=== PATIENT | male | born 1945 | race Caucasian/White ===

== ENCOUNTER 2022-12-15 01:49 | Inpatient (IN) ==
[2022-12-15 03:44] LABS: Hematocrit (blood only) 31.5 % (42.0-52.0); Hemoglobin 10.8 g/dl (14.0-18.0); Mean Corpuscular Hemoglobin 31.3 pg (25.0-34.0); Mean Corpuscular Hgb Conc 34.3 g/dL (32.0-36.0); Mean Corpuscular Volume 91.3 fL (80.0-100.0); Mean Platelet Volume 10.3 fL (9.4-12.4); Platelet Count 99 K/uL (130-400); RDW Coefficient of Variation 14.3 % (11.5-14.5); RDW Standard Deviation 47.9 fL (36.4-46.3); Red Blood Count 3.45 M/uL (4.70-6.10); White Blood Count 4.13 K/ul (4.8-10.8)
[2022-12-15 03:45] LABS: Albumin Level 3.2 gm/dl (3.4-5.0); BUN Creatinine Ratio 34.6 (10-20); Bilirubin Direct 0.3 mg/dl (0-0.2); Calcium 8.4 mg/dl (8.6-10.3); Creatinine Clr Calc Pharmacy 82.5 ml/min; Est GFR (African American) 98.7 ml/min; Est GFR (Non-African American) 85.1 ml/min; Magnesium 1.7 mg/dl (1.7-2.4); Potassium 3.7 mmol/L (3.5-5.1); Total Protein 5.3 gm/dl (6.0-8.3)
[2022-12-15 03:51] LABS: Troponin I High Sensitivity 30.5 pg/ml (0-20)
--- NOTE | 2022-12-15 03:56 | Emergency Department Note ---
Impression & Plan Sepsis, Elevated troponin Admit to the [facility] ED Provider Note NAME: MIKE [id number] BEATA AGE: 77 SEX: M ARRIVES VIA: Ambulance INFORMANT: Patient ED PROVIDER(S): Mckenzie Henry DO CHIEF COMPLAINT: Fever PLAN: Disposition: Admit to the [facility] Condition: Guarded MEDICAL DECISION MAKING: This is a 77-year-old male patient from [facility] who presented to the ER with a fever. Patient has a history of colorectal cancer and underwent chemotherapy last evening. Patient was apparently short of breath and confused and had a significant cough. O2 saturations were in the 80s. He was transported here for evaluation. Patient had septic protocol performed and does have an elevated lactate and procalcitonin consistent with sepsis. He was treated with broad-spectrum antibiotics. Chest x-ray was quite concerning for metastatic disease. CT scan of the chest was performed to confirm this. Patient does have an elevated troponin most likely consistent with demand ischemia. His blood pressure remained stable. I discussed the case with the [facility]. Triage Nursing notes reviewed and agree with them. Vital Signs: reviewed and remarkable for fever Differential diagnosis: Sepsis, neutropenic fever, pneumonia, UTI ER treatment provided: Cardiac monitoring, supplemental O2, twelve-lead EKG, IV Zosyn, IV vancomycin, IV normal saline bolus-total 2500 cc Diagnostics interpreted by me: ECG: Normal sinus rhythm at a rate of 96 with a poor baseline. No obvious signs of ischemia. Cardiac Monitoring: Normal sinus rhythm at 85 Laboratory studies: See below Imaging studies: As per my independent interpretation Portable chest x-ray: Diffuse metastatic disease to the lungs. HPI: 77/M arrives for evaluation of fever. Patient has history of metastatic colon cancer and underwent chemotherapy at 5 PM yesterday. He developed a fever tonight of 102.2 along with some shortness of breath, cough and confusion. O2 saturations were 88% and he was sent here for evaluation. ROS: See above HPI for pertinent positives & negatives. A total of 10 systems reviewed and were otherwise negative. PAST MEDICAL HISTORY:See Below PAST SURGICAL HISTORY:See Below FAMILY HISTORY:See Below SOCIAL HISTORY:See Below HOME MEDICATIONS:See list ALLERGIES:See list VITALS:See Below PHYSICAL EXAMINATION: HEENT: Head - normocephalic and atraumatic. Pupils are equal, round, and reactive to light. Extraocular eye muscles are intact, and sclera are anicteric. Nose - moist nasal mucosa without discharge. Mouth - moist buccal mucosa. Oropharynx is nonerythematous and there is no tonsillar exudate or edema noted. Neck: Supple; no JVD, nuchal rigidity, cervical lymphadenopathy, or auscultated bruits. Heart: Regular rate and rhythm. There is a normal S1 and S2 with no murmurs, clicks, or gallops appreciated. Lungs: Clear to auscultation bilaterally with no wheezes, rales, or rhonchi. Abdomen: Soft, completely nontender, nondistended, with good bowel sounds. There are no palpable pulsatile masses or hepatosplenomegaly. There is no guarding, rigidity, or rebound noted. Extremities: No evidence of cyanosis, clubbing, or edema. There are easily palpable peripheral pulses. Skin: Patient has maculopapular lesions about the palms and soles. Rest of his skin is warm and dry with no obvious rashes. ED COURSE: Times/Reassessments: 255 patient was evaluated in room A-10. A septic work-up performed. An order was placed for continuous cardiac monitoring. Patient was in a normal sinus rhythm at a rate of 85. Patient was bolused with a liter of normal saline solution. Chest x-ray was performed. Twelve-lead EKG was obtained. Patient went for CT scan of the chest. Patient was started on IV Zosyn and IV vancomycin. Patient received additional normal saline bolus to meet criteria of 30 mL/kg no rmal saline. I reviewed the results of the labs and radiographic studies with the patient. Mkcenzie Henry DO Past Med/Surg History Medical History (Updated 12/15/22 @ 22:56 by Mckenzie Henry DO) Cirrhosis of liver Colon cancer Constipation COPD (chronic obstructive pulmonary disease) Esophageal varices without bleeding HCV (hepatitis C virus) Hearing loss Hyperlipidemia Hypertension Hypothyroidism Inmate in correctional facility Low back pain Malignant neoplasm Thrombocytopenia Surgical History History of cataract surgery Family History Other Unknown family medical history Social History Smoking Status: Former smoker Second Hand Exposure: No; Do You Dip or Chew Tobacco: No; Tobacco Cessation Education Requested by Patient: No Hx Alcohol Use: No Hx Substance Use: No Preferred Language: Bengali Communication Ability: Effective 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: No Beliefs That Will Affect Care: None Current Living Situation: Other Current Living Situation Comment: [facility] Other Information That Helps Us Care for You: No Feels Safe at Home: Yes Safety Concerns: Feels Safe At This Time Assistive Devices: Denture - Upper, Denture - Lower and Glasses Allergies Allergies Allergy/AdvReac Type Severity Reaction Status Date / Time nitrofurantoin Allergy LISTED ON Verified 06/30/22 14:25 [From Macrobid] MEDICAL RECORD sodium chloride Allergy LISTED ON Verified 06/30/22 14:25 [From [place] Nasal] MEDICAL RECORD Home Meds Home Medications Medication Instructions Recorded Confirmed carvedilol 3.125 mg tablet 3.125 mg PO BID 04/13/21 12/15/22 diltiazem HCl 240 mg capsule,24 240 mg PO DAILY 04/13/21 12/15/22 hr,extended release enalapril maleate 10 mg tablet 10 mg PO QAM 04/13/21 12/15/22 levothyroxine 25 mcg tablet 25 mcg PO QAM 04/13/21 12/15/22 lactulose 10 gram/15 mL oral 20 g PO BID 06/30/22 12/15/22 solution tamsulosin 0.4 mg capsule 0.4 mg PO DAILY 06/30/22 12/15/22 ascorbic acid (vitamin C) 500 mg 500 mg PO DAILY 08/06/22 12/15/22 tablet ferrous gluconate 324 mg (38 mg 324 mg PO DAILY 08/06/22 12/15/22 iron) tablet Results & Data (ED) Vital Signs Vital Signs - 24 hr 12/15/22 01:51 12/15/22 01:59 12/15/22 02:00 Temperature 39 C H Temperature Source Oral Pulse Rate 100 H 98 H 98 H Respiratory Rate 22 24 Blood Pressure 132/62 130/62 Blood Pressure Mean 85 84 Pulse Oximetry 92 88 L Oxygen Delivery Method Room Air Room Air Oxygen Flow Rate Sepsis Recent Fever Within 48 Hours Yes Sepsis New/Unexplained Change in Mental Status No Sepsis Action Taken by Nursing No Action Required 12/15/22 02:15 12/15/22 02:25 12/15/22 02:30 Temperature Temperature Source Pulse Rate 93 H 92 H Respiratory Rate 21 20 Blood Pressure 122/57 L Blood Pressure Mean 78 Pulse Oximetry 92 93 91 Oxygen Delivery Method Nasal Cannula Nasal Cannula Nasal Cannula Oxygen Flow Rate 2 2 2 Sepsis Recent Fever Within 48 Hours Sepsis New/Unexplained Change in Mental Status Sepsis Action Taken by Nursing 12/15/22 02:45 12/15/22 03:00 12/15/22 03:15 Temperature Temperature Source Pulse Rate 89 87 85 Respiratory Rate 21 21 17 Blood Pressure 109/54 L Blood Pressure Mean 72 Pulse Oximetry 96 93 93 Oxygen Delivery Method Nasal Cannula Room Air Nasal Cannula Oxygen Flow Rate 2 2 Sepsis Recent Fever Within 48 Hours Sepsis New/Unexplained Change in Mental Status Sepsis Action Taken by Nursing 12/15/22 03:30 12/15/22 03:45 12/15/22 04:00 Temperature Temperature Source Pulse Rate 85 86 81 Respiratory Rate 18 17 15 Blood Pressure 114/53 L 108/49 L Blood Pressure Mean 73 68 Pulse Oximetry 93 90 87 L Oxygen Delivery Method Nasal Cannula Nasal Cannula Nasal Cannula Oxygen Flow Rate 2 2 2 Sepsis Recent Fever Within 48 Hours Sepsis New/Unexplained Change in Mental Status Sepsis Action Taken by Nursing 12/15/22 04:15 12/15/22 04:17 12/15/22 04:30 Temperature Temperature Source Pulse Rate 85 84 81 Respiratory Rate 23 24 19 Blood Pressure 116/56 L 133/52 L Blood Pressure Mean 76 79 Pulse Oximetry 94 95 95 Oxygen Delivery Method Oxymask Oxymask Oxymask Oxygen Flow Rate 4 4 4 Sepsis Recent Fever Within 48 Hours Sepsis New/Unexplained Change in Mental Status Sepsis Action Taken by Nursing 12/15/22 04:45 12/15/22 05:00 12/15/22 05:15 Temperature Temperature Source Pulse Rate 81 83 81 Respiratory Rate 19 18 20 Blood Pressure 125/52 L 134/53 L 128/52 L Blood Pressure Mean 76 80 77 Pulse Oximetry 94 95 94 Oxygen Delivery Method Oxymask Oxymask Oxymask Oxygen Flow Rate 4 4 4 Sepsis Recent Fever Within 48 Hours Sepsis New/Unexplained Change in Mental Status Sepsis Action Taken by Nursing Laboratory Data 12/15/22 02:50 12/15/22 02:50 Lab Results 12/15/22 12/15/22 12/15/22 Range/Units 02:50 02:50 02:50 WBC 4.13 L (4.8-10.8) K/ul RBC 3.45 L (4.70-6.10) M/uL Hgb 10.8 L (14.0-18.0) g/dl Hct 31.5 L (42.0-52.0) % MCV 91.3 (80.0-100.0) fL MCH 31.3 (25.0-34.0) pg MCHC 34.3 (32.0-36.0) g/dL RDW Std Deviation 47.9 H (36.4-46.3) fL RDW Coeff of Jessica 14.3 (11.5-14.5) % Plt Count 99 L (130-400) K/uL MPV 10.3 (9.4-12.4) fL Immature Gran % (Auto) 0.5 % Neut % (Auto) 93.5 % Lymph % (Auto) 1.2 % [place] % (Auto) 4.1 % Eos % (Auto) 0.2 % Baso % (Auto) 0.5 % Neut # (Auto) 3.86 (1.40-6.50) K/uL Lymph # (Auto) 0.05 L (1.2-3.4) K/uL [place] # (Auto) 0.17 (0.11-0.59) K/uL Eos # (Auto) 0.01 (0-0.50) K/uL Baso # (Auto) 0.02 (0-0.2) K/uL Immature Gran # (Auto) 0.02 (0.01-0.20) K/uL Tear Drop Cells 1+ Ovalocytes 1+ Sodium 137 (136-145) mmol/L Potassium 3.7 (3.5-5.1) mmol/L Chloride 107 (98-107) mmol/L Carbon Dioxide 21 (21-32) mmol/L Anion Gap 9 (3-11) BUN 28 H (6-23) mg/dl Creatinine 0.81 (0.6-1.4) mg/dl Est Cr Clr Drug Dosing 82.5 ml/min Est GFR ( Amer) 98.7 ml/min Est GFR (Non-Af Amer) 85.1 ml/min BUN/Creatinine Ratio 34.6 H (10-20) Glucose 165 H (70-99(Fasting)) mg/dl Lactate (0.4-2.0) mmol/L Calcium 8.4 L (8.6-10.3) mg/dl Magnesium 1.7 (1.7-2.4) mg/dl Total Bilirubin 1.0 (0.2-1.0) mg/dl Direct Bilirubin 0.3 H (0-0.2) mg/dl AST 54 H (13-39) U/L ALT 40 (7-52) U/L Alkaline Phosphatase 184 H (34-104) U/L Troponin I High Sens 30.5 H (0-20) pg/ml Total Protein 5.3 L (6.0-8.3) gm/dl Albumin 3.2 L (3.4-5.0) gm/dl Procalcitonin 2.40 H (0-0.5) ng/ml SARS-CoV-2 (PCR) (Negative) Influenza Type A (PCR) (Neg) Influenza Type B (PCR) (Neg) RSV (RT-PCR) (Neg) 12/15/22 12/15/22 12/15/22 Range/Units 03:10 03:18 05:09 WBC (4.8-10.8) K/ul RBC (4.70-6.10) M/uL Hgb (14.0-18.0) g/dl Hct (42.0-52.0) % MCV (80.0-100.0) fL MCH (25.0-34.0) pg MCHC (32.0-36.0) g/dL RDW Std Deviation (36.4-46.3) fL RDW Coeff of Jessica (11.5-14.5) % Plt Count (130-400) K/uL MPV (9.4-12.4) fL Immature Gran % (Auto) % Neut % (Auto) % Lymph % (Auto) % [place] % (Auto) % Eos % (Auto) % Baso % (Auto) % Neut # (Auto) (1.40-6.50) K/uL Lymph # (Auto) (1.2-3.4) K/uL [place] # (Auto) (0.11-0.59) K/uL Eos # (Auto) (0-0.50) K/uL Baso # (Auto) (0-0.2) K/uL Immature Gran # (Auto) (0.01-0.20) K/uL Tear Drop Cells Ovalocytes Sodium (136-145) mmol/L Potassium (3.5-5.1) mmol/L Chloride (98-107) mmol/L Carbon Dioxide (21-32) mmol/L Anion Gap (3-11) BUN (6-23) mg/dl Creatinine (0.6-1.4) mg/dl Est Cr Clr Drug Dosing ml/min Est GFR ( Amer) ml/min Est GFR (Non-Af Amer) ml/min BUN/Creatinine Ratio (10-20) Glucose (70-99(Fasting)) mg/dl Lactate 2.2 H* 1.4 (0.4-2.0) mmol/L Calcium (8.6-10.3) mg/dl Magnesium (1.7-2.4) mg/dl Total Bilirubin (0.2-1.0) mg/dl Direct Bilirubin (0-0.2) mg/dl AST (13-39) U/L ALT (7-52) U/L Alkaline Phosphatase (34-104) U/L Troponin I High Sens (0-20) pg/ml Total Protein (6.0-8.3) gm/dl Albumin (3.4-5.0) gm/dl Procalcitonin (0-0.5) ng/ml SARS-CoV-2 (PCR) NEGATIVE (Negative) Influenza Type A (PCR) Negative (Neg) Influenza Type B (PCR) Negative (Neg) RSV (RT-PCR) Negative (Neg) Administered Medications Ascorbic Acid (Ascorbic Acid 500 Mg Tab) 500 mg PO DAILY [facility] Stop: 01/14/23 09:59 Last Admin: 12/15/22 14:16 Dose: 500 mg Documented By: CHANDLER Carvedilol (Carvedilol 3.125 Mg Tab) 3.125 mg PO BID [facility]E Stop: 01/14/23 08:59 Last Admin: 12/15/22 20:53 Dose: 3.125 mg Documented By: Admin: 12/15/22 09:18 Dose: 3.125 mg Documented By: CHANDLER Diltiazem HCl (Diltiazem Hcl 240 Mg Capcr) 240 mg PO DAILY [facility] Stop: 01/14/23 08:59 Last Admin: 12/15/22 09:19 Dose: 240 mg Documented By: CHANDLER Enalapril Maleate (Enalapril Maleate 10 Mg Tab) 10 mg PO QAM [facility] Stop: 01/14/23 08:59 Last Admin: 12/15/22 09:19 Dose: 10 mg Documented By: CHANDLER Ferrous Gluconate (Ferrous Gluconate 324 Mg Tab) 324 mg PO DAILY [facility] Stop: 01/14/23 08:59 Last Admin: 12/15/22 14:16 Dose: 324 mg Documented By: CHANDLER Heparin Sodium (Porcine) (Heparin Sod 5,000 Unit/0.5 Ml Vial) 5,000 units SQ Q12 [facility]E Stop: 01/14/23 08:59 Last Admin: 12/15/22 20:53 Dose: 5,000 units Documented By: Admin: 12/15/22 09:20 Dose: 5,000 units Documented By: CHANDLER Vancomycin HCl 1,000 mg/ (Sodium Chloride) 270 mls @ 200 mls/hr IV Q12H CHARLETTE; Protocol Stop: 12/17/22 10:59 Last Infusion: 12/15/22 13:08 Dose: 0 mls/hr Documented By: Admin: 12/15/22 11:23 Dose: 200 mls/hr Documented By: CHANDLER Cefepime HCl 2,000 mg/ Syringe 20 mls @ 5 mls/min IV Q8H CHARLETTE; Protocol Stop: 12/17/22 07:59 Last Admin: 12/15/22 16:44 Dose: 5 mls/min Documented By: Admin: 12/15/22 09:18 Dose: 5 mls/min Documented By: CHANDLER Lactulose (Lactulose Syrup 20 Gm/30 Ml Udc) 20 gm PO BID [facility]E Stop: 01/14/23 08:59 Last Admin: 12/15/22 20:53 Dose: 20 gm Documented By: Admin: 12/15/22 09:19 Dose: 20 gm Documented By: CHANDLER Levothyroxine Sodium (Levothyroxine Sodium 25 Mcg Tablet) 25 mcg PO DAILYBB [facility] Stop: 01/14/23 07:14 Last Admin: 12/15/22 09:18 Dose: 25 mcg Documented By: CHANDLER Tamsulosin HCl (Tamsulosin Hcl 0.4 Mg Cap) 0.4 mg PO DAILY [facility] Stop: 01/14/23 08:59 Last Admin: 12/15/22 09:20 Dose: 0.4 mg Documented By: CHANDLER Discontinued Medications Sodium Chloride (Nss 1000ml) 2,000 mls @ 999 mls/hr IV .Q2H1M ONE Stop: 12/15/22 06:01 Last Infusion: 12/15/22 05:10 Dose: 0 mls/hr Documented By: Admin: 12/15/22 04:11 Dose: 999 mls/hr Documented By: THIERRY Vancomycin HCl 1,500 mg/ (Sodium Chloride) 530 mls @ 200 mls/hr IV NOW ONE Stop: 12/15/22 06:52 Last Admin: 12/15/22 04:54 Dose: 200 mls/hr Documented By: THIERRY Piperacillin Sod/Tazobactam Sod (Zosyn) 4.5 gm in 120 mls @ 240 mls/hr IV NOW ONE Stop: 12/15/22 04:43 Last Infusion: 12/15/22 04:57 Dose: 0 mls/hr Documented By: Admin: 12/15/22 04:20 Dose: 240 mls/hr Documented By: THIERRY Sodium Chloride (Nss 1000ml) 1,000 mls @ 100 mls/hr IV .Q10H [facility]TTE Stop: 12/15/22 23:29 Last Infusion: 12/15/22 23:26 Dose: 0 mls/hr Documented By: Admin: 12/15/22 13:26 Dose: 100 mls/hr Documented By: CHANDLER Ioversol (Optiray 350 100ml) 100 ml IV ONCE ONE Stop: 12/15/22 05:43 Last Admin: 12/15/22 05:43 Dose: 84 ml Documented By: IRVIN Discharge Plan Visit Data Chief Complaint: Fever Stated Complaint: Fever, Weakness, Confusion ED Provider: Mckenzie Henry Discharge Problem: Sepsis, Elevated troponin Patient Disposition: Admitted As Inpatient Discharge Instructions Interventions: ED Discharge Assessment Last Done: 12/15/22 06:30
[2022-12-15 04:01] LABS: Influenza A virus by PCR Negative (Neg); Influenza B virus by PCR Negative (Neg); RSV by PCR Negative (Neg); SARS CoV2 RNA(COVID-19) Ceph NEGATIVE (Negative)
[2022-12-15] MEDS ORDERED: SODIUM CHLORIDE 0.9% 1000ML 2,000 ML IV ONE (04:01)
[2022-12-15 04:10] LABS: Basophils # (auto) 0.02 K/uL (0-0.2); Basophils % (auto) 0.5 %; Eosinophils # (auto) 0.01 K/uL (0-0.50); Eosinophils % (auto) 0.2 %; Immature Granulocytes # (auto) 0.02 K/uL (0.01-0.20); Immature Granulocytes % (auto) 0.5 %; Lymphocytes # (auto) 0.05 K/uL (1.2-3.4); Lymphocytes % (auto) 1.2 %; Monocytes # (auto) 0.17 K/uL (0.11-0.59); Monocytes % (auto) 4.1 %; Neutrophils # (auto) 3.86 K/uL (1.40-6.50); Neutrophils % (auto) 93.5 %; Ovalocytes 1+; Tear Drop Cells 1+
[2022-12-15] MEDS ORDERED: PIPERACILLIN/TAZOBACTAM 4.5 GM/120 ML BAG IV ONE (04:14)
[2022-12-15] MEDS ORDERED: VANCOMYCIN CONSULT ACTIVE PRN (04:14)
[2022-12-15] MEDS ORDERED: VANCOMYCIN HCL 1,500 MG in SODIUM CHLORIDE 0.9% 500 ML IV ONE (04:14)
--- NOTE | 2022-12-15 05:26 | History & Physical Report ---
Date of Service December 15, 2022 Assessment & Plan (1) Shortness of breath: Plan: Shortness of breath * O2 via NC/oxy mask as needed. Wean as tolerated. * Chest CT pending * Blood cultures pending, urine culture pending * Empiric antibiotics: Vancomycin, cefepime. MRSA nares swab pending * Trend lactate Metastatic colon cancer with liver mets -Received chemotherapy treatments in longterm * DVT prophylaxis: SQ heparin 5000 units every 12 hours Elevated troponin * Trend troponin every 6 hours x4 Chronic conditions (hypertension, hypothyroidism, BPH, anemia): Continue home medications. Code: Full code Dispo: Med-Surg telemetry FEN/GI: Heart healthy DVT Prophylaxis: Heparin PT/OT: Consults: (2) Metastatic colon cancer to liver: (3) Pancytopenia with fever: (4) Cirrhosis of liver: History of Present Illness Primary Care Provider: SANTO Marsha Martin is a 77-year-old male patient from [facility] with a past medical history of metastatic colon cancer with liver mets, and cirrhosis of the liver, who presented to the ER with a fever. Patient has a history of colorectal cancer and underwent chemotherapy at 5 PM yesterday. Patient was apparently short of breath and confused and had a significant cough. O2 saturations were in the 80s. Temperature high as 102.2. He was transported here for evaluation. In the emergency room, temperature elevated at 39 C. CBC revealed pancytopenia. Procalcitonin of 2.4. Respiratory screen negative. EKG showed NSR at [address] elevations or other signs of ischemia. He received a 2 L bolus of normal saline, and was given IV Zosyn and vancomycin empirically. On admission, continues to endorse fatigue cough but reports improvement with shortness of breath. Allergies Allergy/AdvReac Type Severity Reaction Status Date / Time nitrofurantoin Allergy LISTED ON Verified 06/30/22 14:25 [From Macrobid] MEDICAL RECORD sodium chloride Allergy LISTED ON Verified 06/30/22 14:25 [From [place] Nasal] MEDICAL RECORD Home Medications Medication Instructions Recorded Confirmed Type carvedilol 3.125 mg tablet 3.125 mg PO BID 04/13/21 12/15/22 History diltiazem HCl 240 mg capsule,24 240 mg PO DAILY 04/13/21 12/15/22 History hr,extended release enalapril maleate 10 mg tablet 10 mg PO QAM 04/13/21 12/15/22 History levothyroxine 25 mcg tablet 25 mcg PO QAM 04/13/21 12/15/22 History lactulose 10 gram/15 mL oral 20 g PO BID 06/30/22 12/15/22 History solution tamsulosin 0.4 mg capsule 0.4 mg PO DAILY 06/30/22 12/15/22 History ascorbic acid (vitamin C) 500 mg 500 mg PO DAILY 08/06/22 12/15/22 History tablet ferrous gluconate 324 mg (38 mg 324 mg PO DAILY 08/06/22 12/15/22 History iron) tablet albuterol sulfate 90 mcg/actuation 2 puff inhalation TIDR PRN 12/17/22 Rx aerosol inhaler (Ventolin HFA) shortness of breath or wheezing #8.5 grams levofloxacin 750 mg tablet 750 mg PO DAILY #3 tabs 12/17/22 Rx Past Med/Surg History Medical History (Updated 12/16/22 @ 15:43 by Nika Rebolledo MD) Cirrhosis of liver Colon cancer Constipation COPD (chronic obstructive pulmonary disease) Esophageal varices without bleeding HCV (hepatitis C virus) Hearing loss Hyperlipidemia Hypertension Hypothyroidism Inmate in correctional facility Low back pain Malignant neoplasm Thrombocytopenia Surgical History History of cataract surgery Family History Other Unknown family medical history Social History Smoking Status: Former smoker Second Hand Exposure: No; Hx Alcohol Use: No Hx Substance Use: No Preferred Language: Belarusian Communication Ability: Effective Technology 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 Normal conjunctiva, anicteric sclera. Oropharynx normal. Respiratory: Bibasilar rhonchi L >R. Diffuse crackles. Cardiovascular: RRR without murmurs, gallops, or rubs. No edema. GI: Soft abdomen with normal bowel sounds heard on auscultation. Nontender x4 quadrants Neuro: Alert and oriented x3. Results & Data Results & Data Vital Signs (Past 12 Hours) Vital Signs Temp Pulse Resp BP Pulse Ox O2 Del Method O2 Flow Rate 12/15/22 04:15 85 23 94 Oxymask 4 12/15/22 04:00 81 15 108/49 L 87 L Nasal Cannula 2 12/15/22 03:45 86 17 90 Nasal Cannula 2 12/15/22 03:30 85 18 114/53 L 93 Nasal Cannula 2 12/15/22 03:15 85 17 93 Nasal Cannula 2 12/15/22 03:00 87 21 109/54 L 93 Room Air 12/15/22 02:45 89 21 96 Nasal Cannula 2 12/15/22 02:30 92 H 20 122/57 L 91 Nasal Cannula 2 12/15/22 02:25 93 Nasal Cannula 2 12/15/22 02:15 93 H 21 92 Nasal Cannula 2 12/15/22 02:00 98 H 24 130/62 88 L Room Air 12/15/22 01:59 98 H 12/15/22 01:51 39 C H 100 H 22 132/62 92 Room Air Supervising Physician Co-Signing Physician Notes Attending addendum: I have physically seen this patient, have supervised the medical residents activities, and agree with the H&P unless as otherwise noted. Assessment and Plan: Elevated troponin/hypertension- Troponin 30.5 on admission The patient will be admitted to telemetry for serial cardiac enzymes, serial EKG's, cardiac rhythm monitoring and a 2-D echocardiogram with Dopplers. Sepsis- Temperature 39.0 History of metastatic colon cancer status post chemotherapy yesterday Empiric antibiotics with vancomycin IV and Zosyn IV Follow all cultures and sensitivities Hypothyroidism- Continue levothyroxine BPH with LUTS- Continue tamsulosin Follow urine culture and sensitivity Hypertension- Hold enalapril- Continue carvedilol and diltiazem with hold parameters Remaining orders and notations as noted Resident Activity Tracking Resident Involvement: Resident Care Provided Care Provided: Adult Hospital Medicine
[2022-12-15] MEDS ORDERED: OPTIRAY 350 100ml IV ONE (05:42)
--- NOTE | 2022-12-15 06:11 | CT Scan Report ---
Exam(s): CT CHEST With Contrast IV Amt: 84 ML OPTIRAY 350 EXAM: CT Chest With Intravenous Contrast CLINICAL HISTORY: Reason for exam: eval pnx, mets, chf. TECHNIQUE: Axial computed tomography images of the chest with intravenous contrast. Automated exposure control was utilized for the study. A dose lowering technique was utilized adhering to the principles of ALARA. CONTRAST: Patient received 84 ML OPTIRAY 350 of IV contrast COMPARISON: No relevant prior studies available. FINDINGS: Lungs: Innumerable pulmonary nodules throughout the lungs consistent with metastatic disease, largest measuring up to approximately 1.8 cm. 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 Pleural space: No pneumothorax. No significant effusion. Heart: Mild cardiomegaly. Moderate coronary atherosclerosis. No significant pericardial effusion. Bones/joints: No acute fracture. No dislocation. Soft tissues: Unremarkable. Vasculature: See findings above and below. Lymph nodes: Multiple prominent mediastinal lymph nodes which may reflect spread of disease. Liver: Nodular liver suggestive of cirrhosis. Multiple hypodensities throughout the liver concerning for metastatic disease. Spleen: Splenomegaly and partially visualized varices in the left upper quadrant suggestive of portal hypertension. Adrenals: Approximately 2.8 cm left adrenal nodule concerning for metastatic disease. Tubes, lines and devices: Right chest port catheter with tip in the right atrium. IMPRESSION: No pneumothorax. Extensive pulmonary metastatic disease as detailed above. Incompletely imaged sequela of portal hypertension as detailed above. Superimposed liver lesions could reflect additional metastatic lesions. Correlation with clinical history and prior imaging suggested. Electronically signed by: Fausto Meng M.D. 12/15/22 06:10 AM
[2022-12-15 06:22] LABS: Appearance Urine Cloudy (Clear); Bacteria Urine Automated Negative (Negative); Bilirubin Urine Negative (Negative); Blood Urine Negative (Negative); Color Urine Dark Yellow; Glucose Urine UA Negative (Negative); Ketones Urine Trace (Negative); Leukocyte Esterase Urine Negative (Negative); Nitrite Urine Negative (Negative); Protein Urine Trace (Negative); Specific Gravity Urine 1.033 (1.000-1.030); Urobilinogen Urine Negative (Negative)
--- NOTE | 2022-12-15 07:34 | XRay Report ---
XR chest 1V portable CLINICAL HISTORY: Sepsis TECHNIQUE: Single frontal radiograph of the chest was obtained. Comparison: Comparison is made to CT chest 12/15/2022 FINDINGS: A port catheter is seen. Calcified aortic knob is seen. Multifocal nodular disease is seen within the lungs. No evidence of pleural effusion or pneumothorax. IMPRESSION: Multifocal nodular disease is seen which may represent extensive pulmonary metastases, less likely in fectious/inflammatory. Correlation with recently performed CT is recommended. ACT 112: Negative or not required by law. Electronically signed by: Anson Mccann M.D. 12/15/2022 7:33 AM
[2022-12-15] MEDS ORDERED: ACETAMINOPHEN 325 MG TAB PO PRN (08:50)
[2022-12-15] MEDS: CEFEPIME 2,000 MG in SYRINGE 0 ML IV SCH ×2 (09:18→16:44)
[2022-12-15] MEDS: LEVOTHYROXINE SODIUM 25 MCG TABLET PO SCH (09:18)
[2022-12-15] MEDS: carvediloL 3.125 MG TAB PO SCH ×2 (09:18→20:53)
[2022-12-15] MEDS: dilTIAZem HCL 240 MG CAPCR PO SCH (09:19)
[2022-12-15] MEDS: ENALAPRIL MALEATE 10 MG TAB PO SCH (09:19)
[2022-12-15] MEDS: LACTULOSE SYRUP 20 GM/30 ML UDC PO SCH ×2 (09:19→20:53)
[2022-12-15] MEDS: FERROUS GLUCONATE 324 MG TAB PO SCH ×2 (09:19→14:16)
[2022-12-15] MEDS: HEPARIN SOD 5,000 UNIT/0.5 ML VIAL SQ SCH ×2 (09:20→20:53)
[2022-12-15] MEDS: TAMSULOSIN HCL 0.4 MG CAP PO SCH (09:20)
--- NOTE | 2022-12-15 10:11 | Pharmacy Report ---
Pharmacy PK ABX Note - Date of Service December 15, 2022 - Assessment and Plan Assessment 77 year old M receiving empiric vancomycin and cefepime for treatment of febrile illness in context of metastatic colon cancer. Pertinent microbiologic data includes: Negative MRSA Nasal Swab, blood cultures x 2 pending. Hospitalist aware of negative MRSA swab, but would like to continue vancomycin for at least 48 hours given complicated PMH. Most recent administration of chemotherapy was yesterday @~1700. On presentation, patient febrile w/ confusion and shortness of breath. Day # 1 of antimicrobial therapy. Plan Vancomycin * Loading dose: 1500 mg IV x 1 * Maintenance dose: 1000 mg IV every 12 hours * Regimen is predicted to achieve target AUC/LAKIA of 400-600 mg/L.hr * Random level ordered for: 12/17/22 Cefepime * 2 g IV q8h - appropriate based on indication/renal function Pharmacy will continue to follow and will adjust dose/frequency as necessary. Thank you. Pharmacy has transitioned to AUC monitoring for vancomycin. AUC/LAKIA is the preferred PK/PD target and is associated with decreased risk of nephrotoxicity compared to traditional trough targets.
--- NOTE | 2022-12-15 11:03 | History & Physical Bridge Note ---
Date of Service December 15, 2022 History & Physical Bridge Note I have reviewed the History & Physical and in the interval since the performance of the History & Physical I have noted the following changes of clinical significance: Added serial troponin to trend given elevation on admission but suspect demand i schemia in setting of sepsis. MRSA swab negative but given port, possible PNA superimposed on pulm mets, and on chemotherapy, will continue Vanco empirically until BCxs neg for at least 48 hours. Added home Vit C which he wants to take with his Fe pill as he does at home Reviewed CT Chest-extensive metastatic dz and nodules, possible lymphangitic spread
[2022-12-15] MEDS: VANCOMYCIN HCL 1,000 MG in SODIUM CHLORIDE 0.9% 250 ML IV SCH (11:23)
[2022-12-15] MEDS ORDERED: SODIUM CHLORIDE 0.9% 1000ML 1,000 ML IV SCH (13:30)
[2022-12-15] MEDS: ASCORBIC ACID 500 MG TAB PO SCH (14:16)
[2022-12-16] MEDS: VANCOMYCIN HCL 1,000 MG in SODIUM CHLORIDE 0.9% 250 ML IV SCH ×3 (00:11→23:00)
[2022-12-16] MEDS: CEFEPIME 2,000 MG in SYRINGE 0 ML IV SCH ×3 (00:11→15:54)
[2022-12-16] MEDS ORDERED: HEPARIN 100 UNIT/ML 5ML FLUSH FLUSH PRN (01:03)
--- NOTE | 2022-12-16 05:53 | Electrocardiogram Report ---
Test Reason : Blood Pressure : / mmHG Vent. Rate : 096 BPM Atrial Rate : 096 BPM P-R Int : 160 ms QRS Dur : 136 ms QT Int : 494 ms P-R-T Axes : 058 -41 000 degrees QTc Int : 624 ms Poor data quality, interpretation may be adversely affected Sinus rhythm Left axis deviation Non-specific intra-ventricular conduction block Nonspecific T wave abnormality Abnormal ECG No previous ECGs available Confirmed by Keegan العراقي ([id number]) on 12/16/2022 5:53:39 AM Referred By: [facility] Confirmed By:Keegan العراقي
[2022-12-16] MEDS: LEVOTHYROXINE SODIUM 25 MCG TABLET PO SCH (06:04)
[2022-12-16 07:27] LABS: Basophils # (auto) 0.02 K/uL (0-0.2); Basophils % (auto) 0.5 %; Eosinophils # (auto) 0.09 K/uL (0-0.50); Eosinophils % (auto) 2.2 %; Hematocrit (blood only) 31.1 % (42.0-52.0); Hemoglobin 10.7 g/dl (14.0-18.0); Immature Granulocytes # (auto) 0.02 K/uL (0.01-0.20); Immature Granulocytes % (auto) 0.5 %; Lymphocytes # (auto) 0.16 K/uL (1.2-3.4); Lymphocytes % (auto) 3.9 %; Mean Corpuscular Hemoglobin 30.9 pg (25.0-34.0); Mean Corpuscular Hgb Conc 34.4 g/dL (32.0-36.0); Mean Corpuscular Volume 89.9 fL (80.0-100.0); Mean Platelet Volume 10.9 fL (9.4-12.4); Monocytes % (auto) 7.3 %; Neutrophils # (auto) 3.51 K/uL (1.40-6.50); Neutrophils % (auto) 85.6 %; Platelet Count 86 K/uL (130-400); RDW Coefficient of Variation 14.4 % (11.5-14.5); RDW Standard Deviation 47.5 fL (36.4-46.3); Red Blood Count 3.46 M/uL (4.70-6.10)
[2022-12-16 07:46] LABS: Albumin Globulin Ratio 1.4 (0.9-2); BUN Creatinine Ratio 46.9 (10-20); Bilirubin,Total 0.9 mg/dl (0.2-1.0); Calcium 8.5 mg/dl (8.6-10.3); Creatinine Clr Calc Pharmacy 104.4 ml/min; Est GFR (African American) 108.7 ml/min; Est GFR (Non-African American) 93.8 ml/min; Globulin 2.1 gm/dl (2.5-4.0); Magnesium 1.8 mg/dl (1.7-2.4); Phosphorus 2.5 mg/dl (2.5-4.9); Total Protein 5.1 gm/dl (6.0-8.3)
[2022-12-16] MEDS: carvediloL 3.125 MG TAB PO SCH ×2 (09:09→20:16)
[2022-12-16] MEDS: ASCORBIC ACID 500 MG TAB PO SCH (09:10)
[2022-12-16] MEDS: dilTIAZem HCL 240 MG CAPCR PO SCH (09:10)
[2022-12-16] MEDS: ENALAPRIL MALEATE 10 MG TAB PO SCH (09:10)
[2022-12-16] MEDS: FERROUS GLUCONATE 324 MG TAB PO SCH (09:11)
[2022-12-16] MEDS: HEPARIN SOD 5,000 UNIT/0.5 ML VIAL SQ SCH ×2 (09:11→20:16)
[2022-12-16] MEDS: TAMSULOSIN HCL 0.4 MG CAP PO SCH ×3 (09:13→20:16)
[2022-12-16] MEDS: LACTULOSE SYRUP 20 GM/30 ML UDC PO SCH ×2 (09:26→20:16)
--- NOTE | 2022-12-16 15:44 | Hospitalist Progress Note ---
Date of Service December 16, 2022 Assessment & Plan (1) Acute respiratory failure with hypoxia: Plan: Secondary to known diffuse pulmonary metastatic disease, COPD, cannot rule out superimposed pneumonia Remains on 4 L nasal cannula Continue with antibiotics -Wean off oxygen as able to -Check viral respiratory panel (2) Rash: Plan: On palms and soles of feet since 12/15 as per patient With associated fever and some loose stools Question of as jhuj-dacw-ifh-mouth disease although no oral lesions visualized at this time This could be the source of his fever Doubt this is an allergic reaction Continue to follow (3) Sepsis: Plan: With fever, tachycardia, and source of either pneumonia versus viral infection as above, possible bacteremia. Does have a port in place and is on chemotherapy -Continue to monitor blood cultures-no growth to date -Checking viral respiratory bio fire panel -Received IV fluids which have now been stopped -Continue broad-spectrum antibiotics with IV cefepime and vancomycin, but if cultures remain negative and remains afebrile and no longer neutropenic, can likely stop antibiotics tomorrow (4) Antineoplastic chemotherapy induced pancytopenia: Plan: Mildly reduced counts Secondary to chemotherapy Also with a history of cirrhosis contributing -Follow CBC in the morning (5) Metastatic colon cancer to liver: Plan: Currently undergoing chemotherapy With metastatic disease to the liver and lungs (6) Cirrhosis of liver: Plan: Noted, presumed secondary to history of hepatitis C Continue lactulose (7) Elevated troponin: Plan: Minimally elevated on admission and trended downward to normal Myocardial demand ischemia in the setting of sepsis No further work-up needed No ischemic changes on ECG (8) COPD (chronic obstructive pulmonary disease): Plan: Continue supplemental O2 as needed Add on albuterol 3 times daily scheduled (9) Hypothyroidism: Plan: Continue home levothyroxine TSH here is normal at 4.1 (10) Hypertension: Plan: Blood pressures are fairly well controlled Continue carvedilol, diltiazem, enalapril Plan DVT prophylaxis-heparin SQ Disposition-continued stay Admission and Anticipated Discharge Date Admission Date: December 15, 2022 Subjective Patient feeling better today. Has noticed a rash on his hands and feet. No sores in the mouth. Still with mild cough. No abdominal pain. Has had a couple of loose stools. No further fevers Telemetry with normal sinus rhythm with rates in the 60s to 70s Physical Exam Constitutional: WD/WN, vitals as above Eyes: + anicteric sclerae Respiratory: normal respiratory effort and + cough Auscultation: + crackles (Bilateral lower and middle lung fuentes) Cardiovascular: Rate/Rhythm: regular rate and regular rhythm Heart Sounds: no murmur Gastrointestinal (Abdomen): normal bowel sounds, soft, nontender, no hepatosplenomegaly Skin: Erythematous macular rash on palms and soles of feet only, no lesions or sores in the mouth or lips No vesicles Results & Data Results & Data Vital Signs (Past 12 Hours) Vital Signs Temp Pulse Resp BP Pulse Ox O2 Del Method O2 Flow Rate 12/16/22 15:24 37.1 C 73 18 138/66 94 Nasal Cannula 4 12/16/22 11:37 37.0 C 70 20 115/76 95 Nasal Cannula 4 12/16/22 08:00 Nasal Cannula 4 12/16/22 07:47 36.4 C L 61 18 118/60 94 Nasal Cannula 4 Laboratory Results CBC, BMP, LFTs, magnesium level reviewed PG Care Time/CCT Total # of Minutes Spent Total Time Spent with Patient: Total time spent is greater than 50% in coordination of care (as documented) at patient's floor/unit and/or counseling patient: Coding Level of Care Code 64820 SUB INP/OBS CARE 3/50MIN Diagnoses Acute respiratory failure with hypoxia J96.01 Rash R21 Sepsis A41.9 Antineoplastic chemotherapy induced pancytopenia D61.810; T45.1X5A Metastatic colon cancer to liver C18.9; C78.7 Cirrhosis of liver K74.60 Elevated troponin R77.8 COPD (chronic obstructive pulmonary disease) J44.9 Hypothyroidism E03.9 Hypertension I10
[2022-12-17] MEDS: CEFEPIME 2,000 MG in SYRINGE 0 ML IV SCH (00:33)
[2022-12-17] MEDS: ALBUTEROL HFA 8 GM INHALER INH SCH ×3 (01:07→13:27)
[2022-12-17 02:08] LABS: Adenovirus PCR Not Detected (NotDetected); Bordetella parapertussis PCR Not Detected (NotDetected); Bordetella pertussis PCR Not Detected (NotDetected); Chlamydia pneumoniae PCR Not Detected (NotDetected); Coronavirus 229E PCR Not Detected (NotDetected); Coronavirus CoV-2 (COVID19)PCR Not Detected (NotDetected); Coronavirus HKU1 PCR Not Detected (NotDetected); Coronavirus NL63 PCR Not Detected (NotDetected); Coronavirus OC43PCR Not Detected (NotDetected); Human Metapneumovirus PCR Not Detected (NotDetected); Influenza A PCR Not Detected (NotDetected); Influenza B PCR Not Detected (NotDetected); Mycoplasma pneumoniae PCR Not Detected (NotDetected); Parainfluenza Virus 1 PCR Not Detected (NotDetected); Parainfluenza Virus 2 PCR Not Detected (NotDetected); Parainfluenza Virus 3 PCR Not Detected (NotDetected); Parainfluenza Virus 4 PCR Not Detected (NotDetected); Respiratory Syncytial VirusPCR Not Detected (NotDetected); Rhinovirus/Enterovirus PCR Not Detected (NotDetected)
[2022-12-17] MEDS: LEVOTHYROXINE SODIUM 25 MCG TABLET PO SCH (05:47)
[2022-12-17 06:07] LABS: Basophils # (auto) 0.01 K/uL (0-0.2); Basophils % (auto) 0.3 %; Eosinophils # (auto) 0.12 K/uL (0-0.50); Hematocrit (blood only) 29.5 % (42.0-52.0); Hemoglobin 10.2 g/dl (14.0-18.0); Immature Granulocytes # (auto) 0.02 K/uL (0.01-0.20); Immature Granulocytes % (auto) 0.7 %; Lymphocytes # (auto) 0.28 K/uL (1.2-3.4); Lymphocytes % (auto) 9.4 %; Mean Corpuscular Hemoglobin 31.2 pg (25.0-34.0); Mean Corpuscular Hgb Conc 34.6 g/dL (32.0-36.0); Mean Corpuscular Volume 90.2 fL (80.0-100.0); Mean Platelet Volume 10.1 fL (9.4-12.4); Monocytes # (auto) 0.33 K/uL (0.11-0.59); Monocytes % (auto) 11.1 %; Neutrophils # (auto) 2.22 K/uL (1.40-6.50); Neutrophils % (auto) 74.5 %; Platelet Count 75 K/uL (130-400); RDW Coefficient of Variation 14.3 % (11.5-14.5); RDW Standard Deviation 47.8 fL (36.4-46.3); Red Blood Count 3.27 M/uL (4.70-6.10); White Blood Count 2.98 K/ul (4.8-10.8)
[2022-12-17 06:24] LABS: Albumin Globulin Ratio 1.6 (0.9-2); Albumin Level 2.9 gm/dl (3.4-5.0); BUN Creatinine Ratio 37.5 (10-20); Bilirubin,Total 0.8 mg/dl (0.2-1.0); Calcium 8.1 mg/dl (8.6-10.3); Creatinine Clr Calc Pharmacy 119.3 ml/min; Est GFR (African American) 114.8 ml/min; Est GFR (Non-African American) 99.1 ml/min; Globulin 1.8 gm/dl (2.5-4.0); Magnesium 1.6 mg/dl (1.7-2.4); Phosphorus 2.2 mg/dl (2.5-4.9); Potassium 3.7 mmol/L (3.5-5.1); Total Protein 4.7 gm/dl (6.0-8.3)
[2022-12-17] MEDS ORDERED: CEFEPIME 2,000 MG in SYRINGE 0 ML IV ONE (09:00)
[2022-12-17] MEDS ORDERED: POTASSIUM PHOS 3 MMOL/1 ML INFUSION IV STA (09:12)
[2022-12-17] MEDS: dilTIAZem HCL 240 MG CAPCR PO SCH (09:20)
[2022-12-17] MEDS: HEPARIN SOD 5,000 UNIT/0.5 ML VIAL SQ SCH (09:20)
[2022-12-17] MEDS: LACTULOSE SYRUP 20 GM/30 ML UDC PO SCH (09:21)
[2022-12-17] MEDS: FERROUS GLUCONATE 324 MG TAB PO SCH (09:21)
[2022-12-17] MEDS: ENALAPRIL MALEATE 10 MG TAB PO SCH (09:21)
[2022-12-17] MEDS: ASCORBIC ACID 500 MG TAB PO SCH (09:22)
[2022-12-17] MEDS: carvediloL 3.125 MG TAB PO SCH (09:22)
[2022-12-17] MEDS ORDERED: POTASSIUM PHOSPHATE 15 MMOL in SODIUM CHLORIDE 0.9% 250 ML IV ONE (10:00)
[2022-12-17] MEDS: MAGNESIUM SULFATE / D5W 1 GM/100 ML BAG IV SCH ×2 (10:06→12:07)
--- NOTE | 2022-12-17 12:45 | Discharge Summary ---
Date of Service December 17, 2022 Admission HPI Per Admitting Provider Mario is a 77-year-old male patient from [facility] with a past medical history of metastatic colon cancer with liver mets, and cirrhosis of the liver, who presented to the ER with a fever. Patient has a history of colorectal cancer and underwent chemotherapy at 5 PM yesterday. Patient was apparently short of breath and confused and had a significant cough. O2 saturations were in the 80s. Temperature high as 102.2. He was transported here for evaluation. In the emergency room, temperature elevated at 39 C. CBC revealed pancytopenia. Procalcitonin of 2.4. Respiratory screen negative. EKG showed NSR at [address] elevations or other signs of ischemia. He received a 2 L bolus of normal saline, and was given IV Zosyn and vancomycin empirically. On admission, continues to endorse fatigue cough but reports improvement with shortness of breath. Principal Diagnosis Febrile illness, likely viral syndrome, possible pneumonia Rash Antineoplastic induced pancytopenia Discharge Exam Constitutional WD/WN, vitals as above Eyes + anicteric sclerae ENMT No lesions or sores on the lips or mouth Respiratory normal respiratory effort Auscultation: + crackles (Bilateral lower and middle lung fuentes); no rhonchi and no wheezes Cardiovascular Rate/Rhythm: regular rate and regular rhythm Heart Sounds: no murmur Gastrointestinal (Abdomen) normal bowel sounds, soft, nontender, no hepatosplenomegaly Skin Erythematous macular rash on palms and soles of feet, no rashes anywhere else Neurologic no focal motor deficits and not confused Discharge Data Allergies Allergy/AdvReac Type Severity Reaction Status Date / Time nitrofurantoin Allergy LISTED ON Verified 06/30/22 14:25 [From Macrobid] MEDICAL RECORD sodium chloride Allergy LISTED ON Verified 06/30/22 14:25 [From Mineral Nasal] MEDICAL RECORD Consultations 12/15/22 04:52 ED Decision to Admit Stat Ordered Studies 12/15/22 04:59 CT chest diagnostic w con Urgent Hospital Course (1) Acute respiratory failure with hypoxia: Secondary to known diffuse pulmonary metastatic disease, COPD, cannot rule out superimposed pneumonia Viral respiratory bio fire PCR panel all negative Cough is improved, not short of breath Remains on 4 L nasal cannula and should continue this after discharge Finish out 3 more day course of levofloxacin in case of superimposed pneumonia -Wean off oxygen as able to at the present but likely not able to given diffuse pulmonary metastases (2) Rash: On palms and soles of feet since 12/15 as per patient With associated fever and some loose stools which are now resolved Question of as uikx-cvjs-oix-mouth disease although no oral lesions visualized at this time This could be the source of his fever Doubt this is an allergic reaction Continue to follow after discharge-discussed with physician from custodial Self-limiting (3) Sepsis: With fever, tachycardia, and source of either pneumonia versus viral infection as above. Bacteremia has now been ruled out with negative blood cultures over 48 hours at the time of discharge. Does have a port in place and is on chemotherapy -Continue to monitor blood cultures after discharge-no growth to date - viral respiratory bio fire panel is negative -Received IV fluids which have now been stopped -Received as broad-spectrum antibiotics with IV cefepime and vancomycin, but as cultures remain negative and remains afebrile and not neutropenic, would simply finish out 3 more days of levofloxacin empirically (4) Antineoplastic chemotherapy induced pancytopenia: Mildly reduced counts with hemoglobin 10.2, platelets 75, WBC 2.9 with ANC 2200 on the day of discharge Secondary to chemotherapy Also with a history of cirrhosis contributing -Follow CBC with oncology in 1 week -Transfusional support as needed with oncology (5) Metastatic colon cancer to liver: Currently undergoing chemotherapy With metastatic disease to the liver and lungs (6) Cirrhosis of liver: Noted, presumed secondary to history of hepatitis C Continue lactulose (7) Elevated troponin: Minimally elevated on admission and trended downward to normal Myocardial demand ischemia in the setting of sepsis No further work-up needed No ischemic changes on ECG (8) COPD (chronic obstructive pulmonary disease): Continue supplemental O2 as needed Continue on albuterol 3 times daily scheduled (9) Hypothyroidism: Continue home levothyroxine TSH here is normal at 4.1 (10) Hypertension: Blood pressures are fairly well controlled Continue carvedilol, diltiazem, enalapril Plan DVT prophylaxis-heparin SQ Disposition-stable for discharge to the custodial. Discussed his care with the custodial physician on the day of discharge Total Time Total Time Spent Total Time Spent (In Minutes): 40 minutes Discharge Plan Discharge Items [facility]position[facility] Reason For Visit: FEVER, SOB, ALTERED MENTAL STATUS Discharge Diagnosis: Fever, suspected viral syndrome, possible pneumonia/bronchitis Antineoplastic-induced chemotherapy Acute respiratory failure with hypoxia Condition on Discharge: Fair Activity: Resume your previous activity Non-emergency contact: Primary Care Provider and Oncologist Call non-emergency contact if: you have any medication questions, your symptoms worsen, you have a fever and your temperature is above 101 Follow-up/Referrals: Marsha BLANCHARD [Primary Care Provider] - Diet: Regular Addtl Attending Provider Instructions: Please take Levaquin for 3 more days as an antibiotic in case of pneumonia. Most likely this was a viral syndrome given the rash on your hands and feet, but that rash could possibly be some sort of reaction to your chemotherapy. Your blood counts are low from your chemotherapy and should be followed by your oncologist. You should remain on 4L nasal cannula. Pending Studies at Discharge: Yes Studies:: Final blood cultures-no growth to date Stand-Alone Forms: My [facility] Skilled Items Patient informed of condition?: Yes Discharge Level of Care: Other Communicable Disease: No Discharge Prognosis: Improving Lines: None Urinary Catheter: No Medications and DC Order Prescriptions: New albuterol sulfate [Ventolin HFA] 90 mcg/actuation Hfa Aerosol Inhaler 2 puff inhalation TIDR PRN (Reason: shortness of breath or wheezing) Qty: 8.5 0RF levofloxacin 750 mg tablet 750 mg PO DAILY Qty: 3 0RF Continued ascorbic acid (vitamin C) 500 mg tablet 500 mg PO DAILY ferrous gluconate 324 mg (38 mg iron) tablet 324 mg PO DAILY lactulose 10 gram/15 mL Solution 20 g PO BID tamsulosin 0.4 mg Capsule 0.4 mg PO DAILY enalapril maleate 10 mg Tablet 10 mg PO QAM diltiazem HCl 240 mg Capsule,Extended Release 24 Hr 240 mg PO DAILY carvedilol 3.125 mg Tablet 3.125 mg PO BID levothyroxine 25 mcg Tablet 25 mcg PO QAM Discharge Orders: Discharge Order (Routine); Ordered 12/17/22 Ordered By: Nika Rebolledo Admission Data Admit Date/Time: 12/15/22 05:31 Attending Provider: Nika Rebolledo Admit Provider: Eddie Skelton Primary Care Provider: Marsha BLANCHARD Other Providers: Sean Mierles Other Interventions: Discharge Summary Assessment (RN) Last Done: 12/17/22 13:38 Coding Level of Care Code 06894 INP/OBS DISCH >30 MIN Diagnoses Acute respiratory failure with hypoxia J96.01 Rash R21 Sepsis A41.9 Antineoplastic chemotherapy induced pancytopenia D61.810; T45.1X5A Metastatic colon cancer to liver C18.9; C78.7 Cirrhosis of liver K74.60 Elevated troponin R77.8 COPD (chronic obstructive pulmonary disease) J44.9 Hypothyroidism E03.9 Hypertension I10
--- NOTE | 2022-12-18 02:12 | Billing Data ---
Date of Service December 18, 2022 Coding Level of Care Code 04394 INT INP/OBS CARE
--- NOTE | 2022-12-18 06:16 | Electrocardiogram Report ---
Test Reason : Blood Pressure : / mmHG Vent. Rate : 080 BPM Atrial Rate : 080 BPM P-R Int : 176 ms QRS Dur : 106 ms QT Int : 390 ms P-R-T Axes : 044 -24 027 degrees QTc Int : 449 ms Normal sinus rhythm Incomplete right bundle branch block Borderline ECG When compared with ECG of 15-DEC-2022 02:08, Incomplete right bundle branch block has replaced Non-specific intra-ventricular conduction block Confirmed by Keegan العراقي ([id number]) on 12/18/2022 6:16:28 AM Referred By: [facility] Confirmed By:Keegan العراقي
== END 2022-12-17 15:23 | DRG 871 ==
LOC: ED 01:49 → 2S 05:31 → SUATTDRO 05:31 → 2S 06:30

== ENCOUNTER 2023-02-20 16:10 | Inpatient (IN) ==
[2023-02-20] MEDS ORDERED: ONDANSETRON INJ 2 MG/ML 2 ML VIAL IV STA (16:35)
[2023-02-20] MEDS ORDERED: MoRPHine SULFATE 4 MG/ML 1 ML CARP\\VIAL IV STA (16:35)
[2023-02-20] MEDS ORDERED: SODIUM CHLORIDE 0.9% 1000ML 1,000 ML IV STA (16:35)
--- NOTE | 2023-02-20 16:37 | Emergency Department Note ---
Impression & Plan Cecum perforation, Abdominal pain, Intra-abdominal abscess ED Provider Note HISTORY OF PRESENT ILLNESS: Patient is a 77-year-old male presenting with abdominal pain and abdominal di stention. Patient reports he has had progressively worsening abdominal pain over the last 3 weeks and his abdomen has been more more distended. He reports significant decrease in his appetite and multiple episodes of nausea but no vomiting. He reports decreased stool output and reports that when he does have a bowel movement it is a "yellow mustard consistency." Denies any chest pain but does report some increasing shortness of breath. Denies any DVT or PE history. ROS: as above PHYSICAL EXAM: Constitutional: Patient appears in no acute distress. HENT: Head: Normocephalic and atraumatic. Eyes: EOMI, PERRL Mouth/Throat: Mucous membranes moist. Neck: Trachea midline. Neck supple. Cardiovascular: RRR, No murmurs, rubs or gallops. Intact distal pulses. Pulmonary/Chest: No respiratory distress. Breath sounds clear and equal bilaterally. No wheezes or rales. Abdominal: BS +. Abdomen soft. Generalized tenderness to palpation with guarding Musculoskeletal: No edema, tenderness or deformity noted. Skin: Warm and dry. No rash, erythema, pallor or cyanosis Psychiatric: Appropriate mood and affect for situation. Neurological: Alert and keenly responsive. CN II-XII grossly intact, moving all extremities equally and fully. MDM: - Vitals signs stable. - History obtained via patient. Patient presents with abdominal pain and abdominal distention. Patient reports progressively worsening abdominal pain over the last 3 weeks and progressively worsening distention. Reports significant decrease in appetite and multiple episodes of nausea but no vomiting. Has had decreased stool output. Denies any DVT or PE history. Reports some increasing shortness of breath over the last few weeks. - Chronic conditions affecting care: colon cancer; HTN; HLD; hypothyroidism; thrombocytopenia; COPD; cirrhosis of liver - Differential diagnoses include, but are not limited to: Perforated viscus; small bowel obstruction; diverticulitis - Order placed for continuous cardiac monitoring. At this time, monitor showed rate of 85 bpm with normal sinus rhythm, per my interpretation. - External medical records reviewed. Patient has a history of metastatic cecal cancer. - Patient given 1L NS, 4 mg IV zofran and 4 mg IV morphine for symptomatic management in ER. - Laboratory workup interpreted by myself showed normal WBC; thrombocytopenia (plt 82); normal lactate; slight hyponatremia (Na 134); hypocalcemia (Ca 8.1); elevated total bilirubin (2.3) - CT abdomen/pelvis with IV contrast showed large cecal mass. There is also evidence of cecal perforation, with a notable large volume of extraluminal stool and abscess at the base of the cecum. Also noted to have intraperitoneal free air and ascites, concerning for peritonitis. Also noted to have a large gas containing collection in the left lobe of the liver concerning for hepatic abscess. - Patient given IV zosyn for antibiotic coverage. - Discussed case with surgeon, Dr. Banks. He plans to see patient. Requests medicine admission. Dr. 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 - Hospitalist, Dr. Sandhu, consulted for admission. - Patient admitted to [facility] for further evaluation and management after emergent operative interventions ASSESSMENT AND PLAN: Diagnosis: Abdominal pain; cecal perforation; intra-abdominal abscess Plan: to OR and then admission Past Med/Surg History Medical History Cirrhosis of liver Colon cancer Constipation COPD (chronic obstructive pulmonary disease) Esophageal varices without bleeding HCV (hepatitis C virus) Hearing loss Hyperlipidemia Hypertension Hypothyroidism Inmate in correctional facility Low back pain Malignant neoplasm Thrombocytopenia Surgical History History of cataract surgery Family History Other Unknown family medical history Social History Smoking Status: Former smoker Second Hand Exposure: No; Do You Dip or Chew Tobacco: No; Hx Alcohol Use: No Hx Substance Use: No Preferred Language: Serbian Communication Ability: Effective Case Assembler Required: No Beliefs That Will Affect Care: None Current Living Situation: Other Current Living Situation Comment: retirement Feels Safe at Home: Yes Assistive Devices: Denture - Upper, Denture - Lower and Glasses Allergies Allergies Allergy/AdvReac Type Severity Reaction Status Date / Time nitrofurantoin Allergy Unknown LISTED ON Verified 02/20/23 18:25 [From [employer]] MEDICAL RECORD sodium chloride Allergy Unknown CONTRAINDICATED Verified 02/20/23 18:25 [From [facility]] MEDICATION Home Meds Home Medications Medication Instructions Recorded Confirmed carvedilol 3.125 mg tablet 3.125 mg PO BID 04/13/21 02/20/23 diltiazem HCl 240 mg capsule,24 240 mg PO DAILY 04/13/21 02/20/23 hr,extended release lactulose 10 gram/15 mL oral 20 g PO BID 06/30/22 02/20/23 solution tamsulosin 0.4 mg capsule 0.4 mg PO DAILY 06/30/22 02/20/23 ascorbic acid (vitamin C) 500 mg 500 mg PO DAILY 08/06/22 02/20/23 tablet ferrous gluconate 324 mg (38 mg 324 mg PO DAILY 08/06/22 02/20/23 iron) tablet food supplemt, lactose-reduced 1 ea PO BID 02/20/23 02/20/23 (Ensure oral liquid) levothyroxine 50 mcg tablet 50 mcg PO DAILYBB 02/20/23 02/20/23 polyethylene glycol 3350 17 17 g PO DAILY 02/20/23 02/20/23 gram/dose oral powder (Miralax) vitamin E 1 applic topical BID 02/20/23 02/20/23 Previous Rx's Medication Instructions Recorded albuterol sulfate 90 mcg/actuation 2 puff inhalation TIDR PRN 12/17/22 aerosol inhaler (Ventolin HFA) shortness of breath or wheezing #8.5 grams Results & Data (ED) Vital Signs Vital Signs - 24 hr 02/20/23 16:27 02/20/23 16:38 02/20/23 16:41 Temperature 37.2 C Temperature Source Oral Pulse Rate 83 84 Pulse Rate [Apical] Pulse Rhythm [Apical] Respiratory Rate 18 Respiratory Effort / Characteristics Non-Labored Spontaneous Respiratory Depth Normal Respiratory Pattern Regular Blood Pressure 131/58 L Blood Pressure [Right Arm] Blood Pressure Mean 82 Blood Pressure Mean [Right Arm] Blood Pressure Position Lying Blood Pressure Position [Right Arm] Pulse Oximetry 92 92 Oxygen Delivery Method Room Air Room Air Sepsis Recent Fever Within 48 Hours No Sepsis New/Unexplained Change in Mental Status No Sepsis Action Taken by Nursing No Action Required 02/20/23 18:44 02/20/23 16:21 02/20/23 19:00 Temperature Temperature Source Pulse Rate 82 83 Pulse Rate [Apical] 83 Pulse Rhythm [Apical] Regular Respiratory Rate 18 25 H 20 Respiratory Effort / Characteristics Non-Labored Spontaneous Respiratory Depth Normal Respiratory Pattern Regular Blood Pressure 131/58 L 128/63 Blood Pressure [Right Arm] 129/63 Blood Pressure Mean 82 84 Blood Pressure Mean [Right Arm] 85 Blood Pressure Position Blood Pressure Position [Right Arm] Lying Pulse Oximetry 90 93 90 Oxygen Delivery Method Room Air Room Air Room Air Sepsis Recent Fever Within 48 Hours Sepsis New/Unexplained Change in Mental Status Sepsis Action Taken by Nursing Laboratory Data 02/20/23 16:20 02/20/23 16:20 Lab Results 02/20/23 02/20/23 02/20/23 Range/Units 16:20 16:20 16:49 WBC 5.93 (4.8-10.8) K/ul RBC 3.71 L (4.70-6.10) M/uL Hgb 11.3 L (14.0-18.0) g/dl Hct 32.5 L (42.0-52.0) % MCV 87.6 (80.0-100.0) fL MCH 30.5 (25.0-34.0) pg MCHC 34.8 (32.0-36.0) g/dL RDW Std Deviation 42.1 (36.4-46.3) fL RDW Coeff of Jessica 13.1 (11.5-14.5) % Plt Count 82 L (130-400) K/uL MPV 10.8 (9.4-12.4) fL Immature Gran % (Auto) 0.8 % Neut % (Auto) 87.1 % Lymph % (Auto) 5.7 % Pickett % (Auto) 6.2 % Eos % (Auto) 0.0 % Baso % (Auto) 0.2 % Neut # (Auto) 5.16 (1.40-6.50) K/uL Lymph # (Auto) 0.34 L (1.2-3.4) K/uL Pickett # (Auto) 0.37 (0.11-0.59) K/uL Eos # (Auto) 0.00 (0-0.50) K/uL Baso # (Auto) 0.01 (0-0.2) K/uL Immature Gran # (Auto) 0.05 (0.01-0.20) K/uL Sodium 134 L (136-145) mmol/L Potassium 3.7 (3.5-5.1) mmol/L Chloride 104 (98-107) mmol/L Carbon Dioxide 21 (21-32) mmol/L Anion Gap 9 (3-11) BUN 30 H (6-23) mg/dl Creatinine 0.60 (0.6-1.4) mg/dl Est Cr Clr Drug Dosing 108.6 ml/min Est GFR ( Amer) 111.6 ml/min Est GFR (Non-Af Amer) 96.3 ml/min BUN/Creatinine Ratio 50.0 H (10-20) Glucose 111 H (70-99(Fasting)) mg/dl Lactate 1.5 (0.4-2.0) mmol/L Calcium 8.1 L (8.6-10.3) mg/dl Total Bilirubin 2.3 H (0.2-1.0) mg/dl AST 85 H (13-39) U/L ALT 39 (7-52) U/L Alkaline Phosphatase 195 H (34-104) U/L Troponin I High Sens 14.1 (0-20) pg/ml Total Protein 5.2 L (6.0-8.3) gm/dl Albumin 2.7 L (3.4-5.0) gm/dl Globulin 2.5 (2.5-4.0) gm/dl Albumin/Globulin Ratio 1.1 (0.9-2) Lipase < 3 L (11-82) U/L SARS-CoV-2, RNA, NAAT (NEGATIVE) 02/20/23 Range/Units 19:15 WBC (4.8-10.8) K/ul RBC (4.70-6.10) M/uL Hgb (14.0-18.0) g/dl Hct (42.0-52.0) % MCV (80.0-100.0) fL MCH (25.0-34.0) pg MCHC (32.0-36.0) g/dL RDW Std Deviation (36.4-46.3) fL RDW Coeff of Jessica (11.5-14.5) % Plt Count (130-400) K/uL MPV (9.4-12.4) fL Immature Gran % (Auto) % Neut % (Auto) % Lymph % (Auto) % Pickett % (Auto) % Eos % (Auto) % Baso % (Auto) % Neut # (Auto) (1.40-6.50) K/uL Lymph # (Auto) (1.2-3.4) K/uL Pickett # (Auto) (0.11-0.59) K/uL Eos # (Auto) (0-0.50) K/uL Baso # (Auto) (0-0.2) K/uL Immature Gran # (Auto) (0.01-0.20) K/uL Sodium (136-145) mmol/L Potassium (3.5-5.1) mmol/L Chloride (98-107) mmol/L Carbon Dioxide (21-32) mmol/L Anion Gap (3-11) BUN (6-23) mg/dl Creatinine (0.6-1.4) mg/dl Est Cr Clr Drug Dosing ml/min Est GFR ( Amer) ml/min Est GFR (Non-Af Amer) ml/min BUN/Creatinine Ratio (10-20) Glucose (70-99(Fasting)) mg/dl Lactate (0.4-2.0) mmol/L Calcium (8.6-10.3) mg/dl Total Bilirubin (0.2-1.0) mg/dl AST (13-39) U/L ALT (7-52) U/L Alkaline Phosphatase (34-104) U/L Troponin I High Sens (0-20) pg/ml Total Protein (6.0-8.3) gm/dl Albumin (3.4-5.0) gm/dl Globulin (2.5-4.0) gm/dl Albumin/Globulin Ratio (0.9-2) Lipase (11-82) U/L SARS-CoV-2, RNA, NAAT NEGATIVE (NEGATIVE) Administered Medications Lactated Ringer's (Lr) 1,000 mls @ 150 mls/hr IV .Q6H40M CHARLETTE Stop: 03/22/23 19:44 Last Admin: 02/20/23 19:55 Dose: 150 mls/hr Documented By: MONIQUE Discontinued Medications Sodium Chloride (Nss 1000ml) 1,000 mls @ 999 mls/hr IV .Q1H1M STA Stop: 02/20/23 17:35 Last Infusion: 02/20/23 18:08 Dose: 0 mls/hr Documented By: Admin: 02/20/23 16:46 Dose: 999 mls/hr Documented By: JUWAN Piperacillin Sod/Tazobactam Sod (Zosyn) 4.5 gm in 120 mls @ 240 mls/hr IV NOW ONE Stop: 02/20/23 19:19 Last Infusion: 02/20/23 19:46 Dose: 0 mls/hr Documented By: Admin: 02/20/23 19:10 Dose: 240 mls/hr Documented By: MONIQUE Ioversol (Optiray 320 100ml) 92 ml IV ONCE ONE Stop: 02/20/23 17:45 Last Admin: 02/20/23 17:44 Dose: 92 ml Documented By: BEVERLY Morphine Sulfate (Morphine Sulfate 4 Mg/Ml 1 Ml Carp\\Vial) 4 mg IV NOW STA Stop: 02/20/23 16:36 Last Admin: 02/20/23 16:46 Dose: 4 mg Documented By: JUWAN Ondansetron HCl (Ondansetron Inj 2 Mg/Ml 2 Ml Vial) 4 mg IV NOW STA Stop: 02/20/23 16:36 Last Admin: 02/20/23 16:46 Dose: 4 mg Documented By: JUWAN Imaging Data Radiologist's Impression: Abdomen/Pelvis CT 02/20/23 16:35 CT SCAN OF THE ABDOMEN AND PELVIS WITH IV CONTRAST CLINICAL HISTORY: Generalized abdominal pain. COMPARISON STUDY: Abdominal CT dated 04/23/2022. TECHNIQUE: Following the IV administration of 92 cc of Optiray 320, CT scan of the abdomen and pelvis is performed from the lung bases to the proximal femora. Images are reviewed in the axial, sagittal, and coronal planes. IV contrast was administered without complication. A dose lowering technique was utilized adhering to the principles of ALARA. CT DOSE: 973.54 mGy.cm FINDINGS: Lung bases: The heart is top normal in size and without pericardial effusion. There are small left and trace right pleural effusions. Extensive/multifocal pulmonary metastatic disease is seen throughout both lung bases. The largest nodule is seen at the left lung base on image #23 measures 15 mm. Intralobular septal thickening is seen at both lung bases and suggest fluid overload. There are esophageal varices. Liver: The contrast-enhanced liver is cirrhotic in morphology and heterogeneous in attenuation. There is hypertrophy of the left lobe and nodularity of the surface contour. There is no intrahepatic biliary ductal dilatation. The hepatic veins and portal veins are patent. There is evidence of multifocal hepatic metastatic disease. The largest lesion is seen in the right lobe on image #71 and measures 2.6 cm. A large pocket of gas is seen within the left lobe of the liver on image #95 an measures up to 4.6 cm. Gallbladder: Unremarkable. Spleen: The spleen is markedly enlarged measuring 19.2 cm in length. There are perigastric and perisplenic varices. Pancreas: Unremarkable. Adrenal glands: Left adrenal metastases are new from previous. These measure up to 1.9 cm. The right adrenal gland is normal in appearance. Kidneys: The contrast enhanced kidneys are normal in size and without hydronephrosis. The kidneys enhance symmetrically. There is a 3 mm nonobstructing left renal calculus. A 3.7 cm exophytic cyst is again seen arising from the left lower pole. Additional scattered subcentimeter cortical hypodensities likely represents cysts but too small for definitive characterization. Abdominal vasculature: The abdominal aorta is normal in course and caliber noting advanced atherosclerotic calcification. Bowel: There is no bowel obstruction. A large mass lesion is again seen at the base of the cecum. There is evidence of colonic perforation. A large pocket of extraluminal stool is seen between the cecum and bladder on axial image #278. This measures 7.5 x 6.5 cm. Wall thickening of the left colon is likely related to adjacent inflammation. Peritoneum: Intraperitoneal free air is seen below the diaphragm (axial image #75). There is a small volume of perihepatic ascites. This ascitic fluid is also seen in the right paracolic gutter extending into the pelvis. There is trace free fluid tracking along the mesentery. Lymphadenopathy: There is metastatic retroperitoneal lymphadenopathy. A left periaortic shahzad aggregate on image #179 and measures 2.2 x 1.6 cm. A left iliac chain node on image #221 measures 1.7 x 1.1 cm. Pelvic viscera: The prostate gland is mildly enlarged and heterogeneous. Asymmetric bladder wall thickening is seen superiorly on the right. This is likely secondary to adjacent inflammation/abscess. Skeletal structures: The skeletal structures are osteopenic. There is a large osteoblastic metastasis within the right iliac wing is seen on image #277 with associated periostitis. There is also a lesion within the left sacral ala on image #231. Soft tissues: The patient is cachectic. IMPRESSION: 1. Again seen is a large mass lesion at the base of the cecum, likely representing a colonic neoplasm. 2. There is evidence of cecal perforation, with a large volume of extraluminal stool/abscess between the base of the cecum and the bladder. 3. There is intraperitoneal free air, abdominopelvic ascites, and evidence of peritonitis. 4. There is evidence of extensive/multifocal metastatic disease. 5. There is extensive pulmonary metastatic disease, multifocal hepatic metastatic disease, left adrenal metastases, metastatic retroperitoneal and julissa ac chain lymphadenopathy, and osteoblastic metastatic disease. 6. Asymmetric right-sided bladder wall thickening is likely related to adjacent stool/inflammation. 7. Small left and trace right pleural effusions. 8. There is a 4.6 cm largely gas-containing collection in the left lobe of the liver. Hepatic abscess is not excluded. 9. Cirrhotic liver morphology. 10. Marked splenomegaly, esophageal varices, and upper abdominal varices indicate portal hypertension. 11. Left-sided nephrolithiasis. 12. Additional findings above. ACT 112: Negative or not required by law. Electronically signed by: Valente Lynn M.D. 02/20/2023 6:39 PM Discharge Plan Visit Data Chief Complaint: Abdominal Pain ED Provider: Yudelka Chen Discharge Problem: Cecum perforation, Abdominal pain, Intra-abdominal abscess Patient Disposition: Admitted As Inpatient Forms Stand Alone Forms: [facility] Prescriptions Prescriptions: No Action ascorbic acid (vitamin C) 500 mg tablet 500 mg PO DAILY ferrous gluconate 324 mg (38 mg iron) tablet 324 mg PO DAILY lactulose 10 gram/15 mL Solution 20 g PO BID tamsulosin 0.4 mg Capsule 0.4 mg PO DAILY vitamin E [Vitamin E Moisture] Cream 1 applic TOPICAL BID levothyroxine 50 mcg Tablet 50 mcg PO DAILYBB polyethylene glycol 3350 [Miralax] 17 gram/dose Powder 17 g PO DAILY Ensure Liquid 1 ea PO BID diltiazem HCl 240 mg Capsule,Extended Release 24 Hr 240 mg PO DAILY carvedilol 3.125 mg Tablet 3.125 mg PO BID albuterol sulfate [Ventolin HFA] 90 mcg/actuation Hfa Aerosol Inhaler 2 puff inhalation TIDR PRN (Reason: shortness of breath or wheezing) Qty: 8.5 0RF Referrals Referrals: Marsha BLANCHARD [Primary Care Provider] -
[2023-02-20 16:50] LABS: Basophils # (auto) 0.01 K/uL (0-0.2); Basophils % (auto) 0.2 %; Hematocrit (blood only) 32.5 % (42.0-52.0); Hemoglobin 11.3 g/dl (14.0-18.0); Immature Granulocytes # (auto) 0.05 K/uL (0.01-0.20); Immature Granulocytes % (auto) 0.8 %; Lymphocytes # (auto) 0.34 K/uL (1.2-3.4); Lymphocytes % (auto) 5.7 %; Mean Corpuscular Hemoglobin 30.5 pg (25.0-34.0); Mean Corpuscular Hgb Conc 34.8 g/dL (32.0-36.0); Mean Corpuscular Volume 87.6 fL (80.0-100.0); Mean Platelet Volume 10.8 fL (9.4-12.4); Monocytes # (auto) 0.37 K/uL (0.11-0.59); Monocytes % (auto) 6.2 %; Neutrophils # (auto) 5.16 K/uL (1.40-6.50); Neutrophils % (auto) 87.1 %; Platelet Count 82 K/uL (130-400); RDW Coefficient of Variation 13.1 % (11.5-14.5); RDW Standard Deviation 42.1 fL (36.4-46.3); Red Blood Count 3.71 M/uL (4.70-6.10); White Blood Count 5.93 K/ul (4.8-10.8)
[2023-02-20 17:06] LABS: Anion Gap 9 (3-11); Blood Urea Nitrogen 30 mg/dl (6-23); Calcium 8.1 mg/dl (8.6-10.3); Carbon Dioxide 21 mmol/L (21-32); Chloride 104 mmol/L (98-107); Creatinine Clr Calc Pharmacy 108.6 ml/min; Est GFR (African American) 111.6 ml/min; Est GFR (Non-African American) 96.3 ml/min; Glucose 111 mg/dl (70-99(Fasting)); Potassium 3.7 mmol/L (3.5-5.1); Sodium 134 mmol/L (136-145)
[2023-02-20 17:12] LABS: Troponin I High Sensitivity 14.1 pg/ml (0-20)
[2023-02-20 17:40] LABS: Alanine Aminotransferase 39 U/L (7-52); Albumin Globulin Ratio 1.1 (0.9-2); Albumin Level 2.7 gm/dl (3.4-5.0); Alkaline Phosphatase 195 U/L (34-104); Aspartate Aminotransferase 85 U/L (13-39); Bilirubin,Total 2.3 mg/dl (0.2-1.0); Globulin 2.5 gm/dl (2.5-4.0); Lipase < 3 U/L (11-82); Total Protein 5.2 gm/dl (6.0-8.3)
[2023-02-20] MEDS ORDERED: OPTIRAY 320 100ml IV ONE (17:44)
--- NOTE | 2023-02-20 18:41 | CT Scan Report ---
CT SCAN OF THE ABDOMEN AND PELVIS WITH IV CONTRAST CLINICAL HISTORY: Generalized abdominal pain. COMPARISON STUDY: Abdominal CT dated 04/23/2022. TECHNIQUE: Following the IV administration of 92 cc of Optiray 320, CT scan of the abdomen and pelvi s is performed from the lung bases to the proximal femora. Images are reviewed in the axial, sagittal , and coronal planes. IV contrast was administered without complication. A dose lowering technique wa s utilized adhering to the principles of ALARA. CT DOSE: 973.54 mGy.cm FINDINGS: Lung bases: The heart is top normal in size and without pericardial effusion. There are small left an d trace right pleural effusions. Extensive/multifocal pulmonary metastatic disease is seen throughout both lung bases. The largest nodule is seen at the left lung base on image #23 measures 15 mm. Intra lobular septal thickening is seen at both lung bases and suggest fluid overload. There are esophageal varices. Liver: The contrast-enhanced liver is cirrhotic in morphology and heterogeneous in attenuation. There is hypertrophy of the left lobe and nodularity of the surface contour. There is no intrahepatic bili shelly ductal dilatation. The hepatic veins and portal veins are patent. There is evidence of multifocal hepatic metastatic disease. The largest lesion is seen in the right lobe on image #71 and measures 2 .6 cm. A large pocket of gas is seen within the left lobe of the liver on image #95 an measures up to 4.6 cm. Gallbladder: Unremarkable. Spleen: The spleen is markedly enlarged measuring 19.2 cm in length. There are perigastric and perisp lenic varices. Pancreas: Unremarkable. Adrenal glands: Left adrenal metastases are new from previous. These measure up to 1.9 cm. The right adrenal gland is normal in appearance. Kidneys: The contrast enhanced kidneys are normal in size and without hydronephrosis. The kidneys enh ance symmetrically. There is a 3 mm nonobstructing left renal calculus. A 3.7 cm exophytic cyst is ag ain seen arising from the left lower pole. Additional scattered subcentimeter cortical hypodensities likely represents cysts but too small for definitive characterization. Abdominal vasculature: The abdominal aorta is normal in course and caliber noting advanced atheroscle rotic calcification. Bowel: There is no bowel obstruction. A large mass lesion is again seen at the base of the cecum. The re is evidence of colonic perforation. A large pocket of extraluminal stool is seen between the cecum and bladder on axial image #278. This measures 7.5 x 6.5 cm. Wall thickening of the left colon is li vikki related to adjacent inflammation. Peritoneum: Intraperitoneal free air is seen below the diaphragm (axial image #75). There is a small volume of perihepatic ascites. This ascitic fluid is also seen in the right paracolic gutter extendin g into the pelvis. There is trace free fluid tracking along the mesentery. Lymphadenopathy: There is metastatic retroperitoneal lymphadenopathy. A left periaortic shahzad aggrega te on image #179 and measures 2.2 x 1.6 cm. A left iliac chain node on image #221 measures 1.7 x 1.1 cm. Pelvic viscera: The prostate gland is mildly enlarged and heterogeneous. Asymmetric bladder wall thic kening is seen superiorly on the right. This is likely secondary to adjacent inflammation/abscess. Skeletal structures: The skeletal structures are osteopenic. There is a large osteoblastic metastasis within the right iliac wing is seen on image #277 with associated periostitis. There is also a lesio n within the left sacral ala on image #231. Soft tissues: The patient is cachectic. IMPRESSION: 1. Again seen is a large mass lesion at the base of the cecum, likely representing a colonic neoplasm . 2. There is evidence of cecal perforation, with a large volume of extraluminal stool/abscess between the base of the cecum and the bladder. 3. There is intraperitoneal free air, abdominopelvic ascites, and evidence of peritonitis. 4. There is evidence of extensive/multifocal metastatic disease. 5. There is extensive pulmonary metastatic disease, multifocal hepatic metastatic disease, left adren al metastases, metastatic retroperitoneal and iliac chain lymphadenopathy, and osteoblastic metastati c disease. 6. Asymmetric right-sided bladder wall thickening is likely related to adjacent stool/inflammation. 7. Small left and trace right pleural effusions. 8. There is a 4.6 cm largely gas-containing collection in the left lobe of the liver. Hepatic abscess is not excluded. 9. Cirrhotic liver morphology. 10. Marked splenomegaly, esophageal varices, and upper abdominal varices indicate portal hypertension . 11. Left-sided nephrolithiasis. 12. Additional findings above. ACT 112: Negative or not required by law. Electronically signed by: Valente Lynn M.D. 02/20/2023 6:39 PM
[2023-02-20] MEDS ORDERED: PIPERACILLIN/TAZOBACTAM 4.5 GM/120 ML BAG IV ONE ×2 (18:50→19:22)
[2023-02-20] MEDS ORDERED: fentaNYL citrate PF 100 MCG/2 ML VIAL ONE (19:38)
--- NOTE | 2023-02-20 19:45 | Anesthesiology Consultation ---
Date of Service February 20, 2023 Assessment & Plan (1) Encounter for pre-operative examination: Chart Review Chart Review: Acceptable Risk for Surgery (emergency procedure) History Surgery Operation Date: 02/20/23 20:00 Proposed Procedures p Exploratory Laparotomy - Hira Banks MD Height/Weight Height: 6 ft Weight: 75.7 kg Allergies Allergy/AdvReac Type Severity Reaction Status Date / Time nitrofurantoin Allergy Unknown LISTED ON Verified 02/20/23 18:25 [From Macrobid] MEDICAL RECORD sodium chloride Allergy Unknown CONTRAINDICATED Verified 02/20/23 18:25 [From [place] Nasal] MEDICATION Medications Home Medications Medication Instructions Recorded Confirmed Last Taken carvedilol 3.125 mg tablet 3.125 mg PO BID 04/13/21 02/20/23 02/12/23 diltiazem HCl 240 mg capsule,24 240 mg PO DAILY 04/13/21 02/20/23 02/04/23 hr,extended release lactulose 10 gram/15 mL oral 20 g PO BID 06/30/22 02/20/23 12/15/22 09:00 solution tamsulosin 0.4 mg capsule 0.4 mg PO DAILY 06/30/22 02/20/23 02/09/23 ascorbic acid (vitamin C) 500 mg 500 mg PO DAILY 08/06/22 02/20/23 12/13/22 tablet ferrous gluconate 324 mg (38 mg 324 mg PO DAILY 08/06/22 02/20/23 12/13/22 iron) tablet albuterol sulfate 90 mcg/actuation 2 puff inhalation TIDR PRN 12/17/22 02/20/23 Unknown aerosol inhaler (Ventolin HFA) shortness of breath or wheezing #8.5 grams food supplemt, lactose-reduced 1 ea PO BID 02/20/23 02/20/23 02/20/23 06:30 (Ensure oral liquid) levothyroxine 50 mcg tablet 50 mcg PO DAILYBB 02/20/23 02/20/23 Unknown polyethylene glycol 3350 17 17 g PO DAILY 02/20/23 02/20/23 Unknown gram/dose oral powder (Miralax) vitamin E 1 applic topical BID 02/20/23 02/20/23 02/07/23 Past Medical History Medical History Cirrhosis of liver Colon cancer Constipation COPD (chronic obstructive pulmonary disease) Esophageal varices without bleeding HCV (hepatitis C virus) Hearing loss Hyperlipidemia Hypertension Hypothyroidism Inmate in correctional facility Low back pain Malignant neoplasm Thrombocytopenia Past Family History Family History Other Unknown family medical history Past Surgical History Surgical History History of cataract surgery Social History Smoking Status: Former smoker tobacco type: cigarettes Do You Dip or Chew Tobacco: No Hx Alcohol Use: No Hx Substance Use: No substance use type: does not use Physical Exam Vital Signs Last Vital Signs Temp 37.2 C 02/20/23 16:27 Pulse 83 02/20/23 19:00 Resp 20 02/20/23 19:00 BP 128/63 02/20/23 19:00 Pulse Ox 90 02/20/23 19:00 O2 Del Method Room Air 02/20/23 19:00 Testing Laboratory Results 02/20/23 16:20 02/20/23 16:20 Electrocardiogram Date: 12/17/22 Findings: + NSR @ (80) and + RBBB (incomplete)
--- NOTE | 2023-02-20 19:49 | History & Physical Report ---
Date of Service February 20, 2023 Assessment & Plan (1) Cecum perforation: Plan: 77yo male with history of metastatic colon cancer presenting with 3 weeks of progressively worsening abdominal pain and distention. Imaging as above with suggestion of cecal perforation with large volume of extraluminal stool/abscess between the base of the cecum and the bladder. Also with extensive metastatic disease noted. Patient presently afebrile, HD stable at present. Patient to be taken to the OR for exploratory laparotomy. -Admission to MICU following surgical intervention -Continue Zosyn (2) Hypertension: Plan: Blood pressure adequately controlled at present. Patient is on Carvedilol 3.125mg po BID and Diltiazem 240mg po daily -Hold antihypertensive agents for now -Closely monitor blood pressure (3) Hypothyroidism: Plan: Chronic. Stable. Last TSH on 12/14/22 = 4.131. Patient is on Synthroid 50mcg po daily -Hold Synthroid for now -If patient is unable to take PO in the next several days should initiate IV Synthroid (4) COPD (chronic obstructive pulmonary disease): Plan: Chronic. Stable. Patient denies cough, SOB or wheeze -Duonebs PRN (5) Cirrhosis of liver: Plan: Patient with liver cirrhosis, MELD 3.0 score of 16. Appear to be relatively well compensated at this time. He has known varices, denies melena/hematochezia -Resume Carvedilol when patient can tolerate PO -Resume Lactulose when patient can tolerated PO -Consider nutrition consultation (6) Metastatic colon cancer to liver: Plan: Noted. Patient is no longer receiving chemotherapy F/E/N - Heplock. Electrolytes WNL. NPO for now Ppx - SCDs Code - Full Dispo -Admit to MICU History of Present Illness Chief Complaint: Abdominal pain Primary Care Provider: [facility] Mario Gomez is a 77yo male with history of colon cancer with metastatic disease to lung and liver as well as HCV, HTN, HLP and liver cirrhosis with esophageal varices presenting from [facility] with complaint of ongoing abdominal pain. Patient reports 3 weeks of progressively worsening abdominal pain and abdominal distention. He has had ongoing intermittent nausea. He reports decreased flatus and small, infrequent BMs that "look like yellow mustard". He is not eating much. Patient reports that the pain today is "the worst pain ever". Pain is generalized in the abdomen but worst in the lower abdomen. In is increased with movement and deep breathing. He denies fever, chills but has had some shortness of breath secondary to the pain. In the ER he is afebrile, HD stable Patient evaluated by Dr. Banks of General Surgery and is to go to the OR for exploratory laparotomy and resection. ER Course: LR x 1L at 150mL/hr Zosyn 4.5gm Zofran 4mg Morphine 4mg NSS x 1L bolus Allergies Allergy/AdvReac Type Severity Reaction Status Date / Time nitrofurantoin Allergy Unknown LISTED ON Verified 02/20/23 18:25 [From Macrobid] MEDICAL RECORD sodium chloride Allergy Unknown CONTRAINDICATED Verified 02/20/23 18:25 [From [place] Nasal] MEDICATION Home Medications Medication Instructions Recorded Confirmed Type carvedilol 3.125 mg tablet 3.125 mg PO BID 04/13/21 02/20/23 History diltiazem HCl 240 mg capsule,24 240 mg PO DAILY 04/13/21 02/20/23 History hr,extended release lactulose 10 gram/15 mL oral 20 g PO BID 06/30/22 02/20/23 History solution tamsulosin 0.4 mg capsule 0.4 mg PO DAILY 06/30/22 02/20/23 History ascorbic acid (vitamin C) 500 mg 500 mg PO DAILY 08/06/22 02/20/23 History tablet ferrous gluconate 324 mg (38 mg 324 mg PO DAILY 08/06/22 02/20/23 History iron) tablet albuterol sulfate 90 mcg/actuation 2 puff inhalation TIDR PRN 12/17/22 02/20/23 Rx aerosol inhaler (Ventolin HFA) shortness of breath or wheezing #8.5 grams food supplemt, lactose-reduced 1 ea PO BID 02/20/23 02/20/23 History (Ensure oral liquid) levothyroxine 50 mcg tablet 50 mcg PO DAILYBB 02/20/23 02/20/23 History polyethylene glycol 3350 17 17 g PO DAILY 02/20/23 02/20/23 History gram/dose oral powder (Miralax) vitamin E 1 applic topical BID 02/20/23 02/20/23 History Past Med/Surg History Medical History Cirrhosis of liver Colon cancer Constipation COPD (chronic obstructive pulmonary disease) Esophageal varices without bleeding HCV (hepatitis C virus) Hearing loss Hyperlipidemia Hypertension Hypothyroidism Inmate in correctional facility Low back pain Malignant neoplasm Thrombocytopenia Surgical History History of cataract surgery Family History Other Unknown family medical history Social History Smoking Status: Former smoker Second Hand Exposure: No; Do You Dip or Chew Tobacco: No; Hx Alcohol Use: No Hx Substance Use: No Preferred Language: Pakistani Communication Ability: Effective Leasing Property Manager Required: No Beliefs That Will Affect Care: None Current Living Situation: Other Current Living Situation Comment: fdc Feels Safe at Home: Yes Assistive Devices: Denture - Upper, Denture - Lower and Glasses Review of Systems Review of Systems: All systems reviewed & are unremarkable except as noted in HPI & below Physical Exam Physical Exam: General: patient in moderate distress secondary to abdominal pain, oriented x 3 Skin: warm, dry, intact, no rashes or lesions HEENT: NC/AT, PERRL, EOMI, anicteric sclera, conjunctiva without injection, external ear normal to inspection and nontender, nares patent, moist mucus membranes, dentition intact, no oropharyngeal lesions, neck supple, trachea midline, no LAD, no thyromegaly, no JVD Heart: +S1/S2, regular with ectopy, no m/r/g Lungs: equal air entry bilaterally, no rales/rhonchi/wheezes Abd: absent bowel sounds, soft, distended, tender to palpitation with rebound/guarding/peritonitis Ext: warm, 2+ pulses in UE/LE bilaterally, no clubbing/cyanosis, 2+ edema Neuro: nonfocal, patient AA&O x 4, speech intact, no facial droop, moving all extremities on command with equal strength 5/5 Results & Data Results & Data Vital Signs (Past 12 Hours) Vital Signs Temp Pulse Pulse Resp BP BP Pulse Ox 02/20/23 19:00 83 20 128/63 90 02/20/23 16:21 82 25 H 131/58 L 93 02/20/23 18:44 83 18 129/63 90 02/20/23 16:41 84 02/20/23 16:38 92 02/20/23 16:27 37.2 C 83 18 131/58 L 92 O2 Del Method 02/20/23 19:00 Room Air 02/20/23 16:21 Room Air 02/20/23 18:44 Room Air 02/20/23 16:41 02/20/23 16:38 Room Air 02/20/23 16:27 Room Air Laboratory Results Laboratory Results WBC 5.93 K/ul (4.8-10.8) 02/20/23 16:20 RBC 3.71 M/uL (4.70-6.10) L 02/20/23 16:20 Hgb 11.3 g/dl (14.0-18.0) L 02/20/23 16:20 Hct 32.5 % (42.0-52.0) L 02/20/23 16:20 MCV 87.6 fL (80.0-100.0) 02/20/23 16:20 MCH 30.5 pg (25.0-34.0) 02/20/23 16:20 MCHC 34.8 g/dL (32.0-36.0) 02/20/23 16:20 RDW Std Deviation 42.1 fL (36.4-46.3) 02/20/23 16:20 RDW Coeff of Jessica 13.1 % (11.5-14.5) 02/20/23 16:20 Plt Count 82 K/uL (130-400) L 02/20/23 16:20 MPV 10.8 fL (9.4-12.4) 02/20/23 16:20 Immature Gran % (Auto) 0.8 % 02/20/23 16:20 Neut % (Auto) 87.1 % 02/20/23 16:20 Lymph % (Auto) 5.7 % 02/20/23 16:20 [place] % (Auto) 6.2 % 02/20/23 16:20 Eos % (Auto) 0.0 % 02/20/23 16:20 Baso % (Auto) 0.2 % 02/20/23 16:20 Neut # (Auto) 5.16 K/uL (1.40-6.50) 02/20/23 16:20 Lymph # (Auto) 0.34 K/uL (1.2-3.4) L 02/20/23 16:20 [place] # (Auto) 0.37 K/uL (0.11-0.59) 02/20/23 16:20 Eos # (Auto) 0.00 K/uL (0-0.50) 02/20/23 16:20 Baso # (Auto) 0.01 K/uL (0-0.2) 02/20/23 16:20 Immature Gran # (Auto) 0.05 K/uL (0.01-0.20) 02/20/23 16:20 PT 15.0 Seconds (9.0-12.0) H 02/20/23 19:31 INR 1.4 (0.9-1.1) H 02/20/23 19:31 Sodium 134 mmol/L (136-145) L 02/20/23 16:20 Potassium 3.7 mmol/L (3.5-5.1) 02/20/23 16:20 Chloride 104 mmol/L (98-107) 02/20/23 16:20 Carbon Dioxide 21 mmol/L (21-32) 02/20/23 16:20 Anion Gap 9 (3-11) 02/20/23 16:20 BUN 30 mg/dl (6-23) H 02/20/23 16:20 Creatinine 0.60 mg/dl (0.6-1.4) 02/20/23 16:20 Est Cr Clr Drug Dosing 108.6 ml/min 02/20/23 16:20 Est GFR ( Amer) 111.6 ml/min 02/20/23 16:20 Est GFR (Non-Af Amer) 96.3 ml/min 02/20/23 16:20 BUN/Creatinine Ratio 50.0 (10-20) H 02/20/23 16:20 Glucose 111 mg/dl (70-99(Fasting)) H 02/20/23 16:20 Lactate 1.5 mmol/L (0.4-2.0) 02/20/23 16:49 Calcium 8.1 mg/dl (8.6-10.3) L 02/20/23 16:20 Total Bilirubin 2.3 mg/dl (0.2-1.0) H 02/20/23 16:20 AST 85 U/L (13-39) H 02/20/23 16:20 ALT 39 U/L (7-52) 02/20/23 16:20 Alkaline Phosphatase 195 U/L (34-104) H 02/20/23 16:20 Troponin I High Sens 14.1 pg/ml (0-20) 02/20/23 16:20 Total Protein 5.2 gm/dl (6.0-8.3) L 02/20/23 16:20 Albumin 2.7 gm/dl (3.4-5.0) L 02/20/23 16:20 Globulin 2.5 gm/dl (2.5-4.0) 02/20/23 16:20 Albumin/Globulin Ratio 1.1 (0.9-2) 02/20/23 16:20 Lipase < 3 U/L (11-82) L 02/20/23 16:20 SARS-CoV-2, RNA, NAAT NEGATIVE (NEGATIVE) 02/20/23 19:15 Impressions Abdomen/Pelvis CT 02/20/23 16:35 CT SCAN OF THE ABDOMEN AND PELVIS WITH IV CONTRAST CLINICAL HISTORY: Generalized abdominal pain. COMPARISON STUDY: Abdominal CT dated 04/23/2022. TECHNIQUE: Following the IV administration of 92 cc of Optiray 320, CT scan of the abdomen and pelvis is performed from the lung bases to the proximal femora. Images are reviewed in the axial, sagittal, and coronal planes. IV contrast was administered without complication. A dose lowering technique was utilized adhering to the principles of ALARA. CT DOSE: 973.54 mGy.cm FINDINGS: Lung bases: The heart is top normal in size and without pericardial effusion. There are small left and trace right pleural effusions. Extensive/multifocal pulmonary metastatic disease is seen throughout both lung bases. The largest nodule is seen at the left lung base on image #23 measures 15 mm. Intralobular septal thickening is seen at both lung bases and suggest fluid overload. There are esophageal varices. Liver: The contrast-enhanced liver is cirrhotic in morphology and heterogeneous in attenuation. There is hypertrophy of the left lobe and nodularity of the surface contour. There is no intrahepatic biliary ductal dilatation. The hepatic veins and portal veins are patent. There is evidence of multifocal hepatic metastatic disease. The largest lesion is seen in the right lobe on image #71 and measures 2.6 cm. A large pocket of gas is seen within the left lobe of the liver on image #95 an measures up to 4.6 cm. Gallbladder: Unremarkable. Spleen: The spleen is markedly enlarged measuring 19.2 cm in length. There are perigastric and perisplenic varices. Pancreas: Unremarkable. Adrenal glands: Left adrenal metastases are new from previous. These measure up to 1.9 cm. The right adrenal gland is normal in appearance. Kidneys: The contrast enhanced kidneys are normal in size and without hydronephrosis. The kidneys enhance symmetrically. There is a 3 mm non obstructing left renal calculus. A 3.7 cm exophytic cyst is again seen arising from the left lower pole. Additional scattered subcentimeter cortical hypodensities likely represents cysts but too small for definitive characterization. Abdominal vasculature: The abdominal aorta is normal in course and caliber noting advanced atherosclerotic calcification. Bowel: There is no bowel obstruction. A large mass lesion is again seen at the base of the cecum. There is evidence of colonic perforation. A large pocket of extraluminal stool is seen between the cecum and bladder on axial image #278. This measures 7.5 x 6.5 cm. Wall thickening of the left colon is likely related to adjacent inflammation. Peritoneum: Intraperitoneal free air is seen below the diaphragm (axial image #75). There is a small volume of perihepatic ascites. This ascitic fluid is also seen in the right paracolic gutter extending into the pelvis. There is trace free fluid tracking along the mesentery. Lymphadenopathy: There is metastatic retroperitoneal lymphadenopathy. A left periaortic shahzad aggregate on image #179 and measures 2.2 x 1.6 cm. A left iliac chain node on image #221 measures 1.7 x 1.1 cm. Pelvic viscera: The prostate gland is mildly enlarged and heterogeneous. Asymmetric bladder wall thickening is seen superiorly on the right. This is likely secondary to adjacent inflammation/abscess. Skeletal structures: The skeletal structures are osteopenic. There is a large osteoblastic metastasis within the right iliac wing is seen on image #277 with associated periostitis. There is also a lesion within the left sacral ala on image #231. Soft tissues: The patient is cachectic. IMPRESSION: 1. Again seen is a large mass lesion at the base of the cecum, likely representing a colonic neoplasm. 2. There is evidence of cecal perforation, with a large volume of extraluminal stool/abscess between the base of the cecum and the bladder. 3. There is intraperitoneal free air, abdominopelvic ascites, and evidence of peritonitis. 4. There is evidence of extensive/multifocal metastatic disease. 5. There is extensive pulmonary metastatic disease, multifocal hepatic metastatic disease, left adrenal metastases, metastatic retroperitoneal and iliac chain lymphadenopathy, and osteoblastic metastatic disease. 6. Asymmetric right-sided bladder wall thickening is likely related to adjacent stool/inflammation. 7. Small left and trace right pleural effusions. 8. There is a 4.6 cm largely gas-containing collection in the left lobe of the liver. Hepatic abscess is not excluded. 9. Cirrhotic liver morphology. 10. Marked splenomegaly, esophageal varices, and upper abdominal varices indicate portal hypertension. 11. Left-sided nephrolithiasis. 12. Additional findings above. ACT 112: Negative or not required by law. Electronically signed by: Valente Lynn M.D. 02/20/2023 6:39 PM Code Status & VTE Plan VTE Prophylaxis Plan VTE Prophylaxis will be ordered: Yes PG Care Time/CCT Total # of Minutes Spent Total Time Spent with Patient: Total time spent is greater than 50% in coordination of care (as documented) at patient's floor/unit and/or counseling patient: Coding Level of Care Code 03558 INT INP/OBS CARE MIN Diagnoses Cecum perforation K35.32 Hypertension I10 Hypothyroidism E03.9 COPD (chronic obstructive pulmonary disease) J44.9 Cirrhosis of liver K74.60 Metastatic colon cancer to liver C18.9; C78.7
[2023-02-20] MEDS ORDERED: KETAMINE 50 MG/5 ML SYRINGE ONE (19:50)
[2023-02-20] MEDS: LACTATED RINGER'S 1,000 ML IV SCH (19:55)
--- NOTE | 2023-02-20 19:59 | History & Physical Report ---
Date of Service February 20, 2023 Assessment & Plan (1) Metastatic colon cancer to liver: Plan: medical consult (2) Cirrhosis of liver: Plan: medical consult (3) COPD (chronic obstructive pulmonary disease): Plan: medical consult (4) Hypertension: Plan: medical consult (5) Perforation of cecum: Plan: Extensive metastatic disease cecal mass with localized perforation and free air explained situation; wishes to undergo exploration for damage control will do limited right colon and likely anastomosis but possible ostomy hemodynamically stable Present on Admission?: Yes History of Present Illness Primary Care Provider: SANTO Larson This is a 77-year-old male presenting with abdominal pain and abdominal distention who has a history of 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 He reports progressive abdominal pain over the last 3 weeks and his abdomen has been more more distended. He has had anorexia but some nausea or vomiting. He denies chest pain but does report some increasing shortness of breath. He also has hep C and associated liver cirrhosis. CT scan demonstrates cecal mass who localized perforation and abscess with free air. Hemodynamically stable. Allergies Allergy/AdvReac Type Severity Reaction Status Date / Time nitrofurantoin Allergy Unknown LISTED ON Verified 02/20/23 18:25 [From Macrobid] MEDICAL RECORD sodium chloride Allergy Unknown CONTRAINDICATED Verified 02/20/23 18:25 [From [place] Nasal] MEDICATION Home Medications Medication Instructions Recorded Confirmed Type carvedilol 3.125 mg tablet 3.125 mg PO BID 04/13/21 02/20/23 History diltiazem HCl 240 mg capsule,24 240 mg PO DAILY 04/13/21 02/20/23 History hr,extended release lactulose 10 gram/15 mL oral 20 g PO BID 06/30/22 02/20/23 History solution tamsulosin 0.4 mg capsule 0.4 mg PO DAILY 06/30/22 02/20/23 History ascorbic acid (vitamin C) 500 mg 500 mg PO DAILY 08/06/22 02/20/23 History tablet ferrous gluconate 324 mg (38 mg 324 mg PO DAILY 08/06/22 02/20/23 History iron) tablet albuterol sulfate 90 mcg/actuation 2 puff inhalation TIDR PRN 12/17/22 02/20/23 Rx aerosol inhaler (Ventolin HFA) shortness of breath or wheezing #8.5 grams food supplemt, lactose-reduced 1 ea PO BID 02/20/23 02/20/23 History (Ensure oral liquid) levothyroxine 50 mcg tablet 50 mcg PO DAILYBB 02/20/23 02/20/23 History polyethylene glycol 3350 17 17 g PO DAILY 02/20/23 02/20/23 History gram/dose oral powder (Miralax) vitamin E 1 applic topical BID 02/20/23 02/20/23 History Past Med/Surg History Medical History Cirrhosis of liver Colon cancer Constipation COPD (chronic obstructive pulmonary disease) Esophageal varices without bleeding HCV (hepatitis C virus) Hearing loss Hyperlipidemia Hypertension Hypothyroidism Inmate in correctional facility Low back pain Malignant neoplasm Thrombocytopenia Surgical History History of cataract surgery Family History Other Unknown family medical history Social History Smoking Status: Former smoker Second Hand Exposure: No; Do You Dip or Chew Tobacco: No; Hx Alcohol Use: No Hx Substance Use: No Preferred Language: Kiswahili Communication Ability: Effective Dermatology Nurse Required: No Beliefs That Will Affect Care: None Current Living Situation: Other Current Living Situation Comment: intermediate Feels Safe at Home: Yes Assistive Devices: Denture - Upper, Denture - Lower and Glasses Review of Systems + weakness and + anorexia; no fever and no chills no problem reported no problem reported + dyspnea; no cough no chest pain + abdominal pain, + nausea and + change in bowel habits; no vomiting no dysuria no back pain no problem reported + generalized weakness; no localized weakness no behavioral changes + easy bleeding and + easy bruising Physical Exam Constitutional: + thin Eyes: PERRL, conjunctivae normal, anicteric sclerae ENMT: external ear and nose normal, oropharynx normal Neck: trachea midline Respiratory: normal respiratory effort, lungs clear to auscultation Cardiovascular: RRR, no murmur, no edema Gastrointestinal (Abdomen): Inspection/Auscultation: abdomen normal to inspection, + abdomen distended and normal bowel sounds; no visible herniation and no abdominal surgical scar Percussion/Palpation: + abdomen tender, + guarding, abdomen soft and + abdominal mass; abdomen not rigid and no hernia Musculoskeletal: Head/Neck/Chest: normocephalic and head atraumatic Skin: no rashes, warm and dry Results & Data Vital Signs (Past 12 Hours) Vital Signs Temp Pulse Pulse Resp BP BP Pulse Ox 02/20/23 19:00 83 20 128/63 90 02/20/23 16:21 82 25 H 131/58 L 93 02/20/23 18:44 83 18 129/63 90 02/20/23 16:41 84 02/20/23 16:38 92 02/20/23 16:27 37.2 C 83 18 131/58 L 92 O2 Del Method 02/20/23 19:00 Room Air 02/20/23 16:21 Room Air 02/20/23 18:44 Room Air 02/20/23 16:41 02/20/23 16:38 Room Air 02/20/23 16:27 Room Air Diagnostic Findings CT SCAN OF THE ABDOMEN AND PELVIS WITH IV CONTRAST CLINICAL HISTORY: Generalized abdominal pain. COMPARISON STUDY: Abdominal CT dated 04/23/2022. TECHNIQUE: Following the IV administration of 92 cc of Optiray 320, CT scan of the abdomen and pelvis is performed from the lung bases to the proximal femora. Images are reviewed in the axial, sagittal, and coronal planes. IV contrast was administered without complication. A dose lowering technique was utilized adhering to the principles of ALARA. CT DOSE: 973.54 mGy.cm FINDINGS: Lung bases: The heart is top normal in size and without pericardial effusion. There are small left and trace right pleural effusions. Extensive/multifocal pulmonary metastatic disease is seen throughout both lung bases. The largest nodule is seen at the left lung base on image #23 measures 15 mm. Intralobular septal thickening is seen at both lung bases and suggest fluid overload. There are esophageal varices. Liver: The contrast-enhanced liver is cirrhotic in morphology and heterogeneous in attenuation. There is hypertrophy of the left lobe and nodularity of the surface contour. There is no intrahepatic biliary ductal dilatation. The hepatic veins and portal veins are patent. There is evidence of multifocal hepatic metastatic disease. The largest lesion is seen in the right lobe on image #71 and measures 2.6 cm. A large pocket of gas is seen within the left lobe of the liver on image #95 an measures up to 4.6 cm. Gallbladder: Unremarkable. Spleen: The spleen is markedly enlarged measuring 19.2 cm in length. There are perigastric and perisplenic varices. Pancreas: Unremarkable. Adrenal glands: Left adrenal metastases are new from previous. These measure up to 1.9 cm. The right adrenal gland is normal in appearance. Kidneys: The contrast enhanced kidneys are normal in size and without hydronephrosis. The kidneys enhance symmetrically. There is a 3 mm nonobstructing left renal calculus. A 3.7 cm exophytic cyst is again seen arising from the left lower pole. Additional scattered subcentimeter cortical hypodensities likely represents cysts but too small for definitive characterization. Abdominal vasculature: The abdominal aorta is normal in course and caliber noting advanced atherosclerotic calcification. Bowel: There is no bowel obstruction. A large mass lesion is again seen at the base of the cecum. There is evidence of colonic perforation. A large pocket of extraluminal stool is seen between the cecum and bladder on axial image #278. This measures 7.5 x 6.5 cm. Wall thickening of the left colon is likely related to adjacent inflammation. Peritoneum: Intraperitoneal free air is seen below the diaphragm (axial image #75). There is a small volume of perihepatic ascites. This ascitic fluid is also seen in the right paracolic gutter extending into the pelvis. There is trace free fluid tracking along the mesentery. Lymphadenopathy: There is metastatic retroperitoneal lymphadenopathy. A left periaortic shahzad aggregate on image #179 and measures 2.2 x 1.6 cm. A left iliac chain node on image #221 measures 1.7 x 1.1 cm. Pelvic viscera: The prostate gland is mildly enlarged and heterogeneous. Asymmetric bladder wall thickening is seen superiorly on the right. This is likely secondary to adjacent inflammation/abscess. Skeletal structures: The skeletal structures are osteopenic. There is a large osteoblastic metastasis within the right iliac wing is seen on image #277 with associated periostitis. There is also a lesion within the left sacral ala on image #231. Soft tissues: The patient is cachectic. IMPRESSION: 1. Again seen is a large mass lesion at the base of the cecum, likely representing a colonic neoplasm. 2. There is evidence of cecal perforation, with a large volume of extraluminal stool/abscess between the base of the cecum and the bladder. 3. There is intraperitoneal free air, abdominopelvic ascites, and evidence of peritonitis. 4. There is evidence of extensive/multifocal metastatic disease. 5. There is extensive pulmonary metastatic disease, multifocal hepatic metastatic disease, left adrenal metastases, metastatic retroperitoneal and iliac chain lymphadenopathy, and osteoblastic metastatic disease. 6. Asymmetric right-sided bladder wall thickening is likely related to adjacent stool/inflammation. 7. Small left and trace right pleural effusions. 8. There is a 4.6 cm largely gas-containing collection in the left lobe of the liver. Hepatic abscess is not excluded. 9. Cirrhotic liver morphology. 10. Marked splenomegaly, esophageal varices, and upper abdominal varices indicate portal hypertension. 11. Left-sided nephrolithiasis. 12. Additional findings above. Code Status & VTE Plan VTE Prophylaxis Plan VTE Prophylaxis will be ordered: Yes
[2023-02-20 20:23] LABS: INR 1.4 (0.9-1.1)
[2023-02-20] MEDS ORDERED: PROMETHAZINE HCL 6.25 MG in SODIUM CHLORIDE 0.9% 50 ML IV PRN (20:58)
[2023-02-20] MEDS ORDERED: ATROPINE SULFATE 0.1 MG/ML 10ML SYR IV PRN (20:58)
[2023-02-20] MEDS ORDERED: ONDANSETRON INJ 2 MG/ML 2 ML VIAL IV PRN ×2 (20:58→22:59)
[2023-02-20] MEDS ORDERED: ETOMIDATE 2 MG/ML 20 ML VIAL IV ONE (21:07)
[2023-02-20] MEDS ORDERED: ROCURONIUM BROMIDE 10 MG/ML 5 ML VIAL IV ONE (21:07)
[2023-02-20] MEDS ORDERED: LIDOCAINE 2% 2 ML VIAL/AMP(20MG/ML) INFIL ONE (21:07)
[2023-02-20] MEDS ORDERED: PROPOFOL IV EMULSION 10 MG/ML 20 ML VIAL IV ONE (21:07)
[2023-02-20] MEDS ORDERED: ONDANSETRON INJ 2 MG/ML 2 ML VIAL ONE (21:08)
[2023-02-20] MEDS ORDERED: GLYCOPYRROLATE 0.2 MG/ML VIAL ONE (21:59)
[2023-02-20] MEDS ORDERED: NEOSTIGMINE METHYLSULFATE 1 MG/ML 10ML VIAL ONE (21:59)
--- NOTE | 2023-02-20 22:03 | Post Operative Brief Note ---
Immediate Post Op Note v1 Date of Surgery February 20, 2023 Pre & Post Diagnosis Operation Date: 02/20/23 20:00 Pre-Op Diagnosis: Metastatic colon cancer to liver Post-Op Diagnosis: Metastatic colon cancer to liver I identified the patient and participated in the time-out.: Yes Procedure Operation Date: 02/20/23 20:00 Actual Procedures p Exploratory Laparotomy(Not Applicable) - Hira Banks MD Surgeon Hira Banks MD Biology Laboratory Assistant none Estimated Blood Loss 50 Findings Consistent with Post-Op Diagnosis perforated cecal cancer with abscess cavity; no fecal contamination but purulence, cultures taken; drain left in abscess cavity Drains Roper Catheter (16f; inserted by Shannon Crabtree RN; Tea colored urine returned, 10cc in balloon.)
[2023-02-20] MEDS ORDERED: HYDROmorphone INJ 1 MG/ML SYRINGE ONE (22:29)
[2023-02-20] MEDS: HYDROmorphone INJ 1 MG/ML SYRINGE IV PRN ×4 (22:30→22:45)
--- NOTE | 2023-02-20 22:45 | Anesthesiology Progress Note ---
Date of Service February 20, 2023 Anesthesia Post Procedure Vital Signs Vital Signs: Temp Pulse Pulse Resp BP BP Pulse Ox 02/20/23 22:40 78 19 120/57 L 95 02/20/23 22:30 77 25 H 116/56 L 98 02/20/23 22:20 75 18 127/58 L 98 02/20/23 22:10 36.4 C L 77 20 126/65 97 02/20/23 20:01 83 20 117/60 90 02/20/23 19:00 83 20 128/63 90 02/20/23 16:21 82 25 H 131/58 L 93 02/20/23 18:44 83 18 129/63 90 02/20/23 16:41 84 02/20/23 16:38 92 02/20/23 16:27 37.2 C 83 18 131/58 L 92 O2 Del Method O2 Flow Rate 02/20/23 22:40 Oxymask 5 02/20/23 22:30 Oxymask 10 02/20/23 22:20 Oxymask 10 02/20/23 22:10 Oxymask 10 02/20/23 20:01 Room Air 02/20/23 19:00 Room Air 02/20/23 16:21 Room Air 02/20/23 18:44 Room Air 02/20/23 16:41 02/20/23 16:38 Room Air 02/20/23 16:27 Room Air Pain Intensity Abdomen: Pain Intensity: 6 Transfer of Care Handoff Completed per policy Notes Mental Status: alert / awake / arousable Patient Amnestic to Procedure: Yes Nausea / Vomiting: adequately controlled Pain: adequately controlled Airway Patency, RR, SpO2: stable & adequate BP & HR: stable & adequate Hydration State: stable & adequate Anesthetic Complications: no major complications apparent
[2023-02-20] MEDS ORDERED: ALBUT/IPRATROP 3MG/0.5MG NEB 3 ML VIAL NEB PRN (22:59)
[2023-02-20] MEDS ORDERED: MoRPHine SULFATE 2 MG/ML CARP IV PRN (22:59)
[2023-02-20] MEDS: MoRPHine SULFATE 4 MG/ML 1 ML CARP\\VIAL IV PRN (23:34)
[2023-02-20] MEDS: PIPERACILLIN/TAZOBACTAM 4.5 GM in DEXTROSE 5% 100 ML IV SCH (23:37)
[2023-02-20 23:42] LABS: BUN Creatinine Ratio 54.9 (10-20); Calcium 7.7 mg/dl (8.6-10.3); Creatinine Clr Calc Pharmacy 116.3 ml/min; Est GFR (African American) 119.3 ml/min; Potassium 3.5 mmol/L (3.5-5.1)
--- NOTE | 2023-02-20 23:48 | Consultation ---
Date of Consultation February 20, 2023 Assessment & Plan (1) Cecum perforation: 77yo male with history of metastatic colon cancer presenting with 3 weeks of progressively worsening abdominal pain and distention. Imaging as above with suggestion of cecal perforation with large volume of extraluminal stool/abscess between the base of the cecum and the bladder. Also with extensive metastatic disease noted. Patient presently afebrile, HD stable at present. Patient to be taken to the OR for exploratory laparotomy. -Admission to MICU following surgical intervention -Continue Zosyn (2) Hypertension: Blood pressure adequately controlled at present. Patient is on Carvedilol 3.125 mg po BID and Diltiazem 240mg po daily -Hold antihypertensive agents for now -Closely monitor blood pressure (3) Hypothyroidism: Chronic. Stable. Last TSH on 12/14/22 = 4.131. Patient is on Synthroid 50mcg po daily -Hold Synthroid for now -If patient is unable to take PO in the next several days should initiate IV Synthroid (4) COPD (chronic obstructive pulmonary disease): Chronic. Stable. Patient denies cough, SOB or wheeze -Duonebs PRN (5) Cirrhosis of liver: Patient with liver cirrhosis, MELD 3.0 score of 16. Appear to be relatively well compensated at this time. He has known varices, denies melena/hematochezia -Resume Carvedilol when patient can tolerate PO -Resume Lactulose when patient can tolerated PO -Consider nutrition consultation (6) Metastatic colon cancer to liver: Noted. Patient is no longer receiving chemotherapy F/E/N - Heplock. Electrolytes WNL. NPO for now Ppx - SCDs Code - Full Dispo -Admit to MICU History of Present Illness Reason for Consultation: medical management Attending Physician: Hira Banks MD History of Present Illness Chief Complaint: Abdominal pain Primary Care Provider: [facility] Mario Gomez is a 77yo male with history of colon cancer with metastatic disease to lung and liver as well as HCV, HTN, HLP and liver cirrhosis with e sophageal varices presenting from [facility] with complaint of ongoing abdominal pain. Patient reports 3 weeks of progressively worsening abdominal pain and abdominal distention. He has had ongoing intermittent nausea. He reports decreased flatus and small, infrequent BMs that "look like yellow mustard". He is not eating much. Patient reports that the pain today is "the worst pain ever". Pain is generalized in the abdomen but worst in the lower abdomen. In is increased with movement and deep breathing. He denies fever, chills but has had some shortness of breath secondary to the pain. In the ER he is afebrile, HD stable Patient evaluated by Dr. Banks of General Surgery and is to go to the OR for exploratory laparotomy and resection. ER Course: LR x 1L at 150mL/hr Zosyn 4.5gm Zofran 4mg Morphine 4mg NSS x 1L bolus Allergies Allergy/AdvReac Type Severity Reaction Status Date / Time nitrofurantoin Allergy Unknown LISTED ON Verified 02/20/23 18:25 [From Macrobid] MEDICAL RECORD sodium chloride Allergy Unknown CONTRAINDICATED Verified 02/20/23 18:25 [From [place] Nasal] MEDICATION Home Medications Medication Instructions Recorded Confirmed Type carvedilol 3.125 mg tablet 3.125 mg PO BID 04/13/21 02/20/23 History diltiazem HCl 240 mg capsule,24 240 mg PO DAILY 04/13/21 02/20/23 History hr,extended release lactulose 10 gram/15 mL oral 20 g PO BID 06/30/22 02/20/23 History solution tamsulosin 0.4 mg capsule 0.4 mg PO DAILY 06/30/22 02/20/23 History ascorbic acid (vitamin C) 500 mg 500 mg PO DAILY 08/06/22 02/20/23 History tablet ferrous gluconate 324 mg (38 mg 324 mg PO DAILY 08/06/22 02/20/23 History iron) tablet albuterol sulfate 90 mcg/actuation 2 puff inhalation TIDR PRN 12/17/22 02/20/23 Rx aerosol inhaler (Ventolin HFA) shortness of breath or wheezing #8.5 grams food supplemt, lactose-reduced 1 ea PO BID 02/20/23 02/20/23 History (Ensure oral liquid) levothyroxine 50 mcg tablet 50 mcg PO DAILYBB 02/20/23 02/20/23 History polyethylene glycol 3350 17 17 g PO DAILY 02/20/23 02/20/23 History gram/dose oral powder (Miralax) vitamin E 1 applic topical BID 02/20/23 02/20/23 History Patient History Medical History Cirrhosis of liver Colon cancer Constipation COPD (chronic obstructive pulmonary disease) Esophageal varices without bleeding HCV (hepatitis C virus) Hearing loss Hyperlipidemia Hypertension Hypothyroidism Inmate in correctional facility Low back pain Malignant neoplasm Thrombocytopenia Surgical History History of cataract surgery Family History Other Unknown family medical history Social History Smoking Status: Former smoker Second Hand Exposure: No; Do You Dip or Chew Tobacco: No; Hx Alcohol Use: No Hx Substance Use: No Preferred Language: Swazi Communication Ability: Effective Manager Track Required: No Beliefs That Will Affect Care: None Current Living Situation: Other Current Living Situation Comment: Correctional Facility Other Information That Helps Us Care for You: No Feels Safe at Home: Yes Safety Concerns: Feels Safe At This Time Assistive Devices: Denture - Upper and Denture - Lower Review of Systems Review of Systems: All systems reviewed & are unremarkable except as noted in HPI & below Physical Exam Physical Exam: General: patient in moderate distress secondary to abdominal pain, oriented x 3 Skin: warm, dry, intact, no rashes or lesions HEENT: NC/AT, PERRL, EOMI, anicteric sclera, conjunctiva without injection, external ear normal to inspection and nontender, nares patent, moist mucus membranes, dentition intact, no oropharyngeal lesions, neck supple, trachea midline, no LAD, no thyromegaly, no JVD Heart: +S1/S2, regular with ectopy, no m/r/g Lungs: equal air entry bilaterally, no rales/rhonchi/wheezes Abd: absent bowel sounds, soft, distended, tender to palpitation with rebound/guarding/peritonitis Ext: warm, 2+ pulses in UE/LE bilaterally, no clubbing/cyanosis, 2+ edema Neuro: nonfocal, patient AA&O x 4, speech intact, no facial droop, moving all extremities on command with equal strength 5/5 Results & Data Vital Signs (Past 12 Hours) Vital Signs Temp Pulse Pulse Resp BP BP Pulse Ox 02/20/23 23:01 36.5 C 79 18 114/55 L 96 02/20/23 22:40 78 19 120/57 L 95 02/20/23 22:30 77 25 H 116/56 L 98 02/20/23 22:20 75 18 127/58 L 98 02/20/23 22:10 36.4 C L 77 20 126/65 97 02/20/23 20:01 83 20 117/60 90 02/20/23 19:00 83 20 128/63 90 02/20/23 16:21 82 25 H 131/58 L 93 02/20/23 18:44 83 18 129/63 90 02/20/23 16:41 84 02/20/23 16:38 92 02/20/23 16:27 37.2 C 83 18 131/58 L 92 O2 Del Method O2 Flow Rate 02/20/23 23:01 Oxymask 4 02/20/23 22:40 Oxymask 5 02/20/23 22:30 Oxymask 10 02/20/23 22:20 Oxymask 10 02/20/23 22:10 Oxymask 10 02/20/23 20:01 Room Air 02/20/23 19:00 Room Air 02/20/23 16:21 Room Air 02/20/23 18:44 Room Air 02/20/23 16:41 02/20/23 16:38 Room Air 02/20/23 16:27 Room Air Laboratory Results Laboratory Results WBC 5.93 K/ul (4.8-10.8) 02/20/23 16:20 RBC 3.71 M/uL (4.70-6.10) L 02/20/23 16:20 Hgb 11.3 g/dl (14.0-18.0) L 02/20/23 16:20 Hct 32.5 % (42.0-52.0) L 02/20/23 16:20 MCV 87.6 fL (80.0-100.0) 02/20/23 16:20 MCH 30.5 pg (25.0-34.0) 02/20/23 16:20 MCHC 34.8 g/dL (32.0-36.0) 02/20/23 16:20 RDW Std Deviation 42.1 fL (36.4-46.3) 02/20/23 16:20 RDW Coeff of Jessica 13.1 % (11.5-14.5) 02/20/23 16:20 Plt Count 82 K/uL (130-400) L 02/20/23 16:20 MPV 10.8 fL (9.4-12.4) 02/20/23 16:20 Immature Gran % (Auto) 0.8 % 02/20/23 16:20 Neut % (Auto) 87.1 % 02/20/23 16:20 Lymph % (Auto) 5.7 % 02/20/23 16:20 [place] % (Auto) 6.2 % 02/20/23 16:20 Eos % (Auto) 0.0 % 02/20/23 16:20 Baso % (Auto) 0.2 % 02/20/23 16:20 Neut # (Auto) 5.16 K/uL (1.40-6.50) 02/20/23 16:20 Lymph # (Auto) 0.34 K/uL (1.2-3.4) L 02/20/23 16:20 [place] # (Auto) 0.37 K/uL (0.11-0.59) 02/20/23 16:20 Eos # (Auto) 0.00 K/uL (0-0.50) 02/20/23 16:20 Baso # (Auto) 0.01 K/uL (0-0.2) 02/20/23 16:20 Immature Gran # (Auto) 0.05 K/uL (0.01-0.20) 02/20/23 16:20 PT 15.0 Seconds (9.0-12.0) H 02/20/23 19:31 INR 1.4 (0.9-1.1) H 02/20/23 19:31 Sodium 135 mmol/L (136-145) L 02/20/23 23:08 Potassium 3.5 mmol/L (3.5-5.1) 02/20/23 23:08 Chloride 106 mmol/L (98-107) 02/20/23 23:08 Carbon Dioxide 21 mmol/L (21-32) 02/20/23 23:08 Anion Gap 8 (3-11) 02/20/23 23:08 BUN 28 mg/dl (6-23) H 02/20/23 23:08 Creatinine 0.51 mg/dl (0.6-1.4) L 02/20/23 23:08 Est Cr Clr Drug Dosing 116.3 ml/min 02/20/23 23:08 Est GFR ( Amer) 119.3 ml/min 02/20/23 23:08 Est GFR (Non-Af Amer) 103.0 ml/min 02/20/23 23:08 BUN/Creatinine Ratio 54.9 (10-20) H 02/20/23 23:08 Glucose 107 mg/dl (70-99(Fasting)) H 02/20/23 23:08 Lactate 1.5 mmol/L (0.4-2.0) 02/20/23 16:49 Calcium 7.7 mg/dl (8.6-10.3) L 02/20/23 23:08 Total Bilirubin 2.3 mg/dl (0.2-1.0) H 02/20/23 16:20 AST 85 U/L (13-39) H 02/20/23 16:20 ALT 39 U/L (7-52) 02/20/23 16:20 Alkaline Phosphatase 195 U/L (34-104) H 02/20/23 16:20 Troponin I High Sens 14.1 pg/ml (0-20) 02/20/23 16:20 Total Protein 5.2 gm/dl (6.0-8.3) L 02/20/23 16:20 Albumin 2.7 gm/dl (3.4-5.0) L 02/20/23 16:20 Globulin 2.5 gm/dl (2.5-4.0) 02/20/23 16:20 Albumin/Globulin Ratio 1.1 (0.9-2) 02/20/23 16:20 Lipase < 3 U/L (11-82) L 02/20/23 16:20 SARS-CoV-2, RNA, NAAT NEGATIVE (NEGATIVE) 02/20/23 19:15 Impressions Abdomen/Pelvis CT 02/20/23 16:35 CT SCAN OF THE ABDOMEN AND PELVIS WITH IV CONTRAST CLINICAL HISTORY: Generalized abdominal pain. COMPARISON STUDY: Abdominal CT dated 04/23/2022. TECHNIQUE: Following the IV administration of 92 cc of Optiray 320, CT scan of the abdomen and pelvis is performed from the lung bases to the proximal femora. Images are reviewed in the axial, sagittal, and coronal planes. IV contrast was administered without complication. A dose lowering technique was utilized adhering to the principles of ALARA. CT DOSE: 973.54 mGy.cm FINDINGS: Lung bases: The heart is top normal in size and without pericardial effusion. There are small left and trace right pleural effusions. Extensive/multifocal pulmonary metastatic disease is seen throughout both lung bases. The largest nodule is seen at the left lung base on image #23 measures 15 mm. Intralobular septal thickening is seen at both lung bases and suggest fluid overload. There are esophageal varices. Liver: The contrast-enhanced liver is cirrhotic in morphology and heterogeneous in attenuation. There is hypertrophy of the left lobe and nodularity of the surface contour. There is no intrahepatic biliary ductal dilatation. The hepatic veins and portal veins are patent. There is evidence of multifocal hepatic metastatic disease. The largest lesion is seen in the right lobe on image #71 and measures 2.6 cm. A large pocket of gas is seen within the left lobe of the liver on image #95 an measures up to 4.6 cm. Gallbladder: Unremarkable. Spleen: The spleen is markedly enlarged measuring 19.2 cm in length. There are perigastric and perisplenic varices. Pancreas: Unremarkable. Adrenal glands: Left adrenal metastases are new from previous. These measure up to 1.9 cm. The right adrenal gland is normal in appearance. Kidneys: The contrast enhanced kidneys are normal in size and without hydronephrosis. The kidneys enhance symmetrically. There is a 3 mm nonobstructing left renal calculus. A 3.7 cm exophytic cyst is again seen arising from the left lower pole. Additional scattered subcentimeter cortical hypodensities likely represents cysts but too small for definitive characterization. Abdominal vasculature: The abdominal aorta is normal in course and caliber noting advanced atherosclerotic calcification. Bowel: There is no bowel obstruction. A large mass lesion is again seen at the base of the cecum. There is evidence of colonic perforation. A large pocket of extraluminal stool is seen between the cecum and bladder on axial image #278. This measures 7.5 x 6.5 cm. Wall thickening of the left colon is likely related to adjacent inflammation. Peritoneum: Intraperitoneal free air is seen below the diaphragm (axial image #75). There is a small volume of perihepatic ascites. This ascitic fluid is also seen in the right paracolic gutter extending into the pelvis. There is trace free fluid tracking along the mesentery. Lymphadenopathy: There is metastatic retroperitoneal lymphadenopathy. A left periaortic shahzad aggregate on image #179 and measures 2.2 x 1.6 cm. A left iliac chain node on image #221 measures 1.7 x 1.1 cm. Pelvic viscera: The prostate gland is mildly enlarged and heterogeneous. Asymmetric bladder wall thickening is seen superiorly on the right. This is likely secondary to adjacent inflammation/abscess. Skeletal structures: The skeletal structures are osteopenic. There is a large osteoblastic metastasis within the right iliac wing is seen on image #277 with associated periostitis. There is also a lesion within the left sacral ala on image #231. Soft tissues: The patient is cachectic. IMPRESSION: 1. Again seen is a large mass lesion at the base of the cecum, likely representing a colonic neoplasm. 2. There is evidence of cecal perforation, with a large volume of extraluminal stool/abscess between the base of the cecum and the bladder. 3. There is intraperitoneal free air, abdominopelvic ascites, and evidence of peritonitis. 4. There is evidence of extensive/multifocal metastatic disease. 5. There is extensive pulmonary metastatic disease, multifocal hepatic metastatic disease, left adrenal metastases, metastatic retroperitoneal and iliac chain lymphadenopathy, and osteoblastic metastatic disease. 6. Asymmetric right-sided bladder wall thickening is likely related to adjacent stool/inflammation. 7. Small left and trace right pleural effusions. 8. There is a 4.6 cm largely gas-containing collection in the left lobe of the liver. Hepatic abscess is not excluded. 9. Cirrhotic liver morphology. 10. Marked splenomegaly, esophageal varices, and upper abdominal varices indicate portal hypertension. 11. Left-sided nephrolithiasis. 12. Additional findings above. ACT 112: Negative or not required by law. Electronically signed by: Valente Lynn M.D. 02/20/2023 6:39 PM PG Care Time/CCT Total # of Minutes Spent Total Time Spent with Patient: Total time spent is greater than 50% in coordination of care (as documented) at patient's floor/unit and/or counseling patient: Coding Level of Care Code 84686 IN/OBS CONSULT LVL 4,60M Diagnoses Cecum perforation K35.32 Hypertension I10 Hypothyroidism E03.9 COPD (chronic obstructive pulmonary disease) J44.9 Cirrhosis of liver K74.60 Metastatic colon cancer to liver C18.9; C78.7
--- NOTE | 2023-02-20 23:58 | Critical Care Consultation ---
Date of Consultation February 20, 2023 Assessment & Plan (1) Cecum perforation: Impression: 77-year-old male with metastatic colon cancer presents to the ICU postop following perforation of the cecum when she underwent exploratory laparotomy with resection. Neuro - [facility] ICU: Negative Cardiac - Currently patient is hemodynamically stable. -We will hold home dose antihypertensives for now. -Sinus rhythm on monitor. - Continuous monitoring on telemetry. Respiratory - COPDstable. DuoNebs as needed -Continuous monitoring on pulse ox GI - Perforated cecumsecondary to progressive metastatic colon cancer. Now status post ex lap with resection and anastomosis per general surgery -Admitted to ICU for close monitoring postop. Remains stable at this time -N.p.o. for now -Management per general surgery Cirrhosispatient with history of hepatitis C, also has metastatic disease to the liver. Has known varices -Current meld of 16 -Resume lactulose when taking p.o. -Trend LFTs RENAL/LYTES - Creatinine within normal limits, monitor routine BMPs and replete electrolytes as indicated LR at 125 - Strict I's and O's ENDO - Hypothyroidismhold Synthroid for now HEME - H&H stable, monitor routine CBC Thrombocytopeniastable. Monitor for now ID - Sepsis?No leukocytosis, lactic acid within normal limits, afebrile. We will continue with empiric Zosyn for now LINES/IV ACCESS - Peripheral IVs DVT PROPHYLAXIS - SCDs, hold anticoagulation following surgery CODE STATUS: Patient remains full code at this time. Due to his progressive metastatic disease and deteriorating health I have consulted palliative care to assist with further discussion regarding plan of care/CODE STATUS going forward Thank you for allowing us to participate in the care of this patient. Please refer to my attending physician's documentation for any further recommendations. (2) Intra-abdominal abscess: (3) Hypertension: (4) Hypothyroidism: (5) COPD (chronic obstructive pulmonary disease): (6) Metastatic colon cancer to liver: (7) Cirrhosis of liver: History of Present Illness Attending Physician: Hira Banks MD History of Present Illness Patient is a 77-year-old male prisoner with past medical history significant for colon cancer with metastatic disease to lung and liver, HCV, HTN, HLP, cirrhosis with esophageal varices, who presented to the emergency department with ongoing abdominal pain. Patient reports that he has had 3 weeks of ongoing abdominal pain with abdominal distention with decreased appetite. CT abdomen and pelvis suggesting cecal perforation with large volume of extraluminal stool/abscess between the base of the cecum and the bladder, also noted to have extensive metastatic disease. Patient was taken to the OR for emergent exploratory laparotomy. In the OR patient was found to have perforated cecal cancer with abscess cavity, for which she had resection and anastomosis. Patient now presents to the ICU for close monitoring postop. On arrival to the ICU the patient is alert and oriented. Currently he only complains of abdominal pain at the surgery site. He denies any headache, dizziness, syncope, fevers, cough or congestion, chest pain or palpitations, shortness of breath, nausea or vomiting, diarrhea, swelling in hands or feet. Patient to remain in ICU for further management at this time. Allergies Allergy/AdvReac Type Severity Reaction Status Date / Time nitrofurantoin Allergy Unknown LISTED ON Verified 02/20/23 18:25 [From Macrobid] MEDICAL RECORD sodium chloride Allergy Unknown CONTRAINDICATED Verified 02/20/23 18:25 [From [place] [facility] Nasal] MEDICATION Home Medications Medication Instructions Recorded Confirmed Type carvedilol 3.125 mg tablet 3.125 mg PO BID 04/13/21 02/20/23 History diltiazem HCl 240 mg capsule,24 240 mg PO DAILY 04/13/21 02/20/23 History hr,extended release lactulose 10 gram/15 mL oral 20 g PO BID 06/30/22 02/20/23 History solution tamsulosin 0.4 mg capsule 0.4 mg PO DAILY 06/30/22 02/20/23 History ascorbic acid (vitamin C) 500 mg 500 mg PO DAILY 08/06/22 02/20/23 History tablet ferrous gluconate 324 mg (38 mg 324 mg PO DAILY 08/06/22 02/20/23 History iron) tablet albuterol sulfate 90 mcg/actuation 2 puff inhalation TIDR PRN 12/17/22 02/20/23 Rx aerosol inhaler (Ventolin HFA) shortness of breath or wheezing #8.5 grams food supplemt, lactose-reduced 1 ea PO BID 02/20/23 02/20/23 History (Ensure oral liquid) levothyroxine 50 mcg tablet 50 mcg PO DAILYBB 02/20/23 02/20/23 History polyethylene glycol 3350 17 17 g PO DAILY 02/20/23 02/20/23 History gram/dose oral powder (Miralax) vitamin E 1 applic topical BID 02/20/23 02/20/23 History Patient History Medical History Cirrhosis of liver Colon cancer Constipation COPD (chronic obstructive pulmonary disease) Esophageal varices without bleeding HCV (hepatitis C virus) Hearing loss Hyperlipidemia Hypertension Hypothyroidism Inmate in correctional facility Low back pain Malignant neoplasm Thrombocytopenia Surgical History History of cataract surgery Family History Other Unknown family medical history Social History Smoking Status: Former smoker Second Hand Exposure: No; Do You Dip or Chew Tobacco: No; Hx Alcohol Use: No Hx Substance Use: No Preferred Language: Occitan Communication Ability: Effective Stock Replenisher Required: No Beliefs That Will Affect Care: None Current Living Situation: Other Current Living Situation Comment: [facility] Facility Other Information That Helps Us Care for You: No Feels Safe at Home: Yes Safety Concerns: Feels Safe At This Time Assistive Devices: Denture - Upper and Denture - Lower Review of Systems Review of Systems: All systems reviewed & are unremarkable except as noted in HPI & below Physical Exam Constitutional: + acute distress, + frail appearing and cooperative Eyes: PERRL, conjunctivae normal, anicteric sclerae ENMT: external ear and nose normal, oropharynx normal Neck: trachea midline, no thyromegaly Respiratory: normal respiratory effort, lungs clear to auscultation Cardiovascular: RRR, no murmur, no edema Heart Sounds: normal S1 and normal S2 Vessels: no JVD Gastrointestinal (Abdomen): Midline abdominal incision with surgical dressing without shadowing. Abdomen tender to palpation. Bowel sounds hypoactive. Abdomen nondistended Skin: no rashes, warm and dry Neurologic: PERRL, EOMI, accommodation nl, no face palsy, no dysarthria Psychiatric: A+Ox3, euthymic affect Results & Data Results & Data Vital Signs (Past 12 Hours) Vital Signs Temp Pulse Pulse Resp BP BP Pulse Ox 02/20/23 23:01 36.5 C 79 18 114/55 L 96 02/20/23 22:40 78 19 120/57 L 95 02/20/23 22:30 77 25 H 116/56 L 98 02/20/23 22:20 75 18 127/58 L 98 02/20/23 22:10 36.4 C L 77 20 126/65 97 02/20/23 20:01 83 20 117/60 90 02/20/23 19:00 83 20 128/63 90 02/20/23 16:21 82 25 H 131/58 L 93 02/20/23 18:44 83 18 129/63 90 02/20/23 16:41 84 02/20/23 16:38 92 02/20/23 16:27 37.2 C 83 18 131/58 L 92 O2 Del Method O2 Flow Rate 02/20/23 23:01 Oxymask 4 02/20/23 22:40 Oxymask 5 02/20/23 22:30 Oxymask 10 02/20/23 22:20 Oxymask 10 02/20/23 22:10 Oxymask 10 02/20/23 20:01 Room Air 02/20/23 19:00 Room Air 02/20/23 16:21 Room Air 02/20/23 18:44 Room Air 02/20/23 16:41 02/20/23 16:38 Room Air 02/20/23 16:27 Room Air Diagnostic Findings CT SCAN OF THE ABDOMEN AND PELVIS WITH IV CONTRAST CLINICAL HISTORY: Generalized abdominal pain. COMPARISON STUDY: Abdominal CT dated 04/23/2022. TECHNIQUE: Following the IV administration of 92 cc of Optiray 320, CT scan of the abdomen and pelvis is performed from the lung bases to the proximal femora. Images are reviewed in the axial, sagittal, and coronal planes. IV contrast was administered without complication. A dose lowering technique was utilized adhering to the principles of ALARA. CT DOSE: 973.54 mGy.cm FINDINGS: Lung bases: The heart is top normal in size and without pericardial effusion. There are small left and trace right pleural effusions. Extensive/multifocal pulmonary metastatic disease is seen throughout both lung bases. The largest nodule is seen at the left lung base on image #23 measures 15 mm. Intralobular septal thickening is seen at both lung bases and suggest fluid overload. There are esophageal varices. Liver: The contrast-enhanced liver is cirrhotic in morphology and heterogeneous in attenuation. There is hypertrophy of the left lobe and nodularity of the surface contour. There is no intrahepatic biliary ductal dilatation. The hepatic veins and portal veins are patent. There is evidence of multifocal hepatic metastatic disease. The largest lesion is seen in the right lobe on image #71 and measures 2.6 cm. A large pocket of gas is seen within the left lobe of the liver on image #95 an measures up to 4.6 cm. Gallbladder: Unremarkable. Spleen: The spleen is markedly enlarged measuring 19.2 cm in length. There are perigastric and perisplenic varices. Pancreas: Unremarkable. Adrenal glands: Left adrenal metastases are new from previous. These measure up to 1.9 cm. The right adrenal gland is normal in appearance. Kidneys: The contrast enhanced kidneys are normal in size and without hydronephrosis. The kidneys enhance symmetrically. There is a 3 mm nonobstructing left renal calculus. A 3.7 cm exophytic cyst is again seen arising from the left lower pole. Additional scattered subcentimeter cortical hypodensities likely represents cysts but too small for definitive characteriza tion. Abdominal vasculature: The abdominal aorta is normal in course and caliber noting advanced atherosclerotic calcification. Bowel: There is no bowel obstruction. A large mass lesion is again seen at the base of the cecum. There is evidence of colonic perforation. A large pocket of extraluminal stool is seen between the cecum and bladder on axial image #278. This measures 7.5 x 6.5 cm. Wall thickening of the left colon is likely related to adjacent inflammation. Peritoneum: Intraperitoneal free air is seen below the diaphragm (axial image #75). There is a small volume of perihepatic ascites. This ascitic fluid is also seen in the right paracolic gutter extending into the pelvis. There is trace free fluid tracking along the mesentery. Lymphadenopathy: There is metastatic retroperitoneal lymphadenopathy. A left periaortic shahzad aggregate on image #179 and measures 2.2 x 1.6 cm. A left iliac chain node on image #221 measures 1.7 x 1.1 cm. Pelvic viscera: The prostate gland is mildly enlarged and heterogeneous. Asymmetric bladder wall thickening is seen superiorly on the right. This is likely secondary to adjacent inflammation/abscess. Skeletal structures: The skeletal structures are osteopenic. There is a large osteoblastic metastasis within the right iliac wing is seen on image #277 with associated periostitis. There is also a lesion within the left sacral ala on image #231. Soft tissues: The patient is cachectic. IMPRESSION: 1. Again seen is a large mass lesion at the base of the cecum, likely representing a colonic neoplasm. 2. There is evidence of cecal perforation, with a large volume of extraluminal stool/abscess between the base of the cecum and the bladder. 3. There is intraperitoneal free air, abdominopelvic ascites, and evidence of peritonitis. 4. There is evidence of extensive/multifocal metastatic disease. 5. There is extensive pulmonary metastatic disease, multifocal hepatic metastatic disease, left adrenal metastases, metastatic retroperitoneal and iliac chain lymphadenopathy, and osteoblastic metastatic disease. 6. Asymmetric right-sided bladder wall thickening is likely related to adjacent stool/inflammation. 7. Small left and trace right pleural effusions. 8. There is a 4.6 cm largely gas-containing collection in the left lobe of the liver. Hepatic abscess is not excluded. 9. Cirrhotic liver morphology. 10. Marked splenomegaly, esophageal varices, and upper abdominal varices indicate portal hypertension. 11. Left-sided nephrolithiasis. 12. Additional findings above. ACT 112: Negative or not required by law. Electronically signed by: Valente Lynn M.D. 02/20/2023 6:39 PM Coding Level of Care Code 35373 IN/OBS CONSULT LVL 4,60M Diagnoses Cecum perforation K35.32 Intra-abdominal abscess K65.1 Hypertension I10 Hypothyroidism E03.9 COPD (chronic obstructive pulmonary disease) J44.9 Metastatic colon cancer to liver C18.9; C78.7 Cirrhosis of liver K74.60 Time Spent (min) 50
[2023-02-21] MEDS ORDERED: HYDROmorphone INJ 0.5 MG/0.5 ML SYR IV STA (00:27)
[2023-02-21] MEDS: ICU Protocol for HYPERglycemia SCH ×5 (00:41→12:00)
[2023-02-21] MEDS: MoRPHine SULFATE 4 MG/ML 1 ML CARP\\VIAL IV PRN ×2 (02:50→06:34)
[2023-02-21] MEDS: LACTATED RINGER'S 1,000 ML IV SCH ×4 (02:52→21:34)
[2023-02-21 02:59] LABS: Appearance Urine Cloudy (Clear); Bacteria Urine Automated Negative (Negative); Blood Urine Trace (Negative); Color Urine Dark Yellow; Glucose Urine UA Negative (Negative); Ketones Urine Negative (Negative); Leukocyte Esterase Urine Negative (Negative); Nitrite Urine Positive (Negative); Protein Urine 1+ (Negative); Specific Gravity Urine > 1.045 (1.000-1.030); Urobilinogen Urine Positive (Negative)
[2023-02-21 03:03] LABS: Bilirubin Urine 2+ (Negative)
[2023-02-21 05:46] LABS: Basophils # (auto) 0.04 K/uL (0-0.2); Basophils % (auto) 0.5 %; Eosinophils # (auto) 0.01 K/uL (0-0.50); Eosinophils % (auto) 0.1 %; Hemoglobin 12.4 g/dl (14.0-18.0); Immature Granulocytes # (auto) 0.04 K/uL (0.01-0.20); Immature Granulocytes % (auto) 0.5 %; Lymphocytes % (auto) 6.6 %; Mean Corpuscular Hemoglobin 30.3 pg (25.0-34.0); Mean Corpuscular Hgb Conc 33.5 g/dL (32.0-36.0); Mean Corpuscular Volume 90.5 fL (80.0-100.0); Mean Platelet Volume 10.6 fL (9.4-12.4); Monocytes # (auto) 0.47 K/uL (0.11-0.59); Monocytes % (auto) 6.3 %; Neutrophils # (auto) 6.46 K/uL (1.40-6.50); Platelet Count 92 K/uL (130-400); RDW Coefficient of Variation 13.2 % (11.5-14.5); Red Blood Count 4.09 M/uL (4.70-6.10); White Blood Count 7.52 K/ul (4.8-10.8)
[2023-02-21 06:02] LABS: Albumin Level 2.3 gm/dl (3.4-5.0); Bilirubin Direct 1.4 mg/dl (0-0.2); Bilirubin,Total 2.2 mg/dl (0.2-1.0); Total Protein 4.3 gm/dl (6.0-8.3)
[2023-02-21] MEDS ORDERED: LACTATED RINGER'S 500 ML IV ONE (06:14)
[2023-02-21 07:23] LABS: BUN Creatinine Ratio 41.4 (10-20); Calcium 8.1 mg/dl (8.6-10.3); Creatinine Clr Calc Pharmacy 84.8 ml/min; Est GFR (African American) 104.8 ml/min; Est GFR (Non-African American) 90.4 ml/min; Potassium 3.7 mmol/L (3.5-5.1)
[2023-02-21] MEDS ORDERED: HYDROmorphone INJ 1 MG/ML SYRINGE IM PRN (07:41)
[2023-02-21] MEDS: PIPERACILLIN/TAZOBACTAM 4.5 GM in DEXTROSE 5% 100 ML IV SCH ×3 (07:43→23:26)
--- NOTE | 2023-02-21 08:48 | Critical Care Progress Note ---
Date of Service February 21, 2023 Assessment & Plan (1) Cecum perforation: Plan: Impression: 77-year-old male with metastatic colon cancer presents to the ICU postop following perforation of the cecum when she underwent exploratory laparotomy with resection. Neuro - [facility] ICU: Negative Cardiac - Currently patient is hemodynamically stable. -We will hold home dose antihypertensives for now. -Sinus rhythm on monitor. - Continuous monitoring on telemetry. Respiratory - COPDstable. DuoNebs as needed -Continuous monitoring on pulse ox GI - Perforated cecumsecondary to progressive metastatic colon cancer. Now status post ex lap with resection and anastomosis per general surgery -Admitted to ICU for close monitoring postop. Remains stable at this time -N.p.o. for now -Management per general surgery Cirrhosispatient with history of hepatitis C, also has metastatic disease to the liver. Has known varices -Current meld of 16 -Resume lactulose when taking p.o. -Trend LFTs RENAL/LYTES - Creatinine within normal limits, monitor routine BMPs and replete electrolytes as indicated LR at 125 - Strict I's and O's ENDO - Hypothyroidismhold Synthroid for now HEME - H&H stable, monitor routine CBC Thrombocytopeniastable. Monitor for now ID - Sepsis?No leukocytosis, lactic acid within normal limits, afebrile. We will continue with empiric Zosyn for now LINES/IV ACCESS - Peripheral IVs DVT PROPHYLAXIS - SCDs, hold anticoagulation following surgery CODE STATUS: Full code. Palliative care consult pending. Patient is stable for downgrade out of the ICU. (2) Intra-abdominal abscess: (3) Hypertension: (4) Hypothyroidism: (5) COPD (chronic obstructive pulmonary disease): (6) Metastatic colon cancer to liver: (7) Cirrhosis of liver: Admission and Anticipated Discharge Date Admission Date: February 20, 2023 Subjective Patient seen and examined. Continues to complain of severe abdominal pain. NG tube placed. Security guards at bedside. Denies any chest pain or shortness of breath. Review of Systems Review of Systems: All systems reviewed & are unremarkable except as noted in HPI & below Physical Exam Constitutional: + acute distress, + frail appearing and cooperative Eyes: PERRL, conjunctivae normal, anicteric sclerae ENMT: external ear and nose normal, oropharynx normal Neck: trachea midline, no thyromegaly Respiratory: normal respiratory effort, lungs clear to auscultation Cardiovascular: RRR, no murmur, no edema Heart Sounds: normal S1 and normal S2 Vessels: no JVD Gastrointestinal (Abdomen): Midline abdominal incision with surgical dressing without shadowing. Abdomen tender to palpation. Bowel sounds hypoactive. Abdomen nondistended Skin: no rashes, warm and dry Neurologic: PERRL, EOMI, accommodation nl, no face palsy, no dysarthria Psychiatric: A+Ox3, euthymic affect Results & Data Results & Data Vital Signs (Past 12 Hours) Vital Signs Temp Pulse Pulse Resp BP BP Pulse Ox 02/21/23 06:00 37.6 C H 02/21/23 04:00 37 C 02/21/23 06:43 102/49 L 02/21/23 06:43 82 14 94 02/21/23 06:40 82 12 95 02/21/23 06:30 83 10 L 93 02/21/23 06:20 85 17 95 02/21/23 06:13 85 19 95 02/21/23 06:13 107/47 L 02/21/23 06:10 84 14 95 02/21/23 06:10 97/51 L 02/21/23 06:00 85 18 95 02/21/23 05:50 85 18 94 02/21/23 05:43 96/51 L 02/21/23 05:43 85 14 93 02/21/23 05:40 85 26 H 96 02/21/23 05:30 86 16 95 02/21/23 05:20 85 17 95 02/21/23 05:13 110/64 02/21/23 05:13 85 13 93 02/21/23 05:10 85 12 94 02/21/23 05:00 85 12 95 02/21/23 04:50 85 15 94 02/21/23 04:43 101/47 L 02/21/23 04:43 85 22 93 02/21/23 04:40 85 16 93 02/21/23 04:30 85 12 95 02/21/23 04:20 85 11 L 94 02/21/23 04:13 85 11 L 95 02/21/23 04:13 96/51 L 02/21/23 04:10 84 12 94 02/21/23 04:00 83 11 L 94 02/21/23 03:50 84 9 L 93 02/21/23 03:48 103/50 L 02/21/23 03:48 83 24 94 02/21/23 03:45 100/50 L 02/21/23 03:45 84 16 95 02/21/23 03:43 101/51 L 02/21/23 03:43 84 22 92 02/21/23 03:40 85 18 94 02/21/23 03:38 86 20 95 02/21/23 03:38 96/60 L 02/21/23 03:33 99/53 L 02/21/23 03:33 85 11 L 94 02/21/23 03:31 98/52 L 02/21/23 03:31 85 10 L 92 02/21/23 03:30 85 13 95 02/21/23 03:29 81/50 L 02/21/23 03:29 85 22 94 02/21/23 03:28 74/48 L 02/21/23 03:28 85 16 95 02/21/23 03:23 98/54 L 02/20/23 23:53 50 L 02/21/23 00:00 36.6 C 02/21/23 02:53 88 21 91 02/21/23 02:53 99/48 L 02/21/23 02:50 89 19 91 02/21/23 02:48 110/53 L 02/21/23 02:48 88 13 94 02/21/23 02:43 104/50 L 02/21/23 02:43 90 22 93 02/21/23 02:40 89 22 94 02/21/23 02:39 107/50 L 02/21/23 02:39 89 17 95 02/21/23 02:34 111/50 L 02/21/23 02:34 88 14 94 02/21/23 02:30 89 13 94 02/21/23 02:28 118/51 L 02/21/23 02:28 90 15 94 02/21/23 02:23 118/55 L 02/21/23 02:23 91 H 13 91 02/21/23 02:20 90 14 91 02/21/23 02:18 117/56 L 02/21/23 02:18 89 16 91 02/21/23 02:14 106/58 L 02/21/23 02:14 90 22 93 02/21/23 02:10 90 15 90 06/23 02:08 90 15 90 02/21/23 02:08 116/54 L 02/21/23 02:03 114/52 L 02/21/23 02:03 88 16 92 02/21/23 02:00 89 14 92 02/21/23 01:58 116/55 L 02/21/23 01:58 88 15 93 02/21/23 01:53 116/53 L 02/21/23 01:53 88 14 90 02/21/23 01:50 87 15 93 02/21/23 01:48 108/49 L 02/21/23 01:48 87 16 92 02/21/23 01:43 117/51 L 02/21/23 01:43 88 14 91 02/21/23 01:40 87 15 93 02/21/23 01:38 86 15 93 02/21/23 01:38 118/53 L 02/21/23 01:33 85 14 93 02/21/23 01:33 104/52 L 02/21/23 01:30 86 15 93 02/21/23 01:28 112/54 L 02/21/23 01:28 86 17 95 02/21/23 01:23 120/55 L 02/21/23 01:23 86 14 95 02/21/23 01:20 85 15 95 02/21/23 01:18 113/55 L 02/21/23 01:18 85 14 95 02/21/23 00:00 02/20/23 23:55 83 02/20/23 23:01 36.5 C 79 18 114/55 L 96 02/20/23 22:40 78 19 120/57 L 95 02/20/23 22:30 77 25 H 116/56 L 98 02/20/23 22:20 75 18 127/58 L 98 02/20/23 22:10 36.4 C L 77 20 126/65 97 O2 Del Method O2 Flow Rate 02/21/23 06:00 02/21/23 04:00 02/21/23 06:43 02/21/23 06:43 02/21/23 06:40 02/21/23 06:30 02/21/23 06:20 02/21/23 06:13 02/21/23 06:13 02/21/23 06:10 02/21/23 06:10 02/21/23 06:00 02/21/23 05:50 02/21/23 05:43 02/21/23 05:43 02/21/23 05:40 02/21/23 05:30 02/21/23 05:20 02/21/23 05:13 02/21/23 05:13 02/21/23 05:10 02/21/23 05:00 02/21/23 04:50 02/21/23 04:43 02/21/23 04:43 02/21/23 04:40 02/21/23 04:30 02/21/23 04:20 02/21/23 04:13 02/21/23 04:13 02/21/23 04:10 02/21/23 04:00 02/21/23 03:50 02/21/23 03:48 02/21/23 03:48 02/21/23 03:45 02/21/23 03:45 02/21/23 03:43 02/21/23 03:43 02/21/23 03:40 02/21/23 03:38 02/21/23 03:38 02/21/23 03:33 02/21/23 03:33 02/21/23 03:31 02/21/23 03:31 02/21/23 03:30 02/21/23 03:29 02/21/23 03:29 02/21/23 03:28 02/21/23 03:28 02/21/23 03:23 02/20/23 23:53 02/21/23 00:00 02/21/23 02:53 02/21/23 02:53 02/21/23 02:50 02/21/23 02:48 02/21/23 02:48 02/21/23 02:43 02/21/23 02:43 02/21/23 02:40 02/21/23 02:39 02/21/23 02:39 02/21/23 02:34 02/21/23 02:34 02/21/23 02:30 02/21/23 02:28 02/21/23 02:28 02/21/23 02:23 02/21/23 02:23 02/21/23 02:20 02/21/23 02:18 02/21/23 02:18 02/21/23 02:14 02/21/23 02:14 02/21/23 02:10 02/21/23 02:08 02/21/23 02:08 02/21/23 02:03 02/21/23 02:03 02/21/23 02:00 02/21/23 01:58 02/21/23 01:58 02/21/23 01:53 02/21/23 01:53 02/21/23 01:50 02/21/23 01:48 02/21/23 01:48 02/21/23 01:43 02/21/23 01:43 02/21/23 01:40 02/21/23 01:38 02/21/23 01:38 02/21/23 01:33 02/21/23 01:33 02/21/23 01:30 02/21/23 01:28 02/21/23 01:28 02/21/23 01:23 02/21/23 01:23 02/21/23 01:20 02/21/23 01:18 02/21/23 01:18 02/21/23 00:00 Oxymask 3 02/20/23 23:55 02/20/23 23:01 Oxymask 4 02/20/23 22:40 Oxymask 5 02/20/23 22:30 Oxymask 10 02/20/23 22:20 Oxymask 10 02/20/23 22:10 Oxymask 10 Coding Level of Care Code 15034 SUB INP/OBS CARE MIN Diagnoses Cecum perforation K35.32 Intra-abdominal abscess K65.1 Hypertension I10 Hypothyroidism E03.9 COPD (chronic obstructive pulmonary disease) J44.9 Metastatic colon cancer to liver C18.9; C78.7 Cirrhosis of liver K74.60
--- NOTE | 2023-02-21 08:58 | Palliative Care Consultation ---
Date of Consultation February 21, 2023 Assessment & Plan (1) Palliative care by specialist: Met with patient and provided overview of Palliative Medicine, a subspecialty that provides specialized medical care for people living with a serious illness by offering a focus on quality of life. Palliative Medicine is often conflated with hospice: I advised patient/family that Palliative and hospice can be partners but we are not the same. It is important to understand the difference so that we may be informed, and not afraid. Palliative Medicine works to improve QOL through reduction of symptom burden/more control over their illness, for both the patient and family. Palliative medicine clinicians are board certified, specially-trained and another member of the patient's medical care team. We often provide an extra layer of support because our care is based on the needs of the patient, not the prognosis; as such, it's appropriate at any age/advancing stage of a serious illness and can be provided along with curative treatment. Palliative Medicine clinicians are also trained in advanced communication methodologies, to facilitate complex discussions about advanced illness planning, which are needed to help assure that the treatment choices match the patient's goals, aka delivering Goal Concordant care. Finally, we discussed that hospice is a visiting nurse service that focuses on care delivered at the very end of life for patients with terminal illness, with life expectancy less than 6 month. (2) Advanced care planning/counseling discussion: Called nursing home, spoke Luis, she tells me is a clinical coordinator but she is not a nurse, KAT or physician. She shares that following December 2022 admission, pt returned to nursing home and decided he did not want further cancer directed therapy and signed paperwork specifically refusing further cancer directed medical treatment. She was unable to locate any ACP or code status discussions in their internal documents. Patient has been expressing no code/DNR-DNI preference to ICU staff. I met with pt face to face at bedside for 25min. His guards x2 were also present. He shares reasonable insight into his disease, noting that he has a metastatic, incurable cancer that worsened in spite of chemotherapy. He knows it is not curable. He does not want more cancer directed therapy. He also tells me he knows his time is limited. He feels he is now simply waiting to . He understands the cancer worsening and causing more complications such as this perforation are signs that time may be running short but he has accepted this and says he would rather focus on having more pain relief so these finals weeks/months are not as painful/miserable. We discussed comfort care in the hospital and then back in nursing home. He is a greeable to both. He tells me comfort care at nursing home would be in the [facility] and he is happy to return there. He is hopeful that as he heals a bit from surgery he can regain some physical strength so he can still enjoy walking around but he then states he understands this might not happen given how sick he is. He tells me there is no one needed to be called. Nursing notes pt earlier spoke of his family and that he has been able to have a visit with them not too long ago and feels that is as resolved as it is going to be. He denies feeling spiritually disconnected and notes he is not zoroastrianism at baseline. He is not afraid to and accepts his mortality is nearing but fin himself preoccupied with worry about the suffering he may endure in the process of dying. (3) Cancer related pain: For severe cancer related abd pain, will begin trial of Dilaudid 0.5mg IV q15min prn and Dilaudid 1mg IV q1h prn very severe pain unrelieved by lower dose. I have stopped other opioids including IV Morphine. 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 Following December 2022 admission, he decided to stop all cancer directed care. * He is seeking a more comfort focused plan of care and does not want more invas yandel interventions etc. * He would like more pain relief, feels he has been suffering for months with cancer related pain. * He elects DNR/DNI. Code order changed. * He would like a plan of care more focused on comfort. * I reviewed case with Dr Philip who is in agreement. I briefly discussed with oncology who are also in agreement. * I updated surgery/Rosamaria Bacon and requested trial of ice chips to clears, clamping NGT - per nursing home clinical coordinator, he cannot return with an NGT. * I have contacted nursing home healthcare estate administrator and provided the update as noted above. They will accept him back on comfort care when stable for dc - he cannot exceed oxygen 5lpm NC and cannot be on IV opioids. They are aware he elected no code. They will complete their DOC code status forms with pt upon his return and will continue to honor his DNR/DNI decision. * Per [facility] healthcare estate administrator: Inmates who are decisional are able to make their own/autonomous healthcare decisions and the nursing home will honor the inmate's choices. If inmate lacks decisional capacity their designated NOK becomes surrogate decision maker and if they do not have a designated NOOK then the nursing home healthcare estate administrator with the assistance of DOC Legal will have to submit for emergency guardianship which can take 1-3 business days. For Mr. Gomez, he has decisional capacity and can make his own decisions. * TS 100 min Thank you for allowing us to participate in the ongoing care of this patient. Please don't hesitate to call or page with any additional concerns. Dr. Pretty Duval DNP Director, Palliative Care History of Present Illness Reason for Consultation: met cancer, [facility] Attending Physician: Hira Banks MD History of Present Illness Mario is a 77yo male admitted 02/20/23 with 3 week hx worsening abd pain and distension with anorexia, n/v and dyspnea. Imaging CT in ED revealed cecal mass with localized perf, +abscess w/free air --> "cecal perforation with large volume of extraluminal stool/abscess between the base of the cecum and the bladder. Also with extensive metastatic disease noted." Patient has 2 synchronous primary cancers: well diff invasive adenoca cecum and invasive adenoca with mucinous features of the sigmoid colon. Oncology clinic consult Jul 2022 as noted below: He has a known hx of met cecal ca to liver and lungs currently receiving palliative chemo. Additional med hx includes HCV with cirrhosis COPD/smoking related, hypothyroid, HTN. He was last admitted 12/15 to 12/17/22 with fever -Tmax 102.2, SpO2's in the 80s, at that time found to be pancytopenic, PCT 2.4, treated with IV Zosyn and vancomycin. Pt is seen bedside with 2 guards present. Mario states: "I didn't even want the surgery but it felt like everyone felt I should do it, but I am thinking what's the point, I am dying anyway and they can't cure the cancer." He went on to state "I am not doing any more chemo, it was pointless. I know the end is coming, just don't know when I guess." Pt states pain is severe. Feels it may be slightly less than before he had surgery. States he has some relief with pain meds but not lasting. Says he was on chronic pain meds for years but cannot recall what he was taking. Does admit to prior hx substance and nicotine abuse but has been incarcerated a very long time. Presently, +NGT noted. Denies active n/v but states he has not taken much PO beyond occasional mouth swab soaked in cool water. NGT output is clear/slightly bile tinged at time of my visit. A new container is noted to be in place. Allergies Allergy/AdvReac Type Severity Reaction Status Date / Time nitrofurantoin Allergy Unknown LISTED ON Verified 02/20/23 18:25 [From Macrobid] MEDICAL RECORD sodium chloride Allergy Unknown CONTRAINDICATED Verified 02/20/23 18:25 [From [place] Nasal] MEDICATION Home Medications Medication Instructions Recorded Confirmed Type carvedilol 3.125 mg tablet 3.125 mg PO BID 04/13/21 02/20/23 History diltiazem HCl 240 mg capsule,24 240 mg PO DAILY 04/13/21 02/20/23 History hr,extended release lactulose 10 gram/15 mL oral 20 g PO BID 06/30/22 02/20/23 History solution tamsulosin 0.4 mg capsule 0.4 mg PO DAILY 06/30/22 02/20/23 History ascorbic acid (vitamin C) 500 mg 500 mg PO DAILY 08/06/22 02/20/23 History tablet ferrous gluconate 324 mg (38 mg 324 mg PO DAILY 08/06/22 02/20/23 History iron) tablet albuterol sulfate 90 mcg/actuation 2 puff inhalation TIDR PRN 12/17/22 02/20/23 Rx aerosol inhaler (Ventolin HFA) shortness of breath or wheezing #8.5 grams food supplemt, lactose-reduced 1 ea PO BID 02/20/23 02/20/23 History (Ensure oral liquid) levothyroxine 50 mcg tablet 50 mcg PO DAILYBB 02/20/23 02/20/23 History polyethylene glycol 3350 17 17 g PO DAILY 02/20/23 02/20/23 History gram/dose oral powder (Miralax) vitamin E 1 applic topical BID 02/20/23 02/20/23 History Patient History Medical History (Updated 02/21/23 @ 12:39 by Pretty Duval DNP) 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 Advanced care planning/counseling discussion Cancer related pain Cirrhosis of liver Colon cancer Constipation COPD (chronic obstructive pulmonary disease) Esophageal varices without bleeding HCV (hepatitis C virus) Hearing loss Hyperlipidemia Hypertension Hypothyroidism Inmate in correctional facility Low back pain Malignant neoplasm Palliative care by specialist Thrombocytopenia Surgical History History of cataract surgery Family History Other Unknown family medical history Social History Smoking Status: Former smoker Second Hand Exposure: No; Do You Dip or Chew Tobacco: No; Hx Alcohol Use: No Hx Substance Use: No Preferred Language: Urdu Communication Ability: Effective Harness Builder Required: No Beliefs That Will Affect Care: None Current Living Situation: Other Current Living Situation Comment: Correctional Facility Other Information That Helps Us Care for You: No Feels Safe at Home: Yes Safety Concerns: Feels Safe At This Time Assistive Devices: Denture - Upper and Denture - Lower Review of Systems Review of Systems: All systems reviewed & are unremarkable except as noted in Subjective Physical Exam Constitutional: + acute distress, + thin, + frail appearing, cooperative and + underweight Eyes: PERRL, conjunctivae normal, anicteric sclerae ENMT: dentition poor. +NGT. MM dry. lips slightly cracked. raspy vocal quality. Neck: trachea midline, no thyromegaly Respiratory: increased effort. mild conversational dyspnea. use of accessory muscles noted. bilateral crackles with few rhonchi. diminished overall. Cardiovascular: tachy s1s2, no gross JVD noted Gastrointestinal (Abdomen): marked tenderness midline and to the left with light palpation. mildly distended. bowel sounds very subtly noted, no high pitched sounds. liver edge palpable and tender with examination. surgical dressing clean and dry Musculoskeletal: shackles BLE, generalized moderate weakness. sociology teacher intact. no BL edema noted. Skin: pale. cool. mild nailbed whiteness noted. numerous tattoos across chest, nek, BUE, BLE, abdomen Neurologic: AAOx3. Psychiatric: Orientation: oriented x 3 and cooperative Eye Contact: + fair eye contact Speech: normal rate/rhythm/volume of speech Affect: + depressed affect Mood: + anxious mood Estimated Intelligence: consistent w ith education level Insight: good insight Judgment: good judgement Results & Data Vital Signs (Past 12 Hours) Vital Signs Temp Pulse Pulse Resp BP BP Pulse Ox 02/21/23 06:00 37.6 C H 02/21/23 04:00 37 C 02/21/23 06:43 102/49 L 02/21/23 06:43 82 14 94 02/21/23 06:40 82 12 95 02/21/23 06:30 83 10 L 93 02/21/23 06:20 85 17 95 02/21/23 06:13 85 19 95 02/21/23 06:13 107/47 L 02/21/23 06:10 84 14 95 02/21/23 06:10 97/51 L 02/21/23 06:00 85 18 95 02/21/23 05:50 85 18 94 02/21/23 05:43 96/51 L 02/21/23 05:43 85 14 93 02/21/23 05:40 85 26 H 96 02/21/23 05:30 86 16 95 02/21/23 05:20 85 17 95 02/21/23 05:13 110/64 02/21/23 05:13 85 13 93 02/21/23 05:10 85 12 94 02/21/23 05:00 85 12 95 02/21/23 04:50 85 15 94 02/21/23 04:43 101/47 L 02/21/23 04:43 85 22 93 02/21/23 04:40 85 16 93 02/21/23 04:30 85 12 95 02/21/23 04:20 85 11 L 94 02/21/23 04:13 85 11 L 95 02/21/23 04:13 96/51 L 02/21/23 04:10 84 12 94 02/21/23 04:00 83 11 L 94 02/21/23 03:50 84 9 L 93 02/21/23 03:48 103/50 L 02/21/23 03:48 83 24 94 02/21/23 03:45 100/50 L 02/21/23 03:45 84 16 95 02/21/23 03:43 101/51 L 02/21/23 03:43 84 22 92 02/21/23 03:40 85 18 94 02/21/23 03:38 86 20 95 02/21/23 03:38 96/60 L 02/21/23 03:33 99/53 L 02/21/23 03:33 85 11 L 94 02/21/23 03:31 98/52 L 02/21/23 03:31 85 10 L 92 02/21/23 03:30 85 13 95 02/21/23 03:29 81/50 L 02/21/23 03:29 85 22 94 02/21/23 03:28 74/48 L 02/21/23 03:28 85 16 95 02/21/23 03:23 98/54 L 02/20/23 23:53 50 L 02/21/23 00:00 36.6 C 02/21/23 02:53 88 21 91 02/21/23 02:53 99/48 L 02/21/23 02:50 89 19 91 02/21/23 02:48 110/53 L 02/21/23 02:48 88 13 94 02/21/23 02:43 104/50 L 02/21/23 02:43 90 22 93 02/21/23 02:40 89 22 94 02/21/23 02:39 107/50 L 02/21/23 02:39 89 17 95 02/21/23 02:34 111/50 L 02/21/23 02:34 88 14 94 02/21/23 02:30 89 13 94 02/21/23 02:28 118/51 L 02/21/23 02:28 90 15 94 02/21/23 02:23 118/55 L 02/21/23 02:23 91 H 13 91 02/21/23 02:20 90 14 91 02/21/23 02:18 117/56 L 02/21/23 02:18 89 16 91 06/19/23 02:14 106/58 L 02/21/23 02:14 90 22 93 02/21/23 02:10 90 15 90 02/21/23 02:08 90 15 90 02/21/23 02:08 116/54 L 02/21/23 02:03 114/52 L 02/21/23 02:03 88 16 92 02/21/23 02:00 89 14 92 02/21/23 01:58 116/55 L 02/21/23 01:58 88 15 93 02/21/23 01:53 116/53 L 02/21/23 01:53 88 14 90 02/21/23 01:50 87 15 93 02/21/23 01:48 108/49 L 02/21/23 01:48 87 16 92 02/21/23 01:43 117/51 L 02/21/23 01:43 88 14 91 02/21/23 01:40 87 15 93 02/21/23 01:38 86 15 93 02/21/23 01:38 118/53 L 02/21/23 01:33 85 14 93 02/21/23 01:33 104/52 L 02/21/23 01:30 86 15 93 02/21/23 01:28 112/54 L 02/21/23 01:28 86 17 95 02/21/23 01:23 120/55 L 02/21/23 01:23 86 14 95 02/21/23 01:20 85 15 95 02/21/23 01:18 113/55 L 02/21/23 01:18 85 14 95 02/21/23 00:00 02/20/23 23:55 83 02/20/23 23:01 36.5 C 79 18 114/55 L 96 02/20/23 22:40 78 19 120/57 L 95 02/20/23 22:30 77 25 H 116/56 L 98 02/20/23 22:20 75 18 127/58 L 98 02/20/23 22:10 36.4 C L 77 20 126/65 97 O2 Del Method O2 Flow Rate 02/21/23 06:00 02/21/23 04:00 02/21/23 06:43 02/21/23 06:43 02/21/23 06:40 02/21/23 06:30 02/21/23 06:20 02/21/23 06:13 02/21/23 06:13 02/21/23 06:10 02/21/23 06:10 02/21/23 06:00 02/21/23 05:50 02/21/23 05:43 02/21/23 05:43 02/21/23 05:40 02/21/23 05:30 02/21/23 05:20 02/21/23 05:13 02/21/23 05:13 02/21/23 05:10 02/21/23 05:00 02/21/23 04:50 02/21/23 04:43 02/21/23 04:43 02/21/23 04:40 02/21/23 04:30 02/21/23 04:20 02/21/23 04:13 02/21/23 04:13 02/21/23 04:10 02/21/23 04:00 02/21/23 03:50 02/21/23 03:48 02/21/23 03:48 02/21/23 03:45 02/21/23 03:45 02/21/23 03:43 02/21/23 03:43 02/21/23 03:40 02/21/23 03:38 02/21/23 03:38 02/21/23 03:33 02/21/23 03:33 02/21/23 03:31 02/21/23 03:31 02/21/23 03:30 02/21/23 03:29 02/21/23 03:29 02/21/23 03:28 02/21/23 03:28 02/21/23 03:23 02/20/23 23:53 02/21/23 00:00 02/21/23 02:53 02/21/23 02:53 02/21/23 02:50 02/21/23 02:48 02/21/23 02:48 02/21/23 02:43 02/21/23 02:43 02/21/23 02:40 02/21/23 02:39 02/21/23 02:39 02/21/23 02:34 02/21/23 02:34 02/21/23 02:30 02/21/23 02:28 02/21/23 02:28 02/21/23 02:23 02/21/23 02:23 02/21/23 02:20 02/21/23 02:18 02/21/23 02:18 02/21/23 02:14 02/21/23 02:14 02/21/23 02:10 02/21/23 02:08 02/21/23 02:08 02/21/23 02:03 02/21/23 02:03 02/21/23 02:00 02/21/23 01:58 02/21/23 01:58 02/21/23 01:53 02/21/23 01:53 02/21/23 01:50 02/21/23 01:48 02/21/23 01:48 02/21/23 01:43 02/21/23 01:43 02/21/23 01:40 02/21/23 01:38 02/21/23 01:38 02/21/23 01:33 02/21/23 01:33 02/21/23 01:30 02/21/23 01:28 02/21/23 01:28 02/21/23 01:23 02/21/23 01:23 02/21/23 01:20 02/21/23 01:18 02/21/23 01:18 02/21/23 00:00 Oxymask 3 02/20/23 23:55 02/20/23 23:01 Oxymask 4 02/20/23 22:40 Oxymask 5 02/20/23 22:30 Oxymask 10 02/20/23 22:20 Oxymask 10 02/20/23 22:10 Oxymask 10 Laboratory Results data reviewed Diagnostic Findings data reviewed PG Care Time/CCT Total # of Minutes Spent Total Time Spent: 105 Total Time Spent with Patient: Total time spent is greater than 50% in coordination of care (as documented) at patient's floor/unit and/or counseling patient: I spent 105 minutes overall addressing this case: 20 in medical data review/discussion with referring provider(s) and/or preparation for the visit 35 in direct interaction with the patient 25 Advance Care Planning/Goals of Care discussions as detailed above in note (must be >16min) 10 in subsequent review and synthesis of assessment and plan 15 in communicating with other providers regarding the patient's case: [] Prolonged Care Time Prolonged Care Time: Yes Advanced Care Planning 80459 Advanced Care Planning 30 [place] [address] IN/OBS CONSULT LVL 5,80M Patient Type New History Comprehensive Exam Comprehensive Medical Decision Making High Complexity Diagnoses Palliative care by specialist Z51.5 Advanced care planning/counseling discussion Z71.89 Cancer related pain G89.3 Abdominal pain R10.9 Cecum perforation K35.32 Metastatic colon cancer to liver C18.9; C78.7 Adenocarcinoma of cecum C18.0 Adenocarcinoma of sigmoid colon C18.7 COPD (chronic obstructive pulmonary disease) J44.9 Cirrhosis of liver K74.60 Hypothyroidism E03.9 Hypertension I10 Inmate in correctional facility Z65.1 Additional Codes Advanced Care Planning - 09795 Advanced Care Planning 30 Min: 95760 Advanced Care Planning 30 Min ([id number]) Prolonged Care Time - Prolonged Care Time: Yes ([id number])
--- NOTE | 2023-02-21 09:33 | Surgery Progress Note ---
Date of Service February 21, 2023 Assessment & Plan (1) Metastatic colon cancer to liver: (2) Cirrhosis of liver: (3) COPD (chronic obstructive pulmonary disease): (4) Hypertension: (5) Perforation of cecum: Plan POD # 1 s/p ex lap with right colectomy and primary anastomosis with drain insertion -vss, hemodynamically stable - moderate to severe postop pain - abdomen soft, generalized tenderness, no peritonitis - ciara drain with serosanguineous output Plan: Continue pain management as needed Continue IV zosyn Continue IV fluids Continue Roper continue ciara drain to bulb suction continue NGT to LIS Continue NPO , may have mouth swabs for dry mouth Incentive spirometry, SCDs Continue IV protonix appreciate ICU management palliative care consult pending to discuss goals of care, per patient has eaten in 4 weeks, may need to consider TPN but will await palliative care consult repeat am labs likely downgrade out of ICU to PCU today OOB to chair today Received update by Palliative medicine patient decided on comfort care only. Dr. Heath updated and will be attending given comfort care status. Okay to remove NGT and start ice chips. Would continue IV fluids , pain management as needed, antiemetics as needed, IV antiboitics, and ciara drain to bulb suction. Labs discontinued, can downgrade to med/surg given comfort measures. Dr. Garcia has seen and examined pt, agrees with above. Admission and Anticipated Discharge Date Admission Date: February 20, 2023 Subjective having moderate to severe generalized abdominal pain, pain medication helps no nausea no vomiting no chest pain or shortness of breath n flatus states he has not had an appetite or eating much for last 4 weeks Physical Exam Constitutional: WD/WN, vitals as above + frail appearing and cooperative; no acute distress, not ill appearing and not combative Respiratory: normal respiratory effort; no respiratory distress, no labored breathing and no retractions Chest (Breasts): Chest: + vascular access device or port Gastrointestinal (Abdomen): Inspection/Auscultation: abdomen normal to inspection, + abdominal surgical incision (covered with clean dry intact dressing, not inspected today), + abdominal surgical drain present ( serosanguineous) and + hypoactive bowel sounds; abdomen not distended and + abnormal bowel sounds Percussion/Palpation: + abdomen tender (generalized tenderness), + guarding (voluntary guarding with palpation) and abdomen soft; abdomen not rigid and abdomen not firm Skin: no rashes, warm and dry Psychiatric: Orientation: alert and oriented x 3 Results & Data Vital Signs (Past 12 Hours) Vital Signs Temp Pulse Pulse Resp BP BP Pulse Ox 02/21/23 09:00 85 14 94 02/21/23 08:43 101/50 L 02/21/23 08:43 85 15 92 02/21/23 08:13 100/50 L 02/21/23 08:13 84 12 94 02/21/23 08:00 85 18 96 02/21/23 07:54 84 13 95 02/21/23 07:54 105/52 L 02/21/23 07:43 93/50 L 02/21/23 07:43 85 17 93 02/21/23 07:13 99/49 L 02/21/23 07:13 85 13 95 02/21/23 07:00 84 13 93 02/21/23 09:06 02/21/23 08:00 82 02/21/23 06:00 37.6 C H 02/21/23 04:00 37 C 02/21/23 06:43 102/49 L 02/21/23 06:43 82 14 94 02/21/23 06:40 82 12 95 02/21/23 06:30 83 10 L 93 02/21/23 06:20 85 17 95 02/21/23 06:13 85 19 95 02/21/23 06:13 107/47 L 02/21/23 06:10 84 14 95 02/21/23 06:10 97/51 L 02/21/23 06:00 85 18 95 02/21/23 05:50 85 18 94 02/21/23 05:43 96/51 L 02/21/23 05:43 85 14 93 02/21/23 05:40 85 26 H 96 02/21/23 05:30 86 16 95 02/21/23 05:20 85 17 95 02/21/23 05:13 110/64 02/21/23 05:13 85 13 93 02/21/23 05:10 85 12 94 02/21/23 05:00 85 12 95 02/21/23 04:50 85 15 94 02/21/23 04:43 101/47 L 02/21/23 04:43 85 22 93 02/21/23 04:40 85 16 93 02/21/23 04:30 85 12 95 02/21/23 04:20 85 11 L 94 02/21/23 04:13 85 11 L 95 02/21/23 04:13 96/51 L 02/21/23 04:10 84 12 94 02/21/23 04:00 83 11 L 94 02/21/23 03:50 84 9 L 93 02/21/23 03:48 103/50 L 02/21/23 03:48 83 24 94 02/21/23 03:45 100/50 L 02/21/23 03:45 84 16 95 02/21/23 03:43 101/51 L 02/21/23 03:43 84 22 92 02/21/23 03:40 85 18 94 02/21/23 03:38 86 20 95 02/21/23 03:38 96/60 L 02/21/23 03:33 99/53 L 02/21/23 03:33 85 11 L 94 02/21/23 03:31 98/52 L 02/21/23 03:31 85 10 L 92 02/21/23 03:30 85 13 95 02/21/23 03:29 81/50 L 02/21/23 03:29 85 22 94 02/21/23 03:28 74/48 L 02/21/23 03:28 85 16 95 02/21/23 03:23 98/54 L 02/20/23 23:53 50 L 02/21/23 00:00 36.6 C 02/21/23 02:53 88 21 91 02/21/23 02:53 99/48 L 02/21/23 02:50 89 19 91 02/21/23 02:48 110/53 L 02/21/23 02:48 88 13 94 02/21/23 02:43 104/50 L 02/21/23 02:43 90 22 93 02/21/23 02:40 89 22 94 02/21/23 02:39 107/50 L 02/21/23 02:39 89 17 95 02/21/23 02:34 111/50 L 02/21/23 02:34 88 14 94 02/21/23 02:30 89 13 94 02/21/23 02:28 118/51 L 02/21/23 02:28 90 15 94 02/21/23 02:23 118/55 L 02/21/23 02:23 91 H 13 91 02/21/23 02:20 90 14 91 02/21/23 02:18 117/56 L 02/21/23 02:18 89 16 91 02/21/23 02:14 106/58 L 02/21/23 02:14 90 22 93 02/21/23 02:10 90 15 90 02/21/23 02:08 90 15 90 02/21/23 02:08 116/54 L 02/21/23 02:03 114/52 L 02/21/23 02:03 88 16 92 02/21/23 02:00 89 14 92 02/21/23 01:58 116/55 L 02/21/23 01:58 88 15 93 02/21/23 01:53 116/53 L 02/21/23 01:53 88 14 90 02/21/23 01:50 87 15 93 02/21/23 01:48 108/49 L 02/21/23 01:48 87 16 92 02/21/23 01:43 117/51 L 02/21/23 01:43 88 14 91 02/21/23 01:40 87 15 93 02/21/23 01:38 86 15 93 02/21/23 01:38 118/53 L 02/21/23 01:33 85 14 93 02/21/23 01:33 104/52 L 02/21/23 01:30 86 15 93 02/21/23 01:28 112/54 L 02/21/23 01:28 86 17 95 02/21/23 01:23 120/55 L 02/21/23 01:23 86 14 95 02/21/23 01:20 85 15 95 02/21/23 01:18 113/55 L 02/21/23 01:18 85 14 95 02/21/23 00:00 02/20/23 23:55 83 02/20/23 23:01 36.5 C 79 18 114/55 L 96 02/20/23 22:40 78 19 120/57 L 95 02/20/23 22:30 77 25 H 116/56 L 98 02/20/23 22:20 75 18 127/58 L 98 02/20/23 22:10 36.4 C L 77 20 126/65 97 O2 Del Method O2 Flow Rate 02/21/23 09:00 Oxymask 3 02/21/23 08:43 02/21/23 08:43 02/21/23 08:13 02/21/23 08:13 02/21/23 08:00 02/21/23 07:54 02/21/23 07:54 02/21/23 07:43 02/21/23 07:43 Oxymask 3 02/21/23 07:13 02/21/23 07:13 02/21/23 07:00 02/21/23 09:06 Oxymask 3 02/21/23 08:00 02/21/23 06:00 02/21/23 04:00 02/21/23 06:43 02/21/23 06:43 02/21/23 06:40 02/21/23 06:30 02/21/23 06:20 02/21/23 06:13 02/21/23 06:13 02/21/23 06:10 02/21/23 06:10 02/21/23 06:00 02/21/23 05:50 02/21/23 05:43 02/21/23 05:43 02/21/23 05:40 02/21/23 05:30 02/21/23 05:20 02/21/23 05:13 02/21/23 05:13 02/21/23 05:10 02/21/23 05:00 02/21/23 04:50 02/21/23 04:43 02/21/23 04:43 02/21/23 04:40 02/21/23 04:30 02/21/23 04:20 02/21/23 04:13 02/21/23 04:13 02/21/23 04:10 02/21/23 04:00 02/21/23 03:50 02/21/23 03:48 02/21/23 03:48 02/21/23 03:45 02/21/23 03:45 02/21/23 03:43 02/21/23 03:43 02/21/23 03:40 02/21/23 03:38 02/21/23 03:38 02/21/23 03:33 02/21/23 03:33 02/21/23 03:31 02/21/23 03:31 02/21/23 03:30 02/21/23 03:29 02/21/23 03:29 02/21/23 03:28 02/21/23 03:28 02/21/23 03:23 02/20/23 23:53 02/21/23 00:00 02/21/23 02:53 02/21/23 02:53 02/21/23 02:50 02/21/23 02:48 02/21/23 02:48 02/21/23 02:43 02/21/23 02:43 02/21/23 02:40 02/21/23 02:39 02/21/23 02:39 02/21/23 02:34 02/21/23 02:34 02/21/23 02:30 02/21/23 02:28 02/21/23 02:28 02/21/23 02:23 02/21/23 02:23 02/21/23 02:20 02/21/23 02:18 02/21/23 02:18 02/21/23 02:14 02/21/23 02:14 02/21/23 02:10 02/21/23 02:08 02/21/23 02:08 02/21/23 02:03 02/21/23 02:03 02/21/23 02:00 02/21/23 01:58 02/21/23 01:58 02/21/23 01:53 02/21/23 01:53 02/21/23 01:50 02/21/23 01:48 02/21/23 01:48 02/21/23 01:43 02/21/23 01:43 02/21/23 01:40 02/21/23 01:38 02/21/23 01:38 02/21/23 01:33 02/21/23 01:33 02/21/23 01:30 02/21/23 01:28 02/21/23 01:28 02/21/23 01:23 02/21/23 01:23 02/21/23 01:20 02/21/23 01:18 02/21/23 01:18 02/21/23 00:00 Oxymask 3 02/20/23 23:55 06/18/23 23:01 Oxymask 4 02/20/23 22:40 Oxymask 5 02/20/23 22:30 Oxymask 10 02/20/23 22:20 Oxymask 10 02/20/23 22:10 Oxymask 10 Laboratory Results 02/21/23 02/21/23 02/21/23 Range/Units 06:44 06:09 05:28 WBC (4.8-10.8) K/ul RBC (4.70-6.10) M/uL Hgb (14.0-18.0) g/dl Hct (42.0-52.0) % MCV (80.0-100.0) fL MCH (25.0-34.0) pg MCHC (32.0-36.0) g/dL RDW Std Deviation (36.4-46.3) fL RDW Coeff of Jessica (11.5-14.5) % Plt Count (130-400) K/uL MPV (9.4-12.4) fL Immature Gran % (Auto) % Neut % (Auto) % Lymph % (Auto) % Izard % (Auto) % Eos % (Auto) % Baso % (Auto) % Neut # (Auto) (1.40-6.50) K/uL Lymph # (Auto) (1.2-3.4) K/uL Izard # (Auto) (0.11-0.59) K/uL Eos # (Auto) (0-0.50) K/uL Baso # (Auto) (0-0.2) K/uL Immature Gran # (Auto) (0.01-0.20) K/uL PT (9.0-12.0) Seconds INR (0.9-1.1) Sodium 137 (136-145) mmol/L Potassium 3.7 (3.5-5.1) mmol/L Chloride 107 (98-107) mmol/L Carbon Dioxide 24 (21-32) mmol/L Anion Gap 6 (3-11) BUN 29 H (6-23) mg/dl Creatinine 0.70 (0.6-1.4) mg/dl Est Cr Clr Drug Dosing 84.8 ml/min Est GFR ( Amer) 104.8 ml/min Est GFR (Non-Af Amer) 90.4 ml/min BUN/Creatinine Ratio 41.4 H (10-20) Glucose 96 (70-99(Fasting)) mg/dl POC Glucose 84 (70-99) mg/dl Lactate (0.4-2.0) mmol/L Calcium 8.1 L (8.6-10.3) mg/dl Total Bilirubin 2.2 H (0.2-1.0) mg/dl Direct Bilirubin 1.4 H (0-0.2) mg/dl AST 39 (13-39) U/L ALT 25 (7-52) U/L Alkaline Phosphatase 144 H (34-104) U/L Troponin I High Sens (0-20) pg/ml Total Protein 4.3 L (6.0-8.3) gm/dl Albumin 2.3 L (3.4-5.0) gm/dl Globulin (2.5-4.0) gm/dl Albumin/Globulin Ratio (0.9-2) Lipase (11-82) U/L Urine Color Urine Appearance (Clear) Urine pH (4.5-7.5) Ur Specific Healy (1.000-1.030) Urine Protein (Negative) Urine Glucose (UA) (Negative) Urine Ketones (Negative) Urine Blood (Negative) Urine Nitrite (Negative) Urine Bilirubin (Negative) Urine Urobilinogen (Negative) Ur Leukocyte Esterase (Negative) Urine WBC (Auto) (0-5) /hpf Urine RBC (Auto) (0-4) /hpf U Hyaline Cast (Auto) (0-5) /lpf U Epithel Cells (Auto) (0-5) /lpf Urine Bacteria (Auto) (Negative) Nasal Screen MRSA (PCR) (Negative) SARS-CoV-2, RNA, NAAT (NEGATIVE) 02/21/23 02/21/23 02/21/23 Range/Units 05:28 02:45 02:45 WBC 7.52 (4.8-10.8) K/ul RBC 4.09 L (4.70-6.10) M/uL Hgb 12.4 L (14.0-18.0) g/dl Hct 37.0 L (42.0-52.0) % MCV 90.5 (80.0-100.0) fL MCH 30.3 (25.0-34.0) pg MCHC 33.5 (32.0-36.0) g/dL RDW Std Deviation 44.0 (36.4-46.3) fL RDW Coeff of Jessica 13.2 (11.5-14.5) % Plt Count 92 L (130-400) K/uL MPV 10.6 (9.4-12.4) fL Immature Gran % (Auto) 0.5 % Neut % (Auto) 86.0 % Lymph % (Auto) 6.6 % Izard % (Auto) 6.3 % Eos % (Auto) 0.1 % Baso % (Auto) 0.5 % Neut # (Auto) 6.46 (1.40-6.50) K/uL Lymph # (Auto) 0.50 L (1.2-3.4) K/uL Izard # (Auto) 0.47 (0.11-0.59) K/uL Eos # (Auto) 0.01 (0-0.50) K/uL Baso # (Auto) 0.04 (0-0.2) K/uL Immature Gran # (Auto) 0.04 (0.01-0.20) K/uL PT (9.0-12.0) Seconds INR (0.9-1.1) Sodium (136-145) mmol/L Potassium (3.5-5.1) mmol/L Chloride (98-107) mmol/L Carbon Dioxide (21-32) mmol/L Anion Gap (3-11) BUN (6-23) mg/dl Creatinine (0.6-1.4) mg/dl Est Cr Clr Drug Dosing ml/min Est GFR ( Amer) ml/min Est GFR (Non-Af Amer) ml/min BUN/Creatinine Ratio (10-20) Glucose (70-99(Fasting)) mg/dl POC Glucose (70-99) mg/dl Lactate (0.4-2.0) mmol/L Calcium (8.6-10.3) mg/dl Total Bilirubin (0.2-1.0) mg/dl Direct Bilirubin (0-0.2) mg/dl AST (13-39) U/L ALT (7-52) U/L Alkaline Phosphatase (34-104) U/L Troponin I High Sens (0-20) pg/ml Total Protein (6.0-8.3) gm/dl Albumin (3.4-5.0) gm/dl Globulin (2.5-4.0) gm/dl Albumin/Globulin Ratio (0.9-2) Lipase (11-82) U/L Urine Color Dark Yellow Urine Appearance Cloudy A (Clear) Urine pH 6.0 (4.5-7.5) Ur Specific Healy > 1.045 H (1.000-1.030) Urine Protein 1+ H (Negative) Urine Glucose (UA) Negative (Negative) Urine Ketones Negative (Negative) Urine Blood Trace H (Negative) Urine Nitrite Positive A (Negative) Urine Bilirubin 2+ H (Negative) Urine Urobilinogen Positive H (Negative) Ur Leukocyte Esterase Negative (Negative) Urine WBC (Auto) 1-5 (0-5) /hpf Urine RBC (Auto) 5-10 H (0-4) /hpf U Hyaline Cast (Auto) 1-5 (0-5) /lpf U Epithel Cells (Auto) 10-20 H (0-5) /lpf Urine Bacteria (Auto) Negative (Negative) Nasal Screen MRSA (PCR) Negative (Negative) SARS-CoV-2, RNA, NAAT (NEGATIVE) 02/21/23 02/20/23 02/20/23 Range/Units 00:20 23:08 19:31 WBC (4.8-10.8) K/ul RBC (4.70-6.10) M/uL Hgb (14.0-18.0) g/dl Hct (42.0-52.0) % MCV (80.0-100.0) fL MCH (25.0-34.0) pg MCHC (32.0-36.0) g/dL RDW Std Deviation (36.4-46.3) fL RDW Coeff of Jessica (11.5-14.5) % Plt Count (130-400) K/uL MPV (9.4-12.4) fL Immature Gran % (Auto) % Neut % (Auto) % Lymph % (Auto) % Izard % (Auto) % Eos % (Auto) % Baso % (Auto) % Neut # (Auto) (1.40-6.50) K/uL Lymph # (Auto) (1.2-3.4) K/uL Izard # (Auto) (0.11-0.59) K/uL Eos # (Auto) (0-0.50) K/uL Baso # (Auto) (0-0.2) K/uL Immature Gran # (Auto) (0.01-0.20) K/uL PT 15.0 H (9.0-12.0) Seconds INR 1.4 H (0.9-1.1) Sodium 135 L (136-145) mmol/L Potassium 3.5 (3.5-5.1) mmol/L Chloride 106 (98-107) mmol/L Carbon Dioxide 21 (21-32) mmol/L Anion Gap 8 (3-11) BUN 28 H (6-23) mg/dl Creatinine 0.51 L (0.6-1.4) mg/dl Est Cr Clr Drug Dosing 116.3 ml/min Est GFR ( Amer) 119.3 ml/min Est GFR (Non-Af Amer) 103.0 ml/min BUN/Creatinine Ratio 54.9 H (10-20) Glucose 107 H (70-99(Fasting)) mg/dl POC Glucose 92 (70-99) mg/dl Lactate (0.4-2.0) mmol/L Calcium 7.7 L (8.6-10.3) mg/dl Total Bilirubin (0.2-1.0) mg/dl Direct Bilirubin (0-0.2) mg/dl AST (13-39) U/L ALT (7-52) U/L Alkaline Phosphatase (34-104) U/L Troponin I High Sens (0-20) pg/ml Total Protein (6.0-8.3) gm/dl Albumin (3.4-5.0) gm/dl Globulin (2.5-4.0) gm/dl Albumin/Globulin Ratio (0.9-2) Lipase (11-82) U/L Urine Color Urine Appearance (Clear) Urine pH (4.5-7.5) Ur Specific Healy (1.000-1.030) Urine Protein (Negative) Urine Glucose (UA) (Negative) Urine Ketones (Negative) Urine Blood (Negative) Urine Nitrite (Negative) Urine Bilirubin (Negative) Urine Urobilinogen (Negative) Ur Leukocyte Esterase (Negative) Urine WBC (Auto) (0-5) /hpf Urine RBC (Auto) (0-4) /hpf U Hyaline Cast (Auto) (0-5) /lpf U Epithel Cells (Auto) (0-5) /lpf Urine Bacteria (Auto) (Negative) Nasal Screen MRSA (PCR) (Negative) SARS-CoV-2, RNA, NAAT (NEGATIVE) 02/20/23 02/20/23 02/20/23 Range/Units 19:15 16:49 16:20 WBC (4.8-10.8) K/ul RBC (4.70-6.10) M/uL Hgb (14.0-18.0) g/dl Hct (42.0-52.0) % MCV (80.0-100.0) fL MCH (25.0-34.0) pg MCHC (32.0-36.0) g/dL RDW Std Deviation (36.4-46.3) fL RDW Coeff of Jessica (11.5-14.5) % Plt Count (130-400) K/uL MPV (9.4-12.4) fL Immature Gran % (Auto) % Neut % (Auto) % Lymph % (Auto) % Izard % (Auto) % Eos % (Auto) % Baso % (Auto) % Neut # (Auto) (1.40-6.50) K/uL Lymph # (Auto) (1.2-3.4) K/uL Izard # (Auto) (0.11-0.59) K/uL Eos # (Auto) (0-0.50) K/uL Baso # (Auto) (0-0.2) K/uL Immature Gran # (Auto) (0.01-0.20) K/uL PT (9.0-12.0) Seconds INR (0.9-1.1) Sodium 134 L (136-145) mmol/L Potassium 3.7 (3.5-5.1) mmol/L Chloride 104 (98-107) mmol/L Carbon Dioxide 21 (21-32) mmol/L Anion Gap 9 (3-11) BUN 30 H (6-23) mg/dl Creatinine 0.60 (0.6-1.4) mg/dl Est Cr Clr Drug Dosing 108.6 ml/min Est GFR ( Amer) 111.6 ml/min Est GFR (Non-Af Amer) 96.3 ml/min BUN/Creatinine Ratio 50.0 H (10-20) Glucose 111 H (70-99(Fasting)) mg/dl POC Glucose (70-99) mg/dl Lactate 1.5 (0.4-2.0) mmol/L Calcium 8.1 L (8.6-10.3) mg/dl Total Bilirubin 2.3 H (0.2-1.0) mg/dl Direct Bilirubin (0-0.2) mg/dl AST 85 H (13-39) U/L ALT 39 (7-52) U/L Alkaline Phosphatase 195 H (34-104) U/L Troponin I High Sens 14.1 (0-20) pg/ml Total Protein 5.2 L (6.0-8.3) gm/dl Albumin 2.7 L (3.4-5.0) gm/dl Globulin 2.5 (2.5-4.0) gm/dl Albumin/Globulin Ratio 1.1 (0.9-2) Lipase < 3 L (11-82) U/L Urine Color Urine Appearance (Clear) Urine pH (4.5-7.5) Ur Specific Healy (1.000-1.030) Urine Protein (Negative) Urine Glucose (UA) (Negative) Urine Ketones (Negative) Urine Blood (Negative) Urine Nitrite (Negative) Urine Bilirubin (Negative) Urine Urobilinogen (Negative) Ur Leukocyte Esterase (Negative) Urine WBC (Auto) (0-5) /hpf Urine RBC (Auto) (0-4) /hpf U Hyaline Cast (Auto) (0-5) /lpf U Epithel Cells (Auto) (0-5) /lpf Urine Bacteria (Auto) (Negative) Nasal Screen MRSA (PCR) (Negative) SARS-CoV-2, RNA, NAAT NEGATIVE (NEGATIVE) 02/20/23 Range/Units 16:20 WBC 5.93 (4.8-10.8) K/ul RBC 3.71 L (4.70-6.10) M/uL Hgb 11.3 L (14.0-18.0) g/dl Hct 32.5 L (42.0-52.0) % MCV 87.6 (80.0-100.0) fL MCH 30.5 (25.0-34.0) pg MCHC 34.8 (32.0-36.0) g/dL RDW Std Deviation 42.1 (36.4-46.3) fL RDW Coeff of Jessica 13.1 (11.5-14.5) % Plt Count 82 L (130-400) K/uL MPV 10.8 (9.4-12.4) fL Immature Gran % (Auto) 0.8 % Neut % (Auto) 87.1 % Lymph % (Auto) 5.7 % Izard % (Auto) 6.2 % Eos % (Auto) 0.0 % Baso % (Auto) 0.2 % Neut # (Auto) 5.16 (1.40-6.50) K/uL Lymph # (Auto) 0.34 L (1.2-3.4) K/uL Izard # (Auto) 0.37 (0.11-0.59) K/uL Eos # (Auto) 0.00 (0-0.50) K/uL Baso # (Auto) 0.01 (0-0.2) K/uL Immature Gran # (Auto) 0.05 (0.01-0.20) K/uL PT (9.0-12.0) Seconds INR (0.9-1.1) Sodium (136-145) mmol/L Potassium (3.5-5.1) mmol/L Chloride (98-107) mmol/L Carbon Dioxide (21-32) mmol/L Anion Gap (3-11) BUN (6-23) mg/dl Creatinine (0.6-1.4) mg/dl Est Cr Clr Drug Dosing ml/min Est GFR ( Amer) ml/min Est GFR (Non-Af Amer) ml/min BUN/Creatinine Ratio (10-20) Glucose (70-99(Fasting)) mg/dl POC Glucose (70-99) mg/dl Lactate (0.4-2.0) mmol/L Calcium (8.6-10.3) mg/dl Total Bilirubin (0.2-1.0) mg/dl Direct Bilirubin (0-0.2) mg/dl AST (13-39) U/L ALT (7-52) U/L Alkaline Phosphatase (34-104) U/L Troponin I High Sens (0-20) pg/ml Total Protein (6.0-8.3) gm/dl Albumin (3.4-5.0) gm/dl Globulin (2.5-4.0) gm/dl Albumin/Globulin Ratio (0.9-2) Lipase (11-82) U/L Urine Color Urine Appearance (Clear) Urine pH (4.5-7.5) Ur Specific Healy (1.000-1.030) Urine Protein (Negative) Urine Glucose (UA) (Negative) Urine Ketones (Negative) Urine Blood (Negative) Urine Nitrite (Negative) Urine Bilirubin (Negative) Urine Urobilinogen (Negative) Ur Leukocyte Esterase (Negative) Urine WBC (Auto) (0-5) /hpf Urine RBC (Auto) (0-4) /hpf U Hyaline Cast (Auto) (0-5) /lpf U Epithel Cells (Auto) (0-5) /lpf Urine Bacteria (Auto) (Negative) Nasal Screen MRSA (PCR) (Negative) SARS-CoV-2, RNA, NAAT (NEGATIVE)
[2023-02-21] MEDS ORDERED: PANTOprazole 40 MG in SYRINGE 0 ML IV SCH (11:00)
[2023-02-21] MEDS ORDERED: ONDANSETRON INJ 2 MG/ML 2 ML VIAL IV PRN (12:07)
[2023-02-21] MEDS ORDERED: HYDROmorphone INJ 0.5 MG/0.5 ML SYR IV PRN (12:07)
[2023-02-21] MEDS ORDERED: GLYCOPYRROLATE 0.2 MG/ML VIAL IV PRN (12:07)
[2023-02-21] MEDS ORDERED: LORazepam 2 MG/1 ML VIAL IV PRN (12:07)
[2023-02-21] MEDS: HYDROmorphone INJ 1 MG/ML SYRINGE IV PRN ×2 (19:47→21:34)
--- NOTE | 2023-02-21 22:35 | Hospitalist Progress Note ---
Date of Service February 21, 2023 Assessment & Plan (1) Cecum perforation: Plan: 77yo male with history of metastatic colon cancer presenting with 3 weeks of progressively worsening abdominal pain and distention. Imaging as above with suggestion of cecal perforation with large volume of extraluminal stool/abscess between the base of the cecum and the bladder. Also with extensive metastatic disease noted. Patient presently afebrile, HD stable at present. Patient to be taken to the OR for exploratory laparotomy. -Admission to MICU following surgical intervention -Continue Zosyn Patient transitioned to comfort measures on 02/21 [facility] if oral pain meds are not helping. will transfer out of ICU (2) Hypertension: Plan: Blood pressure adequately controlled at present. Patient is on Carvedilol 3.125mg po BID and Diltiazem 240mg po daily -Hold antihypertensive agents for now -Closely monitor blood pressure (3) Hypothyroidism: Plan: Chronic. Stable. Last TSH on 12/14/22 = 4.131. Patient is on Synthroid 50mcg po daily -Hold Synthroid for now -If patient is unable to take PO in the next several days should initiate IV Synthroid (4) COPD (chronic obstructive pulmonary disease): Plan: Chronic. Stable. Patient denies cough, SOB or wheeze -Duonebs PRN (5) Cirrhosis of liver: Plan: Patient with liver cirrhosis, MELD 3.0 score of 16. Appear to be relatively well compensated at this time. He has known varices, denies melena/hematochezia -Resume Carvedilol when patient can tolerate PO -Resume Lactulose when patient can tolerated PO -Consider nutrition consultation (6) Metastatic colon cancer to liver: Plan: Noted. Patient is no longer receiving chemotherapy F/E/N - Heplock. Electrolytes WNL. NPO for now Ppx - SCDs Code - Full Dispo -Admit to MICU Admission and Anticipated Discharge Date Admission Date: February 20, 2023 Subjective Patient reports no new symptoms Review of Systems Review of Systems: All systems reviewed & are unremarkable except as noted in HPI & below Physical Exam Physical Exam: General: patient in moderate distress secondary to abdominal pain, oriented x 3 Skin: warm, dry, intact, no rashes or lesions HEENT: NC/AT Heart: +S1/S2, regular with ectopy, no m/r/g Lungs: equal air entry bilaterally, no rales/rhonchi/wheezes Abd: absent bowel sounds, soft, distended, tender to palpitation with rebound/guarding/peritonitis Ext: warm, 2+ pulses in UE/LE bilaterally, no clubbing/cyanosis, 2+ edema Neuro: nonfocal, patient AA&O x 4, speech intact, no facial droop, moving all extremities on command with equal strength 5/5 Results & Data Results & Data Vital Signs (Past 12 Hours) Vital Signs Pulse Resp BP Pulse Ox O2 Del Method O2 Flow Rate 02/21/23 16:29 Nasal Cannula 4 02/21/23 15:13 88 16 95 02/21/23 15:13 113/57 L 02/21/23 15:00 88 21 92 02/21/23 14:43 87 16 97 02/21/23 14:43 112/58 L 02/21/23 14:00 87 23 96 02/21/23 13:43 84 22 95 02/21/23 13:43 113/56 L 02/21/23 13:00 86 16 96 02/21/23 12:44 85 21 96 02/21/23 12:44 105/55 L 02/21/23 12:00 85 22 93 02/21/23 11:13 85 16 93 02/21/23 11:13 108/53 L 02/21/23 11:37 85 PG Care Time/CCT Total # of Minutes Spent Total Time Spent with Patient: Total time spent is greater than 50% in coordination of care (as documented) at patient's floor/unit and/or counseling patient: Coding Level of Care Code 50722 SUB INP/OBS CARE 2MIN Diagnoses Cecum perforation K35.32 Hypertension I10 Hypothyroidism E03.9 COPD (chronic obstructive pulmonary disease) J44.9 Cirrhosis of liver K74.60 Metastatic colon cancer to liver C18.9; C78.7
[2023-02-22] MEDS ORDERED: HEPARIN 100 UNIT/ML 5ML FLUSH FLUSH PRN (02:16)
[2023-02-22] MEDS: HYDROmorphone INJ 1 MG/ML SYRINGE IV PRN ×3 (03:39→11:37)
[2023-02-22] MEDS: LACTATED RINGER'S 1,000 ML IV SCH ×4 (03:42→23:02)
--- NOTE | 2023-02-22 09:08 | Palliative Care Progress Note ---
Date of Service February 22, 2023 Assessment & Plan (1) Palliative care by specialist: Plan: I returned a call from Ella York (Nurse Practitioner) at [facility]/tel [phone] re: Mr. Gomez. She says they dont utilize or provide duragesic or methadone. She believes it would be liquid/tablet morphine, IM haldol and Ativan tabs. They can obtain dilaudid tabs which they can crush/dissolve to administer. I advised that if pt is keeping PO down today I will move him to oral dilaudid and haldol to manage pain, agitation/anxiety and nausea. Per Ella, they have a staff meeting later today and this case will be discussed. She says she will call me afterwards. Thank you for allowing us to participate in the ongoing care of this patient. Please don't hesitate to call or page with any additional concerns. Dr. Pretty Duval DNP Director, Palliative Care (2) Inmate in correctional facility: Admission and Anticipated Discharge Date Admission Date: February 20, 2023 Results & Data Vital Signs (Past 12 Hours) Vital Signs Temp Pulse Resp BP Pulse Ox O2 Del Method O2 Flow Rate 02/22/23 07:26 36.5 C 103 H 17 114/57 L 94 Nasal Cannula 3 02/22/23 02:48 36.7 C 87 18 100/62 94 Nasal Cannula 4 02/21/23 21:30 Nasal Cannula 3 02/21/23 22:53 36.4 C L 91 H 18 102/58 L 93 Nasal Cannula 3 PG Care Time/CCT Total # of Minutes Spent Total Time Spent with Patient: Total time spent is greater than 50% in coordination of care (as documented) at patient's floor/unit and/or counseling patient: Coding Level of Care Code None Diagnoses Palliative care by specialist Z51.5 Inmate in correctional facility Z65.1
[2023-02-22] MEDS: PIPERACILLIN/TAZOBACTAM 4.5 GM in DEXTROSE 5% 100 ML IV SCH ×3 (09:35→23:03)
--- NOTE | 2023-02-22 09:42 | Electrocardiogram Report ---
Test Reason : Blood Pressure : / mmHG Vent. Rate : 084 BPM Atrial Rate : 084 BPM P-R Int : 158 ms QRS Dur : 106 ms QT Int : 406 ms P-R-T Axes : 074 -13 060 degrees QTc Int : 479 ms Normal sinus rhythm Incomplete right bundle branch block Poor R wave progression, consider anterior NH vs. lead placement vs. LVH Abnormal ECG When compared with ECG of 17-DEC-2022 12:53, No significant change was found Confirmed by Duke Temple ([id number]) on 02/22/2023 9:41:54 AM Referred By: [facility] Confirmed By:Duke Temple
--- NOTE | 2023-02-22 10:41 | Communication Note ---
Date of Service: February 22, 2023 Palliative Med: Brief Note contacted by Dr. Mccabe, half-way physician, currently covering [facility] while they look to recruit a new permanent half-way physician. Dr Mccabe and I discussed pt case with events to date. he had not allie michelle pt presented with +acute perf and is s/p surgery. We spoke about pt issues with n/v, tolerating PO but NGT is out and he was doing ok with ice chips - we will see how he does with clears today. I discussed I would move pt to oral Dilaudid, since this is a med that the half-way can obtain per Ella York [employer], whom I spoke with early this morning (see prev note from earlier today) and would recc this is used along with oral Haldol liquid and Ativan prn for continued EOL symptom mgt. We discussed pt prognosis and agreed he likely has weeks to live. Dr Mccabe is aware pt elected comfort care and is in agreement with this plan of care for EOL terminal adenoca colon. Dr. Mccabe can be reached at [phone] ext [phone] TS 12min Thank you for allowing us to participate in the ongoing care of this patient. Please don't hesitate to call or page with any additional concerns. Dr. Pretty Duval DNP Director, Palliative Care
--- NOTE | 2023-02-22 10:54 | Surgery Progress Note ---
Date of Service February 22, 2023 Assessment & Plan (1) Metastatic colon cancer to liver: (2) Cirrhosis of liver: (3) COPD (chronic obstructive pulmonary disease): (4) Hypertension: (5) Perforation of cecum: Plan POD # 2 s/p ex lap with right colectomy and primary anastomosis with drain insertion -now on comfort measures Plan: Pain management per palliative care would keep ciara drain to bulb suction given high output okay to start clear liquids slowly kvng can be removed in 2 weeks our services signing off, please call with questions/concerns Discussed with Dr. Garcia who agrees with above. Admission and Anticipated Discharge Date Admission Date: February 20, 2023 Subjective patient sleeping upon entering room, looks more comfortable today pain still present, not as severe per patient sleeping better Physical Exam Constitutional: + frail appearing and cooperative; no acute distress Gastrointestinal (Abdomen): Inspection/Auscultation: + abdomen distended, + abdominal surgical drain present (serous) and + hypoactive bowel sounds; + abnormal bowel sounds Psychiatric: Orientation: alert and oriented x 3 Results & Data Vital Signs (Past 12 Hours) Vital Signs Temp Pulse Resp BP Pulse Ox O2 Del Method O2 Flow Rate 02/22/23 07:26 36.5 C 103 H 17 114/57 L 94 Nasal Cannula 3 02/22/23 02:48 36.7 C 87 18 100/62 94 Nasal Cannula 4 02/21/23 22:53 36.4 C L 91 H 18 102/58 L 93 Nasal Cannula 3
[2023-02-22] MEDS ORDERED: HYDROmorphone INJ 1 MG/ML SYRINGE IV PRN (12:59)
[2023-02-22] MEDS ORDERED: haloperidoL 1 MG TAB PO PRN (13:00)
--- NOTE | 2023-02-22 13:34 | Palliative Care Progress Note ---
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 IF he tolerates oral Dilaudid can likely be dc tomorrow, will return to [facility] for comfort care/EOL * In my multiple conversations with senior living health providers, Duragesic and methadone PO are NOT options. They can offer oral Morphine, dilaudid, haldol and ativan. * Pt reaffirms desire for comfort care, wants to focus on pain relief and avoid EOL suffering. * I have spoken with Ella BARNETT and Dr Palacio from senior living health teams - see previous notes * I have updated primary team and nursing. Thank you for allowing us to participate in the ongoing care of this patient. Please don't hesitate to call or page with any additional concerns. Dr. Pretty Duval DNP Director, Palliative Care Admission and Anticipated Discharge Date Admission Date: February 20, 2023 Subjective NGT out tolerating ice chips, few sips water does not want juice or soda, feels it will be too bloating Awake and alert. notes Dilaudid was more helpful for pin than morphine no n/v Review of Systems Review of Systems: All systems reviewed & are unremarkable except as noted in Subjective Physical Exam Constitutional: WD/WN, vitals as above Eyes: PERRL, conjunctivae normal, anicteric sclerae ENMT: MM less dry, dentition fair Neck: trachea midline, no thyromegaly Respiratory: normal respiratory effort and able to speak in complete sentences Auscultation: + diminished lung sounds Cardiovascular: RRR, no murmur, no edema Gastrointestinal (Abdomen): incision CDI. TTP . BS +/soft; +guarding Musculoskeletal: shackles left hand and feet generalized weakness Skin: pale, warm Neurologic: PERRL, EOMI, accommodation nl, no face palsy, no dysarthria Psychiatric: A+Ox3, euthymic affect Results & Data Vital Signs (Past 12 Hours) Vital Signs Temp Pulse Resp BP Pulse Ox O2 Del Method O2 Flow Rate 02/22/23 12:55 36.6 C 95 H 17 110/61 93 Nasal Cannula 2 02/22/23 11:48 86 94 Room Air 02/22/23 08:30 Nasal Cannula 02/22/23 07:26 36.5 C 103 H 17 114/57 L 94 Nasal Cannula 3 02/22/23 02:48 36.7 C 87 18 100/62 94 Nasal Cannula 4 Laboratory Results reviewed Diagnostic Findings no new PG Care Time/CCT Total # of Minutes Spent Total Time Spent: 60 Total Time Spent with Patient: Total time spent is greater than 50% in coordination of care (as documented) at patient's floor/unit and/or counseling patient: I spent 60 minutes overall addressing this case: 10 in medical data review/discussion with referring provider(s) and/or preparation for the visit 15 in direct interaction with the patient + 2 guards 10 Advance Care Planning/Goals of Care discussions as detailed above in note (must be >16min) 10 in subsequent review and synthesis of assessment and plan 15 in communicating with other providers regarding the patient's case: primaryteam and nursing [place] [address] SUB INP/OBS CARE 3/50MIN Patient Type Established History Comprehensive Exam Comprehensive Medical Decision Making High Complexity Diagnoses Palliative care by specialist Z51.5 Cancer related pain G89.3 Adenocarcinoma of sigmoid colon C18.7 Adenocarcinoma of cecum C18.0 Advanced care planning/counseling discussion Z71.89 Cecum perforation K35.32 Abdominal pain R10.9 Inmate in correctional facility Z65.1
--- NOTE | 2023-02-22 15:14 | Operative Report ---
Post Operative Report Pre & Post Diagnosis Operation Date: 02/20/23 20:00 Pre-Op Diagnosis: Metastatic colon cancer to liver Post-Op Diagnosis: 1.Metastatic colon cancer to liver 2.Perforated cecal colon cancer with abscess. I identified the patient and participated in the time-out.: Yes Procedure Operation Date: 02/20/23 20:00 Actual Procedures p Exploratory Laparotomy with right colon resection(Not Applicable) - Hira Banks MD Surgeon Hira Banks MD Plate Developer none Estimated Blood Loss 50 Findings Consistent with Post-Op Diagnosis Perforated cecal cancer with necrotic cancer abscess cavity in RLQ. Specimens Right colon Drains Poncho in RLQ abscess cavity Anesthesia Type General Complications None Indications This is a 77-year-old male who was admitted to ED with acute onset abdominal pain. He has a known history of metastatic cecal carcinoma and is undergoing current chemotherapy. He has CT scan which shows a right lower quadrant necrotic abscess and perforation of his cecal cancer. There is free air on CT scan along with peritoneal signs on exam. We talked him in detail about the options including palliative or operative intervention. I went over the risks of bleeding, infection, reoperation, ostomy formation and during the procedure. He understands all this and wishes to proceed with operative exploration. Description of Procedure The patient was taken to the OR and underwent excellent general anesthesia. His abdomen was prepped and draped in normal sterile fashion. A midline incision was made from below the xiphod to below his umbilicus. Dissection was then taken down to identify the fascia. Since his fascia incised in the midline. This was then opened up to into the peritoneal cavity. There was a large amount of purulent fluid but no fecal contamination. Interoperative cultures were then obtained. His small bowel was run without any abnormalities noted. There was cancer throughout his liver but no intraperitoneal implants. His colon was followed to the cecum where there was a large phlegmon of tissue. There was a portion of his sigmoid colon colon which was adherent to phlegmon but not fistulized and was freed sharply. There was no defect created in the sigmoid colon. The abscess cavity was then entered and there was a large amount of necrotic tissue. The cecum was grasped and using a harmonic scalpel the the peritoneal attachments were taken down off the lateral wall to free up the cecum. Continuing mobilization of the cecum this was done until just prior to the hepatic flexure. The portion of the cecum was completely necrotic and open therefore a clamp was placed on this to prevent further spillage. An Endo WENDY was used to transect the right colon distal to the cancer. The Endo WENDY was then used to transect the small bowel on prior proximal to the ileocecal valve. The mesocolon was then taken down with a series of clamps and silk ties. The specimen was sent for pathologic evaluation. Abdomen was irrigated out and suctioned out to clear and the abscess cavity was debrided. A [id number] anastomosis was then created between the ascending colon and the ileum. This was done with three fires of the Endo WENDY stapler. The suture line was reinforced with silks. The defect in the mesentery was then closed with interru pted silk sutures. Another 2 to 3 L of warm saline was then used to irrigate the abdomen no other abnormalities were noted. A Poncho drain was then placed in the abscess cavity in the right lower quadrant brought out with a stab incision in the right lower quadrant. The fascia was then closed with a running PDS. The skin was partially closed with interrupted kvng and packed in between with a gauze. Sterile dressing was applied. He tolerated the procedure well and was extubated in OR and then sent to ICU. I attest to the content of the Intraoperative Record and any orders documented therein. Any exceptions are noted below.
--- NOTE | 2023-02-22 23:12 | Hospitalist Progress Note ---
Date of Service February 22, 2023 Assessment & Plan (1) Cecum perforation: Plan: 77yo male with history of metastatic colon cancer presenting with 3 weeks of progressively worsening abdominal pain and distention. Imaging as above with suggestion of cecal perforation with large volume of extraluminal stool/abscess between the base of the cecum and the bladder. Also with extensive metastatic disease noted. Patient presently afebrile, HD stable at present. Patient to be taken to the OR for exploratory laparotomy. -Admission to MICU following surgical intervention -Continue Zosyn Patient transitioned to comfort measures on 02/21 will try to arange fentanyl patches at skilled nursing if oral pain meds are not helping. will transfer out of ICU On 02/22: placed on oral meds. Goal is to transfer back to [facility] if pain is controlled. (2) Hypertension: Plan: Blood pressure adequately controlled at present. Patient is on Carvedilol 3.125mg po BID and Diltiazem 240mg po daily -Hold antihypertensive agents for now -Closely monitor blood pressure (3) Hypothyroidism: Plan: Chronic. Stable. Last TSH on 12/14/22 = 4.131. Patient is on Synthroid 50mcg po daily -Hold Synthroid for now -If patient is unable to take PO in the next several days should initiate IV Synthroid (4) COPD (chronic obstructive pulmonary disease): Plan: Chronic. Stable. Patient denies cough, SOB or wheeze -Duonebs PRN (5) Cirrhosis of liver: Plan: Patient with liver cirrhosis, MELD 3.0 score of 16. Appear to be relatively well compensated at this time. He has known varices, denies melena/hematochezia -Resume Carvedilol when patient can tolerate PO -Resume Lactulose when patient can tolerated PO -Consider nutrition consultation (6) Metastatic colon cancer to liver: Plan: Noted. Patient is no longer receiving chemotherapy F/E/N - Heplock. Electrolytes WNL. NPO for now Ppx - SCDs Code - Full Dispo -Admit to MICU Admission and Anticipated Discharge Date Admission Date: February 20, 2023 Subjective Patient is a poor historian. Review of Systems Review of Systems: All systems reviewed & are unremarkable except as noted in HPI & below Physical Exam Physical Exam: General: patient appears confused, no new symptoms Skin: warm, dry, intact, no rashes or lesions HEENT: NC/AT Heart: +S1/S2, regular with ectopy, no m/r/g Lungs: equal air entry bilaterally, no rales/rhonchi/wheezes Abd: absent bowel sounds, soft, distended, tender to palpitation with rebound/guarding/peritonitis Ext: warm, 2+ pulses in UE/LE bilaterally, no clubbing/cyanosis, 2+ edema Neuro: nonfocal, patient AA&O x 4, speech intact, no facial droop, moving all extremities on command with equal strength 5/5 Results & Data Results & Data Vital Signs (Past 12 Hours) Vital Signs Temp Pulse Resp BP Pulse Ox O2 Del Method O2 Flow Rate 02/22/23 22:39 36.6 C 90 18 151/73 H 95 Nasal Cannula 2 02/22/23 18:59 36.4 C L 102 H 22 112/74 95 Nasal Cannula 2 02/22/23 15:33 36.8 C 100 H 20 138/74 96 Room Air 02/22/23 12:55 36.6 C 95 H 17 110/61 93 Nasal Cannula 2 02/22/23 11:48 86 94 Room Air PG Care Time/CCT Total # of Minutes Spent Total Time Spent with Patient: Total time spent is greater than 50% in coordination of care (as documented) at patient's floor/unit and/or counseling patient: Coding Level of Care Code 98478 SUB INP/OBS CARE 2MIN Diagnoses Cecum perforation K35.32 Hypertension I10 Hypothyroidism E03.9 COPD (chronic obstructive pulmonary disease) J44.9 Cirrhosis of liver K74.60 Metastatic colon cancer to liver C18.9; C78.7
[2023-02-23] MEDS: HYDROmorphone HCL 2 MG TAB PO PRN ×3 (00:31→16:17)
[2023-02-23] MEDS: LACTATED RINGER'S 1,000 ML IV SCH ×2 (05:51→13:18)
[2023-02-23] MEDS: PIPERACILLIN/TAZOBACTAM 4.5 GM in DEXTROSE 5% 100 ML IV SCH (07:35)
--- NOTE | 2023-02-23 13:25 | Palliative Care Progress Note ---
Date of Service February 23, 2023 Assessment & Plan (1) Palliative care by specialist: (2) Cancer related pain: (3) Adenocarcinoma of sigmoid colon: (4) Adenocarcinoma of cecum: (5) Advanced care planning/counseling discussion: (6) Cecum perforation: (7) Abdominal pain: (8) Inmate in correctional facility: Plan [id number]: ADDENDUM: RETURN CALL FROM DR. PALACIO/JAIL PHYSICIAN. PROVIDED CLINICAL UPDATE AND RECCS OUTLINED BELOW. HE IS IN AGREEMENT WITH THE [facility] BELOW AND THEY CAN MANAGE HIS EARL DRAIN IN THEIR [facility] WHERE THERE IS ALWAYS A NURSE PRESENT. DAILY PROVIDER VISITS ARE AVAILABLE WELL IN ADDITION TO THE NURSING SUPPORT. DR. PALACIO ASKS THAT THEY BE NOTIFIED WHEN PATIENT CAN RETURN TO [facility]. I ADVISED HE MAY BE READY FOR DC EARLY TOMORROW, SO DR PALACIO IS GOING TO SPEAK WITH THE MEDICAL TEAM AND ASSURE THEY HAVE ADEQUATE MEDS AND STAFFING. Rocio Duval DNP Suboptimal pain control. Will increase to Dilaudid 6mg po q2h prn mod to severe pain and Dilaudid 8mg q3h prn very severe pain unrelieved by lower dose. He is tolerating the tab form safely, no n/v/d/c For now will leave Dilaudid 1mg IV for very severe pain unrelieved by oral meds I have reduced IVF rate to 80ml / hr from 150ml/hr - this may be contributing to his higher EARL drain output pt re affirms DNR/DNI code status and desire for comfort care/EOL care due to terminal maet colon ca. I have called Dr Palacio at retirement to provide update - he was unavailable at time of my call @[phone], per his ward secretary she will have him call me back when he is free. I have updated primary team and nursing. As previously noted: [facility] can provide dilaudid tabs for EOL care/comfort but they do not offer transdermal or IV meds. [facility] following comfort care reccs: - Dilaudid as noted above - Haldol (liquid preferred) 2mg PO q6h prn nausea, agitation, delirium, restlessness - Ativan 1-2mg PO q4h prn anxiety, insomnia, myoclonus Thank you for allowing us to participate in the ongoing care of this patient. Please don't hesitate to call or page with any additional concerns. Dr. Pretty Duval DNP Director, Palliative Care Admission and Anticipated Discharge Date Admission Date: February 20, 2023 Subjective Pain is about the same, tolerating PO liquids, prefers clears/water/some coffee. Taking tabs ok but states pain is not well relieved. Needed IV dose x1 overnight No n/v EARL drain in place, outputs still on the higher side - ?surgery to decide re timing for removal. Review of Systems Review of Systems: All systems reviewed & are unremarkable except as noted in Subjective Physical Exam Constitutional: WD/WN, vitals as above Eyes: PERRL, conjunctivae normal, anicteric sclerae ENMT: MM less dry, dentition fair Neck: trachea midline, no thyromegaly Respiratory: normal respiratory effort and able to speak in complete sentences Auscultation: + diminished lung sounds Cardiovascular: RRR, no murmur, no edema Gastrointestinal (Abdomen): drain in place, dressing CDI. +TTP . BS +/soft; +guarding Musculoskeletal: shackles left hand and feet generalized weakness Skin: pale, warm Neurologic: PERRL, EOMI, accommodation nl, no face palsy, no dysarthria Psychiatric: A+Ox3, euthymic affect Results & Data Vital Signs (Past 12 Hours) Vital Signs Temp Pulse Resp BP Pulse Ox O2 Del Method O2 Flow Rate 02/23/23 07:45 Nasal Cannula 3 02/23/23 07:29 36.8 C 96 H 20 131/71 93 Nasal Cannula 2 PG Care Time/CCT Total # of Minutes Spent Total Time Spent: 75 Total Time Spent with Patient: Total time spent is greater than 50% in coordination of care (as documented) at patient's floor/unit and/or counseling patient: I spent 75 minutes overall addressing this case: 10 in medical data review/discussion with referring provider(s) and/or preparation for the visit 25 in direct interaction with the patient 10 Advance Care Planning/Goals of Care discussions as detailed above in note (must be >16min) 15 in subsequent review and synthesis of assessment and plan 15 in communicating with other providers regarding the patient's case: nursing, primary team [place] [address] SUB INP/OBS CARE 3/50MIN Patient Type Established Medical Decision Making High Complexity Diagnoses Palliative care by specialist Z51.5 Cancer related pain G89.3 Adenocarcinoma of sigmoid colon C18.7 Adenocarcinoma of cecum C18.0 Advanced care planning/counseling discussion Z71.89 Cecum perforation K35.32 Abdominal pain R10.9 Inmate in correctional facility Z65.1
[2023-02-23] MEDS ORDERED: SIMETHICONE 40 MG/0.6 ML 30ML PO PRN (15:39)
--- NOTE | 2023-02-23 22:55 | Hospitalist Progress Note ---
Date of Service February 23, 2023 Assessment & Plan (1) Cecum perforation: Plan: 77yo male with history of metastatic colon cancer presenting with 3 weeks of progressively worsening abdominal pain and distention. Imaging as above with suggestion of cecal perforation with large volume of extraluminal stool/abscess between the base of the cecum and the bladder. Also with extensive metastatic disease noted. Patient presently afebrile, HD stable at present. Patient to be taken to the OR for exploratory laparotomy. -Admission to MICU following surgical intervention -Continue Zosyn Patient transitioned to comfort measures on 02/21 will try to arrange fentanyl patches at shelter if oral pain meds are not helping. will transfer out of ICU On 02/22: placed on oral meds. Goal is to transfer back to [facility] if pain is controlled. On 02.23 Patient will be discharged on 02/24 as [facility] is trying to arrange his comfort meds. (2) Hypertension: Plan: Blood pressure adequately controlled at present. Patient is on Carvedilol 3.125mg po BID and Diltiazem 240mg po daily -Hold antihypertensive agents (3) Hypothyroidism: Plan: Chronic. Stable. Last TSH on 12/14/22 = 4.131. Patient is on Synthroid 50mcg po daily -Hold Synthroid for now -If patient is unable to take PO in the next several days should initiate IV Synthroid (4) COPD (chronic obstructive pulmonary disease): Plan: Chronic. Stable. Patient denies cough, SOB or wheeze -Duonebs PRN (5) Cirrhosis of liver: Plan: Patient with liver cirrhosis, MELD 3.0 score of 16. Appear to be relatively well compensated at this time. He has known varices, denies melena/hematochezia -Resume Carvedilol when patient can tolerate PO -Resume Lactulose when patient can tolerated PO (6) Metastatic colon cancer to liver: Plan: Noted. Patient is no longer receiving chemotherapy F/E/N - Heplock. Electrolytes WNL. Ppx - SCDs Code - Full Admission and Anticipated Discharge Date Admission Date: February 20, 2023 Subjective Patient is confused. Review of Systems Review of Systems: All systems reviewed & are unremarkable except as noted in HPI & below Physical Exam Physical Exam: General: patient appears confused, no new symptoms Skin: warm, dry, intact, no rashes or lesions HEENT: NC/AT Heart: +S1/S2, regular with ectopy, no m/r/g Lungs: equal air entry bilaterally, no rales/rhonchi/wheezes Abd: absent bowel sounds, soft, distended, tender to palpitation with rebou nd/guarding/peritonitis Ext: warm, 2+ pulses in UE/LE bilaterally, no clubbing/cyanosis, 2+ edema Neuro: nonfocal, patient AA&O x 4, speech intact, no facial droop, moving all extremities on command with equal strength 5/5 Results & Data Results & Data Vital Signs (Past 12 Hours) Vital Signs O2 Del Method O2 Flow Rate 02/23/23 19:35 Nasal Cannula 3 PG Care Time/CCT Total # of Minutes Spent Total Time Spent with Patient: Total time spent is greater than 50% in coordination of care (as documented) at patient's floor/unit and/or counseling patient: Coding Level of Care Code 38711 SUB INP/OBS CARE 2/35MIN Diagnoses Cecum perforation K35.32 Hypertension I10 Hypothyroidism E03.9 COPD (chronic obstructive pulmonary disease) J44.9 Cirrhosis of liver K74.60 Metastatic colon cancer to liver C18.9; C78.7
[2023-02-24] MEDS: LACTATED RINGER'S 1,000 ML IV SCH (03:44)
[2023-02-24] MEDS ORDERED: HEPARIN 100 UNIT/ML 5ML FLUSH FLUSH PRN (10:16)
--- NOTE | 2023-02-24 12:17 | Palliative Care Progress Note ---
Date of Service February 24, 2023 Assessment & Plan (1) Palliative care by specialist: (2) Cancer related pain: Plan: doing well on current dilaudid po regimen. 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 He will need to return to the [facility] with the following comfort care reccs: - Dilaudid Dilaudid 6mg po q2h prn mod to severe pain or dyspnea and Dilaudid 8mg q3h prn very severe pain or dyspnea unrelieved by lower dose - Haldol (liquid preferred) 2mg PO q6h prn nausea, agitation, delirium, restlessness - Ativan 1-2mg PO q4h prn anxiety, insomnia, myoclonus * Pt reaffirms no code, and desires comfort care/EOL mgt. He is aware this will continue at [facility]. Anticipated dc today. * D/w primary team, nursing * DC plan d/w guards x2 at bedside who advised once dc is formally decided upon they will contact long-term for transport vehicle to return pt there. Thank you for allowing us to participate in the ongoing care of this patient. Please don't hesitate to call or page with any additional concerns. Dr. Pretty Duval DNP Director, Palliative Care Admission and Anticipated Discharge Date Admission Date: February 20, 2023 Subjective remains on comfort care pain controlled to his preference tolerating clears, appetite ok strength about the same, can still repositioning himself a little bit in bed drain output decreasing no n/v/d/c anticipating dc back to [facility] today Review of Systems Review of Systems: All systems reviewed & are unremarkable except as noted in Subjective Physical Exam Constitutional: + ill appearing, + frail appearing, + disheveled, cooperative and + underweight Eyes: PERRL, conjunctivae normal, anicteric sclerae ENMT: Mouth: + poor dentition Neck: trachea midline, no thyromegaly Respiratory: normal respiratory effort and able to speak in complete sentences Auscultation: + diminished lung sounds Cardiovascular: RRR, no murmur, no edema Gastrointestinal (Abdomen): +TTP, BS+/soft, +drain/light/nearly clear pink mildly serosanguinous fluids Musculoskeletal: generalized weakness Skin: + turgor decreased and + dry skin diffusely tattooed Neurologic: PERRL, EOMI, accommodation nl, no face palsy, no dysarthria Psychiatric: Orientation: alert and oriented x 3 Eye Contact: good eye contact Affect: euthymic affect Cognition: recent memory grossly intact, remote memory grossly intact, attention grossly intact and language grossly int act Estimated Intelligence: consistent with education level Insight: good insight Judgment: good judgement Results & Data Vital Signs (Past 12 Hours) Vital Signs Temp Pulse Resp BP Pulse Ox O2 Del Method 02/24/23 07:45 Room Air 02/24/23 07:57 36.4 C L 87 16 148/67 H 87 L Room Air Laboratory Results no new data/comfort care Diagnostic Findings no new data/comfort care PG Care Time/CCT Total # of Minutes Spent Total Time Spent: 65 Total Time Spent with Patient: Total time spent is greater than 50% in coordination of care (as documented) at patient's floor/unit and/or counseling patient: I spent 65 minutes overall addressing this case: 5 in medical data review/discussion with referring provider(s) and/or preparation for the visit 20 in direct interaction with the patient 20 Advance Care Planning/Goals of Care discussions as detailed above in note (must be >16min) - he affirms no code, comfort care and has made peace with mortality 5 in subsequent review and synthesis of assessment and plan 15 in communicating with other providers regarding the patient's case: nursing, primary team long-term staff [place] [address] SUB INP/OBS CARE 3/50MIN Patient Type Established History Comprehensive Exam Comprehensive Medical Decision Making High Complexity Diagnoses Palliative care by specialist Z51.5 Cancer related pain G89.3 Cecum perforation K35.32 Adenocarcinoma of cecum C18.0 Adenocarcinoma of sigmoid colon C18.7 Advanced care planning/counseling discussion Z71.89 Abdominal pain R10.9 Inmate in correctional facility Z65.1
[2023-02-24] MEDS: HYDROmorphone HCL 2 MG TAB PO PRN ×2 (12:38→23:01)
--- NOTE | 2023-02-24 13:06 | Discharge Summary ---
Discharge Summary Date of Service February 24, 2023 Notes For Next Care Provider On Hospice/Comfort measures only Medication Changes From Visit Dilaudid 6mg po q2h prn pain Lorazepam 1 mg po q4h prn anxiety/myoclonus Haldol 2mg po q6h prn nausea or agitation, restlessness All other home meds discontinued Admission HPI Per Admitting Provider Mario Gomez is a 77yo male with history of colon cancer with metastatic disease to lung and liver as well as HCV, HTN, HLP and liver cirrhosis with esophageal varices presenting from [facility] with complaint of ongoing abdominal pain. Patient reports 3 weeks of progressively worsening abdominal pain and abdominal distention. He has had ongoing intermittent nausea. He reports decreased flatus and small, infrequent BMs that "look like yellow mustard". He is not eating much. Patient reports that the pain today is "the worst pain ever". Pain is generalized in the abdomen but worst in the lower abdomen. In is increased with movement and deep breathing. He denies fever, chills but has had some shortness of breath secondary to the pain. In the ER he is afebrile, HD stable Patient evaluated by Dr. Banks of General Surgery and is to go to the OR for exploratory laparotomy and resection. ER Course: LR x 1L at 150mL/hr Zosyn 4.5gm Zofran 4mg Morphine 4mg NSS x 1L bolus Principal Dx & Hospital Course #1 = Principal Diagnosis (1) Cecum perforation: 77yo male with history of metastatic colon cancer presenting with 3 weeks of progressively worsening abdominal pain and distention. Imaging as above with suggestion of cecal perforation with large volume of extraluminal stool/abscess between the base of the cecum and the bladder. Also with extensive metastatic disease noted. He went urgently to the OR for exploratory laparotomy and was found ot have a cecum perforation-had partial colectomy with primary end to end anastomosis with drain left in abscess collection Initially treated with Zosyn for IV abx but transitioned to comfort measures only due to metastatic disease Patient transitioned to comfort measures on 02/21 -pain controlled with po dilaudid-continue prn pain and breathlessness -give lorazepam prn anxiety,agitation, myoclonus -give haldol prn delirium,nausea, restlessness -surgical drain to be managed by [facility] and can remain in place -Roper to remain in place -tolerating clear liquids by mouth for comfort-can advance as tolerated if desired (2) Hypertension: dc home po meds for hospice (3) Hypothyroidism: Chronic. Stable. Last TSH on 12/14/22 = 4.131. Patient is on Synthroid 50mcg po daily which has been discontinued on hospice (4) COPD (chronic obstructive pulmonary disease): Chronic. Stable. Patient denies cough, SOB or wheeze albuterol inhaler prn (5) Cirrhosis of liver: Patient with liver cirrhosis dc home lactulose, Coreg (6) Metastatic colon cancer to liver: Noted. Patient is no longer receiving chemotherapy going on hospice Plan Dispo-dc to [facility] on comfort measures only Discussed care with Dr. Palacio at [facility] DNR/DNI Discharge Exam Constitutional + ill appearing and + thin Cardiovascular Rate/Rhythm: regular rate and regular rhythm Gastrointestinal (Abdomen) Inspection/Auscultation: + abdomen distended (mild) and normal bowel sounds; + abdomen abnormal to inspection (ex lap incision with dressing c/d/i) Percussion/Palpation: + abdomen tender (at incision site); no guarding and abdomen not rigid Psychiatric Orientation: alert, oriented to person, oriented to place, oriented to time and cooperative Genitourinary Roper catheter in place draining dark yellow urine Updated Medication List Medication Instructions Recorded Confirmed Type carvedilol 3.125 mg tablet 3.125 mg PO BID 04/13/21 02/20/23 History diltiazem HCl 240 mg capsule,24 240 mg PO DAILY 04/13/21 02/20/23 History hr,extended release lactulose 10 gram/15 mL oral 20 g PO BID 06/30/22 02/20/23 History solution tamsulosin 0.4 mg capsule 0.4 mg PO DAILY 06/30/22 02/20/23 History ascorbic acid (vitamin C) 500 mg 500 mg PO DAILY 08/06/22 02/20/23 History tablet ferrous gluconate 324 mg (38 mg 324 mg PO DAILY 08/06/22 02/20/23 History iron) tablet albuterol sulfate 90 mcg/actuation 2 puff inhalation TIDR PRN 12/17/22 02/20/23 Rx aerosol inhaler (Ventolin HFA) shortness of breath or wheezing #8.5 grams food supplemt, lactose-reduced 1 ea PO BID 02/20/23 02/20/23 History (Ensure oral liquid) levothyroxine 50 mcg tablet 50 mcg PO DAILYBB 02/20/23 02/20/23 History polyethylene glycol 3350 17 17 g PO DAILY 02/20/23 02/20/23 History gram/dose oral powder (Miralax) vitamin E 1 applic topical BID 02/20/23 02/20/23 History haloperidol 1 mg tablet 2 mg PO Q6H PRN agitation, 02/24/23 Rx restlessness, nausea #30 tabs hydromorphone 2 mg tablet 6 mg PO Q2H PRN Pain or 02/24/23 Rx (Dilaudid) breathlessness #30 tabs lorazepam 1 mg tablet 1 mg PO Q4H PRN Anxiety, insomnia, 02/24/23 Rx or myoclonus #10 tabs Hospital Stay Data Consultations 02/20/23 19:04 Consult General Surgery Stat 02/20/23 19:17 ED Decision to Admit Stat 02/20/23 22:06 Consult Windows Software Developer Routine 02/20/23 22:59 Consult Windows Software Developer Routine 02/20/23 23:53 Consult Palliative Care Routine Procedures Performed Operation Date: 02/20/23 20:00 Actual Procedures p Exploratory Laparotomy with right colon resection(Not Applicable) - Hira Banks MD Diagnostic Imagining Performed 02/20/23 16:35 CT abd pelvis IV con only Stat Pending Results Patient Have Any Pending Studies at Discharge: No Discharge Instructions Given to Patient (Per Discharging Provider) You are entering hospice and focusing on comfort measures due to your metastatic colon cancer. You can continue to take the Dilaudid by mouth as needed for pain or breathlessness, lorazepam as needed for anxiety or agitation, and Haldol as needed for nausea/agitation/restlessness or delirium. You can take liquids by mouth as desired. Continue supplemental oxygen as needed for comfort. The drain in your abscess can stay in place and can be removed as needed if drainage discontinues. You will not be on any antibiotics as the goal is comfo rt at this point. Total Time Total Time Spent Total Time Spent (In Minutes): 35 min Total Time Includes: Examination of the Patient, Discharge Planning, Medication Reconciliation and Communication With Other Providers (Dr. Palacio/[facility] doctor, Palliative Medicine) Coding Level of Care Code 11604 INP/OBS DISCH >30 MIN Diagnoses Cecum perforation K35.32 Hypertension I10 Hypothyroidism E03.9 COPD (chronic obstructive pulmonary disease) J44.9 Cirrhosis of liver K74.60 Metastatic colon cancer to liver C18.9; C78.7
--- NOTE | 2023-02-24 14:56 | Hospitalist Progress Note ---
Date of Service February 24, 2023 Assessment & Plan (1) Cecum perforation: Plan: 77yo male with history of metastatic colon cancer presenting with 3 weeks of progressively worsening abdominal pain and distention. Imaging as above with suggestion of cecal perforation with large volume of extraluminal stool/abscess between the base of the cecum and the bladder. Also with extensive metastatic disease noted. He went urgently to the OR for exploratory laparotomy and was found ot have a cecum perforation-had partial colectomy with primary end to end anastomosis with drain left in abscess collection Initially treated with Zosyn for IV abx but transitioned to comfort measures only due to metastatic disease Patient transitioned to comfort measures on 02/21 -pain controlled with po dilaudid-continue prn pain and breathlessness -give lorazepam prn anxiety,agitation, myoclonus -give haldol prn delirium,nausea, restlessness -surgical drain to be managed by [facility] and can remain in place -Roper to remain in place -tolerating clear liquids by mouth for comfort-can advance as tolerated if desired (2) Hypertension: Plan: dc home po meds for hospice (3) Hypothyroidism: Plan: Chronic. Stable. Last TSH on 12/14/22 = 4.131. Patient is on Synthroid 50mcg po daily which has been discontinued on hospice (4) COPD (chronic obstructive pulmonary disease): Plan: Chronic. Stable. Patient denies cough, SOB or wheeze albuterol inhaler prn (5) Cirrhosis of liver: Plan: Patient with liver cirrhosis dc home lactulose, Coreg (6) Metastatic colon cancer to liver: Plan: Noted. Patient is no longer receiving chemotherapy going on hospice Plan [facility] only tomorrow once 2 physicians present at jail to do his DNR Discussed care with Dr[facility] Palacio at jail DNR/DNI Admission and Anticipated Discharge Date Admission Date: February 20, 2023 Subjective Pt having abd pain but just got pain medicine for first time since yesterday. Plan was for discharge today but cancelled due to not having 2 doctors there to sign his DNR. Pt tolerating clear liquids diet, no nausea Physical Exam Constitutional: + ill appearing and + thin Cardiovascular: Rate/Rhythm: regular rate and regular rhythm Gastrointestinal (Abdomen): Inspection/Auscultation: + abdomen distended (mild) and normal bowel sounds; + abdomen abnormal to inspection (ex lap incision with dressing c/d/i) Percussion/Palpation: + abdomen tender (at incision site); no guarding and abdomen not rigid Psychiatric: Orientation: alert, oriented to person, oriented to place, oriented to time and cooperative Results & Data Results & Data Vital Signs (Past 12 Hours) Vital Signs Temp Pulse Resp BP Pulse Ox O2 Del Method 02/24/23 07:45 Room Air 02/24/23 07:57 36.4 C L 87 16 148/67 H 87 L Room Air PG Care Time/CCT Total # of Minutes Spent Total Time Spent with Patient: Total time spent is greater than 50% in coordination of care (as documented) at patient's floor/unit and/or counseling patient: Coding Level of Care Code 48926 SUB INP/OBS CARE 09/29MIN Diagnoses Cecum perforation K35.32 Hypertension I10 Hypothyroidism E03.9 COPD (chronic obstructive pulmonary disease) J44.9 Cirrhosis of liver K74.60 Metastatic colon cancer to liver C18.9; C78.7
--- NOTE | 2023-02-25 12:04 | Palliative Care Progress Note ---
Date of Service February 25, 2023 Assessment & Plan (1) Palliative care by specialist: Plan: Mr Gomez is beginning to transition to more of an active dying process. There are early cyanotic chnages in nailbeds with increasing lethargy. Pain has not intensified but resp efforts seems more pronounced today. Guards x2 at bedside indicate they feel there has been a downturn in his condition. (2) Cancer related pain: Plan: Tolerating current dilaudid po regimen, alst dose yesterday evening no new changes today anticipate dc back to 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 He will need to return to the [facility] with the following comfort care reccs: - Dilaudid Dilaudid 6mg po q2h prn mod to severe pain or dyspnea and Dilaudid 8mg q3h prn very severe pain or dyspnea unrelieved by lower dose - Haldol (liquid preferred) 2mg PO q6h prn nausea, agitation, delirium, restlessness - Ativan 1-2mg PO q4h prn anxiety, insomnia, myoclonus * Mr Gomez is transitioning to active dying. Anticipated survival is likely days. Guards updated/they will convey to detention team. * D/w primary team, nursing * DC plan d/w guards x2 at bedside who advised once dc is formally decided upon they will contact detention for transport vehicle to return pt there. Thank you for allowing us to participate in the ongoing care of this patient. Please don't hesitate to call or page with any additional concerns. Dr. Pretty Duval DNP Director, Palliative Care Admission and Anticipated Discharge Date Admission Date: February 20, 2023 Subjective antic dc today at 1pm he is more lethargic this morning wakes to voice, answers some questions appropriately denies acute pain, denies n/v has not taken PO this morning last dose opioid med last night Review of Systems Review of Systems: All systems reviewed & are unremarkable except as noted in Subjective Physical Exam Constitutional: + ill appearing, + frail appearing and + lethargic Eyes: PERRL ENMT: MM dry, dentition fair Neck: no stridor Respiratory: mild inc effort, +use of accessory muscles +abd breathing, diminished throughout, fine crackles Cardiovascular: S1S2, no overt JVD Gastrointestinal (Abdomen): dressing CDI Musculoskeletal: generalized weakness Skin: nailbeds with early cyanosis BUE and BLE skin is pale, sl cool no overt mottling trace BLE edema shackles BLE Neurologic: lethargic but wakes to voice, answers simple questions Psychiatric: mood subdued Results & Data Vital Signs (Past 12 Hours) Vital Signs Temp Pulse Resp BP Pulse Ox O2 Del Method 02/25/23 07:00 36.7 C 78 18 133/57 L 89 L Room Air Laboratory Results no new data/on comfort care Diagnostic Findings no new data/on comfort care PG Care Time/CCT Total # of Minutes Spent Total Time Spent: 55 Total Time Spent with Patient: Total time spent is greater than 50% in coordination of care (as documented) at patient's floor/unit and/or counseling patient: Coding [place] [address] SUB INP/OBS CARE 3/50MIN Patient Type Established History Comprehensive Exam Comprehensive Medical Decision Making Moderate Complexity Diagnoses Palliative care by specialist Z51.5 Cancer related pain G89.3 Cecum perforation K35.32 Adenocarcinoma of cecum C18.0 Adenocarcinoma of sigmoid colon C18.7 Advanced care planning/counseling discussion Z71.89 Abdominal pain R10.9 Inmate in correctional facility Z65.1
== END 2023-02-25 13:20 | DRG 329 ==
LOC: ED 16:10 → OR 20:01 → 1E 22:06 → SUATTDRO 22:06 → 3W 02-21 16:04
DX: D69.6 Thrombocytopenia, unspecified; Z86.19 Personal history of other infectious and parasitic diseases; Z87.891 Personal history of nicotine dependence; J44.9 Chronic obstructive pulmonary disease, unspecified; Z79.890 Hormone replacement therapy; C78.00 Secondary malignant neoplasm of unspecified lung; Z66 Do not resuscitate; K74.60 Unspecified cirrhosis of liver; K63.1 Perforation of intestine (nontraumatic); I10 Essential (primary) hypertension; C18.0 Malignant neoplasm of cecum; C78.7 Secondary malignant neoplasm of liver and intrahepatic bile duct; I85.10 Secondary esophageal varices without bleeding; K65.1 Peritoneal abscess; Z51.5 Encounter for palliative care; E03.9 Hypothyroidism, unspecified